=== PATIENT | male | born 1970 | race Caucasian/White ===

== ENCOUNTER 2022-01-24 12:09 | Outpatient (REF) | payer SELFPAY | END 2022-01-24 12:10 | disposition home or self-care (01) | LOC: HO.HOSX 12:09 | PROVIDERS: Visit Provider Orthopaedic Surgery | DX: Z13.89 Encounter for screening for other disorder (principal) ==

== ENCOUNTER 2022-06-11 04:58 | Emergency (ER) | payer MEDICARE, MEDICAID, SELFPAY ==
[2022-06-11 05:08] VITALS: BP 154/89; PULSE 89; RESP 18; TEMP 37.1; O2SAT 97; BMI 29.9
[2022-06-11 06:00] VITALS: BP 127/73; PULSE 81; RESP 17; TEMP 37; O2SAT 96
--- OUTSIDE RECORDS SUMMARY | 2022-06-11 06:16 | XMS_ITS | Continuity of Care Document ---
:1970 Author Organization [facility] Address [address] [place] [address]- Care Team Providers Name Role Phone Ger BYRNE, Shaheed Ellis Primary Care Physician Encounter [facility] Date(s): 07/14/21 - 11/11/[address] [address]- Attending Physician: May Gore NP Allergies, Adverse Reactions, Alerts Substance Reaction Severity Status Thiopental Sodium Active Immunizations Given and Recorded Vaccine Date Status Refusal Reason pneumococcal 23-valent vaccine 05/06/19 Given influenza virus vaccine, inactivated 05/06/19 Given Medications atorvastatin 10 mg oral tablet 1 tablet = 10 mg, By Mouth, Daily, 0 Refills, Maintenance Start Date: 03/26/18 Status: OrderedBetamethasone Valerate 0.1% Cream Topically, 2 times a day, apply to affected area BID - hands, leg, and back. Break x 1 week and repeat as needed, 0 Refills, Maintenance, 05/05/19 11:08:00 EST Start Date: 05/05/19 Status: OrderedCentrum Silver 1 tablet, By Mouth, Daily, 0 Refills, Maintenance, 04/02/20 14:35:00 EDT Start Date: 04/02/20 Status: OrderedDupixent Pre-filled Pen 300 mg/2 mL subcutaneous solution See Instructions, every other week, 0 Refills, Maintenance, 04/02/20 14:35:00 EDT Start Date: 04/02/20 Status: Orderedescitalopram 20 mg oral tablet 1 tablet = 20 mg, By Mouth, Daily, 0 Refills, Maintenance, 09/27/18 23:13:10 EDT Start Date: 09/27/18 Status: Orderedlisinopril 5 mg oral tablet 5 mg, 1, tablet, By Mouth, Daily, # 30 tablet, Refills 0, Maintenance, 05/05/19 3:17:07 EST Start Date: 05/05/19 Status: OrderedmetFORMIN 500 mg oral tablet See Instructions, 2 tabs in AM, 1 at night, 0 Refills, Maintenance, 01/22/17 1:21:41 EDT, Tablet Start Date: 01/22/17 Status: Orderedmometasone 0.1% topical ointment 1 application, Topically, Daily, # 45 Gm, 0 Refills, Maintenance, 04/02/20 14:36:00 EDT, Ointment Start Date: 04/02/20 Status: Orderedtriamcinolone 0.1% topical ointment See Instructions, 1 application Topically 2 times a day 14 days, 0 Refills, Maintenance, 04/02/20 14:37:00 EDT, Ointment Start Date: 04/02/20 Status: Ordered Problem List Condition Effective Dates Status Health Status Informant Hypertension(Confirmed) Active Obese class I(Confirmed) Active Type 2 diabetes mellitus(Confirmed) Active Social History Social History Type Response Smoking Status Current every day smoker entered on: 01/22/17 Sex
--- OUTSIDE RECORDS SUMMARY | 2022-06-11 06:16 | XMS_ITS | Continuity of Care Document ---
:1970 Author Organization [facility] Address [address] [place] [address]- Care Team Providers Name Role Phone Shaheed Cyr MD Primary Care Physician Encounter [facility] Date(s): 01/03/21 - 02/08/21 [facility] [address] [place] [address]- Attending Physician: Dominick Garduno MD Referring Physician: Shaheed Cyr MD Allergies, Adverse Reactions, Alerts Substance Reaction Severity [...] Dates Status Health Status Informant Hypertension(Confirmed) Active Type 2 diabetes mellitus(Confirmed) Active Social History Social History Type Response Smoking Status Current every day smoker entered on: 01/22/17 Sex
--- OUTSIDE RECORDS SUMMARY | 2022-06-11 06:16 | XMS_ITS | Continuity of Care Document ---
:1970 Author Organization [facility] Address [address] [place] [address]- Care Team Providers Name Role Phone Shaheed Cyr MD Primary Care Physician Encounter [facility] Date(s): 11/06/19 - 11/06/[address] [address]- [facility] Discharge Disposition: A-D/C Home Attending Physician: Randell Negrete MD Admitting Physician: Randell Negrete MD Referring Physician: Not on Staff, Referring MD Allergies, Adverse Reactions, Alerts Substance Reaction Severity Status NKA Active Immunizations Given and Recorded Vaccine Date Status Refusal Reason pneumococcal 23-valent vaccine 05/06/19 Given influenza virus vaccine, inactivated 05/06/19 Given Medications Amlodipine = 10 mg, By Mouth, Daily, 0 Refills, Maintenance, 11/06/19 12:48:00 EDT Start Date: 11/06/19 Status: Orderedaspirin 81 mg oral tablet 1 tablet = 81 mg, By Mouth, Daily, # 90 tablet, 0 Refills, Maintenance, 05/05/19 3:17:38 EST, Tablet Start Date: 05/05/19 Status: Orderedatenolol 25 mg oral tablet 25 mg, 1, tablet, By Mouth, Daily, # 30 tablet, Refills 0, Maintenance, 01/22/17 1:21:19 Start Date: 01/22/17 Status: Orderedatorvastatin 10 mg oral tablet 1 tablet = 10 mg, By Mouth, Daily, 0 Refills, Maintenance Start Date: 03/26/18 Status: OrderedBetamethasone Valerate 0.1% Cream Topically, 2 times a day, apply to affected area BID - hands, leg, and back. Break x 1 week and repeat as needed, 0 Refills, Maintenance, 05/05/19 11:08:00 EST Start Date: 05/05/19 Status: Orderedescitalopram 20 mg oral tablet 1 tablet = 20 mg, By Mouth, Daily, 0 Refills, Maintenance, 09/27/18 23:13:10 EDT Start Date: 09/27/18 Status: OrderedGabapentin = 100 mg, By Mouth, Daily, 0 Refills, Maintenance, 11/06/19 12:50:00 EDT Start Date: 11/06/19 Status: OrderedIndomethacin = 50 mg, By Mouth, 3 times a day, 0 Refills, Maintenance, 09/27/18 23:14:02 EDT Start Date: 09/27/18 Status: OrderedKeflex monohydrate 500 mg oral capsule 1 capsule = 500 mg, By Mouth, 4 times a day, for 7 days, # 28 capsule, 0 Refills, Acute 11/13/19 13:22:00 EDT, 11/06/19 13:22:00 EDT, Capsule, [facility][id number], 191, cm, 11/06/19 12:46:00 EDT, Height, 125, kg, 11/06/19 12:46:00 EDT, Dry Weight Start Date: 11/06/19 Stop Date: 11/13/19 Status: Orderedlisinopril 5 mg oral tablet 5 mg, 1, tablet, By Mouth, Daily, # 30 tablet, Refills 0, Maintenance, 05/05/19 3:17:07 EST Start Date: 05/05/19 Status: OrderedmetFORMIN 500 mg oral tablet See Instructions, 2 tabs in AM, 1 at night, 0 Refills, Maintenance, 01/22/17 1:21:41 EDT, Tablet Start Date: 01/22/17 Status: Ordered Problem List Condition Effective Dates Status Health Status Informant Hypertension(Confirmed) Active Type 2 diabetes mellitus(Confirmed) Active Vital Signs Most recent to oldest [Reference Range]: 1 Height 191 cm (11/06/19 12:46 PM) Weight 125 kg (11/06/19 12:46 PM) Oxygen Saturation [94-100 %] 98 % (11/06/19 12:46 PM) Pulse Rate [55-90 bpm] 88 bpm (11/06/19 12:46 PM) Blood Pressure [90-138/55-84 mm Hg] 125/85 mm Hg (11/06/19 12:46 PM) Respiratory Rate [16-30 br/min] 18 br/min (11/06/19 12:46 PM) Temperature [96.8-100.4 DegF] 97.0 DegF (11/06/19 12:46 PM) Mode of Delivery (Oxygen) Room air (11/06/19 12:46 PM) Blood pressure sites Arm, right (11/06/19 12:46 PM) Temperature Route Temporal (11/06/19 12:46 PM) Dry Weight 125 kg (11/06/19 12:46 PM) Weight Obtained Via Patient/family stated (11/06/19 12:46 PM) Social History Social History Type Response Smoking Status Current every day smoker entered on: 01/22/17 Sex
--- OUTSIDE RECORDS SUMMARY | 2022-06-11 06:16 | XMS_ITS | Continuity of Care Document ---
:1970 Author Organization [facility] Address [address] [place] [address]- Care Team Providers Name Role Phone Shaheed Cyr MD Primary Care Physician Encounter [facility] Date(s): 08/14/20 - 09/13/20 [facility] [place] [address] [place], [place] [address] Allergies, Adverse Reactions, Alerts Substance Reaction Severity Status Thiopental Sodium Active Immunizations Given and Recorded Vaccine Date Status Refusal Reason pneumococcal 23-valent vaccine 05/06/19 Given influenza virus vaccine, inactivated 05/06/19 Given Medications Amlodipine = 10 mg, By Mouth, Daily, 0 Refills, Maintenance, 11/06/19 12:48:00 EDT Start Date: 11/06/19 Status: Orderedatorvastatin 10 mg oral tablet 1 [...] 04/02/20 14:35:00 EDT Start Date: 04/02/20 Status: OrderedDiflucan 150 mg oral tablet 1 tablet = 150 mg, By Mouth, Once, # 1 tablet, 0 Refills, Soft Stop, 01/20/20 13:56:00 EDT, Tablet, [facility] #[id number], 193, cm, 01/20/20 12:58:00 EDT, Height, 118.7, kg, 01/20/20 12:58:00 EDT, Dry Weight Start Date: 01/20/20 Status: OrderedDupixent Pre-filled Pen 300 mg/2 mL [...] 11/06/19 12:50:00 EDT Start Date: 11/06/19 Status: Orderedgabapentin 300 mg oral capsule 300 mg, 1, capsule, By Mouth, 4 times a day, # 56 capsule, Refills 0, Tot. Refills 0, Maintenance, 04/02/20 15:21:00 EDT, Route to Pharmacy Electronically, [facility] #[id number], 191, cm, 04/02/20 14:26:00 EDT, Height, 121, kg, 04/02/20 14:26:00... Start Date: 04/02/20 Stop Date: 04/16/20 Status: OrderedIndomethacin = 50 mg, By Mouth, 3 times a day, 0 Refills, Maintenance, 09/27/18 23:14:02 EDT Start Date: 09/27/18 Status: Orderedlisinopril 5 [...]
--- OUTSIDE RECORDS SUMMARY | 2022-06-11 06:16 | XMS_ITS | Continuity of Care Document ---
:1970 Author Organization [facility] Address [address] [place] [address]- Care Team Providers Name Role Phone Shaheed Cyr MD Primary Care Physician Encounter [facility] Date(s): 07/11/20 - 07/11/[address] [address] Discharge Disposition: A-D/C Home Attending Physician: Michael Sanchez MD Admitting Physician: Michael Sanchez MD Referring Physician: Michael Sanchez MD Allergies, Adverse Reactions, Alerts Substance Reaction Severity Status Thiopental Sodium Active Immunizations Given and Recorded Vaccine Date Status Refusal Reason pneumococcal 23-valent vaccine 05/06/19 Given influenza virus vaccine, inactivated 05/06/19 Given Medications Amlodipine = 10 mg, By Mouth, Daily, 0 Refills, Maintenance, 11/06/19 12:48:00 EDT Start Date: 11/06/19 Status: Orderedatenolol 25 mg oral tablet 25 mg, 1, tablet, By Mouth, Daily, # 30 tablet, Refills 0, Maintenance, 01/22/17 1:21:19 Start Date: 01/22/17 Status: Orderedatenolol 50 mg oral tablet 50 mg, Tablet, By Mouth, Once, STAT, 07/11/20 14:09:00 EST, Stop date 07/11/20 14:09:00 EST Start Date: 07/11/20 Stop Date: 07/11/20 Status: Completedatorvastatin 10 mg oral tablet 1 tablet = [...] Refills, Soft Stop, 01/20/20 13:56:00 EDT, Tablet, [facility] #[id number], 193, cm, 01/20/20 12:58:00 EDT, Height, 118.7, [...] 04/02/20 15:21:00 EDT, Route to Pharmacy Electronically, [facility] #[id number], 191, cm, 04/02/20 14:26:00 EDT, Height, 121, [...] 14:36:00 EDT, Ointment Start Date: 04/02/20 Status: OrderedNuLYTELY with Flavor Packs oral powder for reconstitution 240 mL, By Mouth, Every 15 minutes, # 4,000 mL, 0 Refills, Maintenance, 07/11/20 14:16:00 EST, [facility] #[id number], Partial fill upon patient request if the prescription is for a schedule II opioid drug., 240 mL By Mouth Every 15 minutes, 191,... Start Date: 07/11/20 Status: Orderedtriamcinolone 0.1% topical ointment See Instructions, 1 application Topically 2 times a day 14 days, 0 Refills, Maintenance, 04/02/20 14:37:00 EDT, Ointment Start Date: 04/02/20 Status: Ordered Problem List Condition Effective Dates Status Health Status Informant Hypertension(Confirmed) Active Type 2 diabetes mellitus(Confirmed) Active Vital Signs Most recent to oldest 1 2 3 [Reference Range]: Height 191 cm (07/11/20 12:27 PM) Oxygen Saturation [94-100 %] 95 % 95 % 96 % (07/11/20 1:58 PM) (07/11/20 1:44 PM) (07/11/20 1:28 P M) Pulse Rate [55-90 bpm] 136 bpm 136 bpm 128 bpm *H* *H* *H* (07/11/20 2:31 PM) (07/11/20 2:25 PM) (07/11/20 12:27 PM) Blood Pressure [90-138/55-84 mm 124/74 mm Hg 124/74 mm Hg 118/87 mm Hg Hg] (07/11/20 2:31 PM) (07/11/20 2:25 PM) (07/11/20 1:58 P M) Respiratory Rate [16-30 br/min] 41 br/min 21 br/min 14 br/min *H* (07/11/20 1:44 PM) *L* (07/11/20 1:58 PM) (07/11/20 1:28 PM ) Temperature [96.8-100.4 DegF] 98.3 DegF (07/11/20 12:27 PM) Mode of Delivery (Oxygen) Room air Room air Room a ir (07/11/20 1:16 PM) (07/11/20 12:58 PM) (07/11/20 12:27 PM) Blood pressure sites Arm, right (07/11/20 12:27 PM) Temperature Route Temporal (07/11/20 12:27 PM) Dry Weight 121 kg (07/11/20 12:27 PM) Social History Social History Type Response Smoking Status Current every day smoker entered on: 01/22/17 Sex
--- OUTSIDE RECORDS SUMMARY | 2022-06-11 06:16 | XMS_ITS | Continuity of Care Document ---
:1970 Author Organization [facility] Address [address] [place] [address]- Care Team Providers Name Role Phone Ger BYRNE, Shaheed Ellis Primary Care Physician Encounter [facility] Date(s): 04/11/22 - 05/11/22 [facility] [address] [place] [address]- Allergies, Adverse Reactions, Alerts Substance Reaction Severity Status Thiopental Sodium Active Immunizations Given and Recorded Vaccine Date Status Refusal Reason pneumococcal 23-valent vaccine 05/06/19 Given influenza virus vaccine, inactivated 05/06/19 Given Medications atenolol 50 mg oral tablet 50 mg, 1, tablet, By Mouth, Daily, # 90 tablet, Refills 3, Tot. Refills 3, Maintenance, 02/06/22 11:24:00 EDT, Route to Pharmacy Electronically, [facility] #[id number], Partial fill upon patient request if the prescription is for a schedule II op... Start Date: 02/06/22 Stop Date: 02/01/23 Status: Orderedatorvastatin 10 mg oral tablet 1 [...] 04/02/20 14:35:00 EDT Start Date: 04/02/20 Status: OrderedEliquis 5 mg oral tablet 1 tablet, By Mouth, 2 times a day, for 90 days, # 180 tablet, 3 Refills, Physician Stop 02/02/23 14:15:00 EDT, 02/07/22 14:15:00 EDT, [facility] #[id number], 188, cm, 07/06/21 16:05:00 EST, Height, 115, kg, 01/22/21 10:32:00 EDT, Dry Weight Start Date: 02/07/22 Stop Date: 02/02/23 Status: Orderedescitalopram 20 mg oral tablet 1 tablet = 20 mg, By Mouth, Daily, 0 Refills, Maintenance, 09/27/18 23:13:10 EDT Start Date: 09/27/18 Status: Orderedlisinopril 5 mg oral tablet 5 mg, 1, tablet, By Mouth, Daily, # 30 tablet, Refills 0, Maintenance, 05/05/19 3:17:07 EST Start Date: 05/05/19 Status: Orderedmagnesium aspartate See Instructions, Patient is unaware of doseage, 0 Refills, Maintenance, 04/12/22 15:33:00 EDT, Partial fill upon patient request if the prescription is for a schedule II opioid drug. Start Date: 04/12/22 Status: OrderedmetFORMIN 500 mg oral tablet See Instructions, 2 tabs in AM, 2 at night, 0 Refills, Maintenance, 01/22/17 1:21:41 EDT, Tablet Start Date: 01/22/17 Status: Orderedmometasone 0.1% topical ointment 1 application, Topically, Daily, # 45 Gm, 0 Refills, Maintenance, 04/02/20 14:36:00 EDT, Ointment Start Date: 04/02/20 Status: Orderedpioglitazone 30 mg oral tablet 1 tablet = 30 mg, By Mouth, Daily, # 30 tablet, 0 Refills, Maintenance, 04/12/22 15:34:00 EDT, Tablet, Partial fill upon patient request if the prescription is for a schedule II opioid drug. Start Date: 04/12/22 Status: OrderedTiadylt ER 180 mg/24 hours oral capsule, extended release 1 capsule, By Mouth, Daily, for 90 days, # 90 capsule, 3 Refills, Physician Stop 02/24/23 9:39:00 EDT, 03/01/22 9:39:00 EDT, [facility] #[id number], 188, cm, 07/06/21 16:05:00 EST, Height, 115, kg, 01/22/21 10:32:00 EDT, Dry Weight Start Date: 03/01/22 Stop Date: 02/24/23 Status: Orderedtriamcinolone 0.1% topical ointment See Instructions, 1 application Topically 2 times a day 14 days, 0 Refills, Maintenance, 04/02/20 14:37:00 EDT, Ointment Start Date: 04/02/20 Status: Ordered Problem List Condition Confirmation Course Effective Dates Status Health Stat us Informant Hypertension Confirmed Active Obese class I Confirmed Active Type 2 diabetes Confirmed Active mellitus Social History Social History Type Response Smoking Status Current every day smoker entered on: 01/22/17 Sex Patient Care team information Care Team PersonnelName: Shhaeed Cyr MD Position: [facility] Oncology MD Member Role: PCP Address: Address: [address] [place] [address] [address] Shaheed Cyr III, [place] [address]- Care Team Related PersonsName: SHERITA MCKEON Address: home [address] [place] [id number] Name: SHERITA WOODS Address: home [address] [place] [id number]
--- OUTSIDE RECORDS SUMMARY | 2022-06-11 06:16 | XMS_ITS | Continuity of Care Document ---
:1970 Author Organization [facility] Address [address] [place] [address]- Care Team Providers Name Role Phone Ger BYRNE, Shaheed Ellis Primary Care Physician Encounter [facility] Date(s): 11/22/19 - 02/09/20 [facility] [address] [place] [address]- [facility] Attending Physician: Rajendra Hernandez MD Allergies, Adverse Reactions, Alerts Substance Reaction [...] 05/05/19 11:08:00 EST Start Date: 05/05/19 Status: OrderedDiflucan 150 mg oral tablet 1 tablet = 150 mg, By Mouth, Once, # 1 tablet, 0 Refills, Soft Stop, 01/20/20 13:56:00 EDT, Tablet, [facility] #[id number], 193, cm, 01/20/20 12:58:00 EDT, Height, 118.7, kg, 01/20/20 12:58:00 EDT, Dry Weight Start Date: 01/20/20 Status: Orderedescitalopram 20 mg oral tablet 1 [...]
--- OUTSIDE RECORDS SUMMARY | 2022-06-11 06:16 | XMS_ITS | Continuity of Care Document ---
:1970 Author Organization [facility] Address [address] [place] [address]- Care Team Providers Name Role Phone Shaheed Cyr MD Primary Care Physician Encounter [facility] Date(s): 05/21/21 - 06/20/21 [facility] [address] [place] [address]- Attending Physician: Melany Lambert Admitting Physician: Melany Lambert Referring Physician: trMelany Allergies, Adverse Reactions, Alerts Substance Reaction Severity [...]
--- OUTSIDE RECORDS SUMMARY | 2022-06-11 06:16 | XMS_ITS | Continuity of Care Document ---
:1970 Author Organization [facility] Address [address] [place] [address]- Care Team Providers Name Role Phone Shaheed Cyr MD Primary Care Physician Encounter [facility] Date(s): 11/20/20 - 02/11/[address] [address] Attending Physician: Michael Sanchez MD Admitting Physician: Michael Sanchez MD Allergies, Adverse Reactions, [...]
--- OUTSIDE RECORDS SUMMARY | 2022-06-11 06:16 | XMS_ITS | Continuity of Care Document ---
:1970 Author Organization [facility] Address [address] [place] [address]- Care Team Providers Name Role Phone Shaheed Cyr MD Primary Care Physician Encounter [facility] Date(s): 09/25/20 - 09/25/[address] [address]- Discharge Disposition: A-D/C Home Attending Physician: Michael [...] Refills, Soft Stop, 01/20/20 13:56:00 EDT, Tablet, [facility] #[id number], 193, cm, 01/20/20 12:58:00 EDT, Height, 118.7, [...] 04/02/20 15:21:00 EDT, Route to Pharmacy Electronically, [facility][id number], 191, cm, 04/02/20 14:26:00 EDT, Height, 121, [...] Hypertension(Confirmed) Active Type 2 diabetes mellitus(Confirmed) Active Procedures Procedure Date Related Diagnosis Body Site Status Colonoscopy 09/25/20 Completed Esophagogastroduodenoscopy 09/25/20 C ompleted Vital Signs Most recent to oldest 1 2 3 [Reference Range]: Height 191 cm (09/25/20 1:10 PM) Oxygen Saturation [94-100 90 % 90 % 93 % %] *L* *L* *L* (09/25/20 3:26 PM) (09/25/20 3:21 PM) (09/25/20 3:1 6 PM) Pulse Rate [55-90 bpm] 80 bpm (09/25/20 1:10 PM) Blood Pressure 99/56 mm Hg 96/62 mm Hg 100/70 mm Hg [90-138/55-84 mm Hg] (09/25/20 3:26 PM) (09/25/20 3:21 PM) ( 3:16 PM) Respiratory Rate [16-30 19 br/min 17 br/min 17 br/mi n br/min] (09/25/20 3:26 PM) (09/25/20 3:21 PM) (09/25/20 3:1 6 PM) Temperature [96.8-100.4 99.3 DegF 96.2 DegF DegF] (09/25/20 3:07 PM) *L* (09/25/20 1:10 PM) Mode of Delivery (Oxygen) Room air Room air Room a ir (09/25/20 3:26 PM) (09/25/20 3:21 PM) (09/25/20 3:0 7 PM) Blood pressure sites Arm, left (09/25/20 1:10 PM) Temperature Route Temporal Temporal (09/25/20 3:07 PM) (09/25/20 1:10 PM) Dry Weight 118.5 kg (09/25/20 1:10 PM) Dry Weight Obtained Via Patient/family stated (09/25/20 1:10 PM) Social History Social History Type Response Smoking Status Current every day smoker entered on: 01/22/17 Sex
--- OUTSIDE RECORDS SUMMARY | 2022-06-11 06:16 | XMS_ITS | Continuity of Care Document ---
:1970 Author Organization [facility] Address [address] [place] [address]- Care Team Providers Name Role Phone Shaheed Cyr MD Primary Care Physician Encounter [facility] Date(s): 04/11/22 - 05/16/[address] [address] Attending Physician: Shaheed Cyr MD Admitting Physician: Shaheed Cyr MD Referring Physician: Shaheed Cyr MD Allergies, [...] 02/06/22 11:24:00 EDT, Route to Pharmacy Electronically, [facility] #[id number], Partial fill upon patient request if the [...] Stop 02/02/23 14:15:00 EDT, 02/07/22 14:15:00 ED[id number], 188, cm, 07/06/21 16:05:00 EST, Height, 115, [...] Stop 02/24/23 9:39:00 EDT, 03/01/22 9:39:00 EDT, [id number], 188, cm, 07/06/21 16:05:00 EST, Height, 115, [...] Patient Care team information Care Team PersonnelName: Shaheed Cyr MD Position: [facility] Oncology MD Member Role: PCP Address: Address: [address] [place] [address] [address] [place] [address]- Care Team Related PersonsName: SHERITA MCKEON Address: home [address] [place] [id number] Name: SHERITA WOODS Address: home [address] [address] [place] [address]
--- OUTSIDE RECORDS SUMMARY | 2022-06-11 06:16 | XMS_ITS | Continuity of Care Document ---
:1970 Author Organization [facility] Address [address] [place] [address]- Care Team Providers Name Role Phone Ger BYRNE, Shaheed Ellis Primary Care Physician Encounter [facility] Date(s): 02/20/21 - 06/20/21 [facility] [address] [place], [place] [address] Attending Physician: May Gore NP Allergies, Adverse [...]
--- OUTSIDE RECORDS SUMMARY | 2022-06-11 06:16 | XMS_ITS | Continuity of Care Document ---
:1970 Author Organization [facility] Address [address] [place] [address]- Care Team Providers Name Role Phone Shaheed Cyr MD Primary Care Physician Encounter [facility] Date(s): 01/20/20 - 01/20/[address] [address]- [facility] Discharge Disposition: A-D/C Home Attending Physician: Sheela Mendoza MD Admitting Physician: Sheela Mendoza MD Referring Physician: Not on Staff, Referring [...] Refills, Soft Stop, 01/20/20 13:56:00 EDT, Tablet, [facility] #[id number], 193, cm, 01/20/20 12:58:00 EDT, Height, 118.7, [...] days, # 28 capsule, 0 Refills, Acute 01/27/20 13:53:00 EDT, 01/20/20 13:53:00 EDT, Capsule, [facility] #[id number], 193, cm, 01/20/20 12:58:00 EDT, Height, 118.7, kg, 01/20/20 12:58:00 EDT, Dry W... Start Date: 01/20/20 Stop Date: 01/27/20 Status: Orderedlisinopril 5 mg oral tablet 5 mg, 1, tablet, By Mouth, Daily, # 30 tablet, Refills 0, Maintenance, 05/05/19 3:17:07 EST Start Date: 05/05/19 Status: OrderedmetFORMIN 500 mg oral tablet See Instructions, 2 tabs in AM, 1 at night, 0 Refills, Maintenance, 01/22/17 1:21:41 EDT, Tablet Start Date: 01/22/17 Status: Orderedtriamcinolone 0.05% topical ointment 1 application, Topically, 2 times a day, for 5 days, apply a thin film, do not apply to face, # 430 Gm, 0 Refills, Acute 01/25/20 13:55:00 EDT, 01/20/20 13:55:00 EDT, Ointment, [id number], 1 application Topically 2 times a day,x5 days... Start Date: 01/20/20 Stop Date: 01/25/20 Status: Ordered Problem List Condition Effective Dates Status Health Status Informant Hypertension(Confirmed) Active Type 2 diabetes mellitus(Confirmed) Active Vital Signs Most recent to oldest [Reference Range]: 1 Height 193 cm (01/20/20 12:58 PM) Weight 118.7 kg (01/20/20 12:58 PM) Oxygen Saturation [94-100 %] 97 % (01/20/20 12:58 PM) Pulse Rate [55-90 bpm] 92 bpm *H* (01/20/20 12:58 PM) Blood Pressure [90-138/55-84 mm Hg] 125/91 mm Hg (01/20/20 12:58 PM) Respiratory Rate [16-30 br/min] 16 br/min (01/20/20 12:58 PM) Temperature [96.8-100.4 DegF] 97.7 DegF (01/20/20 12:58 PM) Mode of Delivery (Oxygen) Room air (01/20/20 12:58 PM) Blood pressure sites Arm, left (01/20/20 12:58 PM) Temperature Route Oral (01/20/20 12:58 PM) Dry Weight 118.7 kg (01/20/20 12:58 PM) Weight Obtained Via Standing scale (01/20/20 12:58 PM) Dry Weight Obtained Via Standing scale (01/20/20 12:58 PM) Social History Social History Type Response Smoking Status Current every day smoker entered on: 01/22/17 Sex
--- OUTSIDE RECORDS SUMMARY | 2022-06-11 06:16 | XMS_ITS | Continuity of Care Document ---
:1970 Author Organization [facility] Address [address] [place] [address]- Care Team Providers Name Role Phone Shaheed Cyr MD Primary Care Physician Encounter [facility] Date(s): 10/12/21 - 11/11/[address] [address] Attending Physician: Melany Lambert Admitting Physician: Melany Lambert Referring Physician: AdmtrMelany Allergies, Adverse Reactions, Alerts Substance Reaction Severity [...]
--- OUTSIDE RECORDS SUMMARY | 2022-06-11 06:16 | XMS_ITS | Continuity of Care Document ---
:1970 Author Organization [facility] Address [address] [place] [address]- Care Team Providers Name Role Phone Shaheed Cyr MD Primary Care Physician Encounter [facility] Date(s): 04/11/22 - 05/15/[address] [address] Attending Physician: Shaheed Cyr MD Admitting Physician: [...] 02/06/22 11:24:00 EDT, Route to Pharmacy Electronically, [facility] #[id number], Partial fill upon patient request if the [...] Stop 02/02/23 14:15:00 EDT, 02/07/22 14:15:00 EDT, [id number], 188, cm, 07/06/21 16:05:00 EST, Height, 115, [...] Stop 02/24/23 9:39:00 EDT, 03/01/22 9:39:00 EDT, [facility][id number], 188, cm, 07/06/21 16:05:00 EST, Height, 115, [...] Care Team PersonnelName: Shaheed Cyr MD Position: [facility] Oncology MD Member Role: PCP Address: Address: [address] [place] [address] [address] [place] [address]- Care Team Related PersonsName: SHERITA MCKEON Address: home [address] [facility] [place] [address] Name: SHERITA WOODS Address: home [address] [place] [address]
--- OUTSIDE RECORDS SUMMARY | 2022-06-11 06:16 | XMS_ITS | Continuity of Care Document ---
:1970 Author Organization [facility] Address [address] [place] [address]- Care Team Providers Name Role Phone Shaheed Cyr MD Primary Care Physician Encounter [facility] Date(s): 10/25/20 - 12/21/[address] [address] Attending Physician: Michael Sanchez [...] 09/27/18 23:13:10 EDT Start Date: 09/27/18 Status: Orderedgabapentin 300 mg oral capsule 300 mg, 1, capsule, By Mouth, 4 times a day, # 56 capsule, Refills 0, Tot. Refills 0, Maintenance, 04/02/20 15:21:00 EDT, Route to Pharmacy Electronically, [facility] #[id number], 191, cm, 04/02/20 14:26:00 EDT, Height, 121, [...]
--- OUTSIDE RECORDS SUMMARY | 2022-06-11 06:16 | XMS_ITS | Continuity of Care Document ---
:1970 Author Organization [facility] Address [address] [place] [address]- Care Team Providers Name Role Phone Shaheed Cyr MD Primary Care Physician Encounter [facility] Date(s): 05/18/19 - 09/04/19 [facility] [place] [address] [place] [address]- [facility] Attending Physician: Rajendra Hernandez MD Referring Physician: Shaheed Cyr MD Allergies, Adverse Reactions, Alerts Substance Reaction Severity Status NKA Active Immunizations Given and Recorded Vaccine Date Status Refusal Reason pneumococcal 23-valent vaccine 05/06/19 Given influenza virus vaccine, inactivated 05/06/19 Given Medications Allopurinol Refills 0, Maintenance, 09/27/18 23:14:12 EDT Start Date: 09/27/18 Status: Orderedaspirin 81 mg oral tablet 1 [...] 05/05/19 11:08:00 EST Start Date: 05/05/19 Status: OrderedBetamethasone Valerate 0.1% Ointment Topically, 2 times a day, apply to affected area BID - hands, leg, and back. Break x 1 week and repeat as needed, 0 Refills, Maintenance, 05/05/19 11:09:28 EST Start Date: 05/05/19 Status: Orderedescitalopram 20 mg oral tablet 1 tablet = 20 mg, By Mouth, Daily, 0 Refills, Maintenance, 09/27/18 23:13:10 EDT Start Date: 09/27/18 Status: OrderedIndomethacin 0 Refills, Maintenance, 09/27/18 23:14:02 EDT Start Date: 09/27/18 Status: Orderedlisinopril 5 mg oral tablet 5 mg, 1, tablet, By Mouth, Daily, # 30 tablet, Refills 0, Maintenance, 05/05/19 3:17:07 EST Start Date: 05/05/19 Status: OrderedmetFORMIN 500 mg oral tablet See Instructions, 2 tabs in AM, 1 at night, 0 Refills, Maintenance, 01/22/17 1:21:41 EDT, Tablet Start Date: 01/22/17 Status: Orderedtriamcinolone 0.1% topical cream Topically, 2 times a day, to affected area BID, 0 Refills, Maintenance, 05/05/19 11:10:34 EST Start Date: 05/05/19 Status: Ordered Problem List Condition Effective Dates Status Health Status Informant Hypertension(Confirmed) Active Type 2 diabetes mellitus(Confirmed) Active Social History Social History Type Response Smoking Status Current every day smoker entered on: 01/22/17 Sex
--- OUTSIDE RECORDS SUMMARY | 2022-06-11 06:16 | XMS_ITS | Continuity of Care Document ---
:1970 Author Organization [facility] Address [address] [place] [address]- Care Team Providers Name Role Phone Shaheed Cyr MD Primary Care Physician Encounter [facility] Date(s): 05/16/21 - 06/15/21 [facility] [place] [address] [place], [place] [address] Attending Physician: Melany Lambert Admitting Physician: Melany Lambert Referring Physician: Melany Lambert Allergies, Adverse Reactions, Alerts Substance Reaction Severity [...]
--- OUTSIDE RECORDS SUMMARY | 2022-06-11 06:16 | XMS_ITS | Continuity of Care Document ---
:1970 Author Organization [facility] Address [address] [place] [address]- Care Team Providers Name Role Phone Shaheed Cyr MD Primary Care Physician Encounter [facility] Date(s): 05/17/21 - 08/10/[address] [address] [phone] Attending Physician: Michael Sanchez MD Admitting Physician: [...]
--- OUTSIDE RECORDS SUMMARY | 2022-06-11 06:16 | XMS_ITS | Continuity of Care Document ---
:1970 Author Organization [facility] Address [address] [place] [address]- Care Team Providers Name Role Phone Shaheed Cyr MD Primary Care Physician Encounter [facility] Date(s): 04/02/20 - 04/02/[address] [address]- [facility] Encounter Diagnosis Herpes zoster (Final) - 04/02/20 Discharge Disposition: A-D/C Home Attending Physician: Naldo French MD Admitting Physician: Naldo French MD Referring Physician: Not on Staff, Referring [...] Refills, Soft Stop, 01/20/20 13:56:00 EDT, [facility]t, [id number], 193, cm, 01/20/20 12:58:00 EDT, Height, 118.7, [...] 04/02/20 15:21:00 EDT, [facility] to [facility]ically[id number], 191, cm, 04/02/20 14:26:00 EDT, Height, 121, [...] 14:37:00 EDT, Ointment Start Date: 04/02/20 Status: OrderedValtrex 1 gm oral tablet 1 tablet = 1 Gm, By Mouth, 3 times a day, for 7 days, # 21 tablet, 0 Refills, Acute 04/09/20 15:21:00 EST, 04/02/20 15:21:00 EDT, Tablet, [facility] #[id number], 191, cm, 04/02/20 14:26:00 EDT, Height, 121, kg, 04/02/20 14:26:00 EDT, Dry Weight Start Date: 04/02/20 Stop Date: 04/09/20 Status: Ordered Problem List Condition Effective Dates Status Health Status Informant Hypertension(Confirmed) Active Type 2 diabetes mellitus(Confirmed) Active Vital Signs Most recent to oldest [Reference Range]: 1 2 Height 191 cm 191 cm (04/02/20 3:51 PM) (04/02/20 2:26 PM) Weight 121.0 kg 121.0 kg (04/02/20 3:51 PM) (04/02/20 2:26 PM) Oxygen Saturation [94-100 %] 95 % 96 % (04/02/20 3:51 PM) (04/02/20 2:26 PM) Pulse Rate [55-90 bpm] 64 bpm 91 bpm (04/02/20 3:51 PM) *H* (04/02/20 2:26 PM) Body Mass Index [18.5-24.99] 33.17 *>HHI* (04/02/20 3:51 PM) Blood Pressure [90-138/55-84 mm Hg] 125/103 mm Hg 123/ 84 mm Hg (04/02/20 3:51 PM) (04/02/20 2:26 PM) Respiratory Rate [16-30 br/min] 20 br/min 16 br/mi n (04/02/20 3:51 PM) (04/02/20 2:26 PM) Temperature [96.8-100.4 DegF] 97.9 DegF 98.0 DegF (04/02/20 3:51 PM) (04/02/20 2:26 PM) Mode of Delivery (Oxygen) Room air Room air (04/02/20 3:51 PM) (04/02/20 2:26 PM) Blood pressure sites Arm, left Arm, left (04/02/20 3:51 PM) (04/02/20 2:26 PM) Temperature Route Oral Temporal (04/02/20 3:51 PM) (04/02/20 2:26 PM) Dry Weight 121.0 kg 121.0 kg (04/02/20 3:51 PM) (04/02/20 2:26 PM) Social History Social History Type Response Smoking Status Current every day smoker entered on: 01/22/17 Sex
--- OUTSIDE RECORDS SUMMARY | 2022-06-11 06:16 | XMS_ITS | Continuity of Care Document ---
:1970 Author Organization [facility] Address [address] [place] [address]- Care Team Providers Name Role Phone Ger BYRNE, Shaheed Ellis Primary Care Physician Encounter [facility] Date(s): 07/31/20 - 08/30/[address] [address]- Allergies, Adverse Reactions, Alerts Substance Reaction Severity [...] Refills, Soft Stop, 01/20/20 13:56:00 EDT, Tablet, [facility] #[id number], 193, cm, 01/20/20 12:58:00 EDT, Height, 118.7, [...] 04/02/20 15:21:00 EDT, Route to Pharmacy Electronically, [facility] #[id number], 191, cm, 04/02/20 14:26:00 EDT, Height, 121, [...]
--- OUTSIDE RECORDS SUMMARY | 2022-06-11 06:16 | XMS_ITS | Continuity of Care Document ---
:1970 Author Organization [facility] Address [address] [place] [address]- Care Team Providers Name Role Phone Ger BYRNE, Shaheed Ellis Primary Care Physician Encounter [facility] Date(s): 01/23/21 - 02/22/21 [facility] [address] [place] [address]- Allergies, Adverse Reactions, Alerts Substance Reaction Severity [...]
--- OUTSIDE RECORDS SUMMARY | 2022-06-11 06:16 | XMS_ITS | Continuity of Care Document ---
:1970 Author Organization [facility] Address [address] [place] [address]- Care Team Providers Name Role Phone Shaheed Cyr MD Primary Care Physician Encounter [facility] Date(s): 04/12/22 - 05/12/[address] [address]- Attending Physician: Melany Lambert Admitting Physician: Melany [...] 02/06/22 11:24:00 EDT, Route to Pharmacy Electronically, [facility] #[id number], Partial fill upon patient request if the [...] Stop 02/02/23 14:15:00 EDT, 02/07/22 14:15:00 EDT, [id number], 188, cm, 07/06/21 16:05:00 EST, Height, 115, [...] Stop 02/24/23 9:39:00 EDT, 03/01/22 9:39:00 EDT, [facility][id number], 188, cm, 07/06/21 16:05:00 EST, Height, 115, [...] Care Team PersonnelName: Shaheed Cyr MD Position: [facility] Oncology MD Member Role: PCP Address: Address: [address] [place] [address] [address] [place] [address]- Care Team Related PersonsName: SHERITA MCKEON Address: home [address] [place] [address] Name: SHERITA WOODS Address: home [address] [place] [address]
--- OUTSIDE RECORDS SUMMARY | 2022-06-11 06:16 | XMS_ITS | Continuity of Care Document ---
:1970 Author Organization [facility] Address [address] [place] [address]- Care Team Providers Name Role Phone Ger BYRNE, Shaheed Ellis Primary Care Physician Encounter [facility] Date(s): 12/04/20 - 01/03/21 [facility] [address] [place] [address]- Allergies, Adverse Reactions, Alerts Substance Reaction Severity [...] 04/02/20 15:21:00 EDT, Route to Pharmacy Electronically, [facility] #[id number], 191, cm, 04/02/20 14:26:00 EDT, Height, 121, kg, 04/02/20 14:26:00... Start Date: 04/02/20 Stop Date: 04/16/20 Status: Orderedlisinopril 5 mg oral tablet 5 [...]
--- OUTSIDE RECORDS SUMMARY | 2022-06-11 06:16 | XMS_ITS | Continuity of Care Document ---
:1970 Author Organization [facility] Address [address] [place] [address]- Care Team Providers Name Role Phone Ger BYRNE, Shaheed Ellis Primary Care Physician Encounter [facility] Date(s): 11/16/20 - 02/03/[address] [address]- Attending Physician: Dominick Garduno MD Allergies, Adverse Reactions, Alerts Substance Reaction [...]
--- OUTSIDE RECORDS SUMMARY | 2022-06-11 06:16 | XMS_ITS | Continuity of Care Document ---
:1970 Author Organization [facility] Address [address] [place] [address]- Care Team Providers Name Role Phone Shaheed Cyr MD Primary Care Physician Encounter [facility] Date(s): 01/22/21 - 01/22/[address] [address]- Discharge Disposition: A-D/C [facility] Attending Physician: Barbara Irving MD Admitting Physician: Barbara Irving MD Referring Physician: Naldo French MD Allergies, Adverse Reactions, Alerts Substance Reaction [...] Hypertension(Confirmed) Active Type 2 diabetes mellitus(Confirmed) Active Results Radiology Reports Exam Date Time Procedure Performing Provider Status 01/22/21 10:59 AM Chest Portable Brenda Calhoun; Auth (Verified) Notes:(Chest Portable) Reason For Exam: Shortness of BreathRESULT: Chest Portable Chest Portable Hx of Present Illness: pt reports he was in the shower this morning when he suddenly felt weak then had a syncopal episode, pt not sure if there was head truama, pt reports he thinks he had loc for 5 minutes, pt now reports hortness of breath and palpitations,; Reason: Shortness of Breath; Clinical Question(s): CHF COMPARISON: Multiple priors, most recent 05/05/2019. FINDINGS: LINES AND TUBES: Redemonstration of a thoracic spinal stimulator. Additional monitoring leads project over the chest. LUNGS AND PLEURA: Clear lungs. Normal pulmonary vascularity. No pleural effusion. No pneumothorax. HEART, MEDIASTINUM AND BRENDA: Heart is normal in size. Normal upper mediastinal and hilar contour. BONES AND SOFT TISSUES: No acute abnormality. Degenerative changes of the glenohumeral joints. IMPRESSION: No acute abnormality. WSN: [id number] Ordering Physician: Naldo French Dictated By: Frank Dickens MD Dictated Date/Time: 01/22/21 11:17 a Reviewed By: Frank Dickens MD Signed By: Frank Dickens MD Signed Date/Time: 01/22/21 11:17 am Transcribed By: KARLA Transcribed Date/Time: 01/22/21 11:16 am Vital Signs Most recent to oldest 1 2 3 [Reference Range]: Height 187 cm 187 cm 187 cm (01/22/21 6:32 PM) (01/22/21 2:23 PM) (01/22/21 10: 32 AM) Weight 115 kg (01/22/21 10:32 AM) Oxygen Saturation [94-100 %] 100 % 98 % 97 % (01/22/21 6:32 PM) (01/22/21 5:48 PM) (01/22/21 2:2 3 PM) Pulse Rate [55-90 bpm] 88 bpm 88 bpm 109 bpm (01/22/21 6:32 PM) (01/22/21 5:48 PM) *H* (01/22/21 2:23 PM ) Blood Pressure [90-138/55-84 122/71 mm Hg 105/80 mm Hg 128 /93 mm Hg mm Hg] (01/22/21 6:32 PM) (01/22/21 5:48 PM) (01/22/21 2:2 3 PM) Respiratory Rate [16-30 18 br/min 18 br/min 25 br/mi n br/min] (01/22/21 6:32 PM) (01/22/21 5:48 PM) (01/22/21 2:2 3 PM) Temperature [96.8-100.4 DegF] 97.4 DegF (01/22/21 10:29 AM) Mode of Delivery (Oxygen) Room air Room air Room a ir (01/22/21 6:32 PM) (01/22/21 5:48 PM) (01/22/21 2:2 3 PM) Blood pressure sites Arm, right Arm, left (01/22/21 6:32 PM) (01/22/21 2:23 PM) Temperature Route Oral (01/22/21 10:29 AM) Dry Weight 115 kg (01/22/21 10:32 AM) Social History Social History Type Response Smoking Status Current every day smoker entered on: 01/22/17 Sex
--- OUTSIDE RECORDS SUMMARY | 2022-06-11 06:17 | XMS_ITS | Continuity of Care Document ---
:1970 Author Organization [facility] Address [address] [place] [address]- Care Team Providers Name Role Phone Shaheed Cyr MD Primary Care Physician Encounter [facility] Date(s): 08/05/19 - 08/15/19 [facility] [place] [address] [place] [address]- [facility] Attending Physician: Melany Lambert Admitting Physician: AdmMelany keith Referring Physician: AdmtrMelany Allergies, Adverse Reactions, Alerts [...]
--- OUTSIDE RECORDS SUMMARY | 2022-06-11 06:17 | XMS_ITS | Continuity of Care Document ---
:1970 Author Organization [facility] Address [address] [place] [address]- Care Team Providers Name Role Phone Ger BYRNE, Shaheed Ellis Primary Care Physician Encounter [facility] Date(s): 11/16/20 - 01/03/21 [facility] [address] [place] [address]- Attending Physician: May Gore NP Allergies, Adverse [...] 04/02/20 15:21:00 EDT, Route to Pharmacy Electronically, [facility] #[id number], 191, cm, 04/02/20 14:26:00 EDT, Height, 121, [...]
--- OUTSIDE RECORDS SUMMARY | 2022-06-11 06:17 | XMS_ITS | Continuity of Care Document ---
:1970 Author Organization [facility] Address [address] [place] [address]- Care Team Providers Name Role Phone Shaheed Cyr MD Primary Care Physician Encounter [facility] Date(s): 07/31/20 - 09/07/[address] [address] Attending Physician: Michael Sanchez MD Admitting Physician: [...] Refills, Soft Stop, 01/20/20 13:56:00 EDT, Tablet, [facility] #[id number], 193, cm, 01/20/20 12:58:00 EDT, Height, 118.7, [...] 04/02/20 15:21:00 EDT, Route to Pharmacy Electronically, [facility] #[id number], 191, cm, 04/02/20 14:26:00 EDT, Height, 121, [...]
--- OUTSIDE RECORDS SUMMARY | 2022-06-11 06:17 | XMS_ITS | Continuity of Care Document ---
:1970 Author Organization [facility] Address [address] [place] [address]- Care Team Providers Name Role Phone Shaheed Cyr MD Primary Care Physician Encounter [facility] Date(s): 07/05/20 - 08/04/20 [facility] [place] [address] [place], [place] [address] Attending Physician: Melany Lambert Admitting Physician: Melany [...] Refills, Soft Stop, 01/20/20 13:56:00 EDT, Tablet, [facility] #[id number], 193, cm, 01/20/20 12:58:00 EDT, Height, 118.7, [...] 04/02/20 15:21:00 EDT, Route to Pharmacy Electronically, [facility] #[id number], 191, cm, 04/02/20 14:26:00 EDT, Height, 121, [...] Daily, # 45 Gm, 0 Refills, Maintenance, 10/25/20 14:36:00 EDT, Ointment Start Date: 04/02/20 Status: OrderedNuLYTELY with Flavor Packs oral powder for reconstitution 240 mL, By Mouth, Every 15 minutes, # 4,000 mL, 0 Refills, Maintenance, 07/11/20 14:16:00 [facility], [facility] #[id number], Partial fill upon patient request if the [...]
--- OUTSIDE RECORDS SUMMARY | 2022-06-11 06:17 | XMS_ITS | Continuity of Care Document ---
:1970 Author Organization [facility] Address [address] [place] [address]- Care Team Providers Name Role Phone Ger BYRNE, Shaheed Ellis Primary Care Physician Encounter [facility] Date(s): 02/26/22 - 04/03/[address] [address] Attending Physician: Dominick Garduno MD Admitting Physician: Dominick Garduno MD Referring Physician: Dominick Garduno MD Allergies, Adverse Reactions, [...] 02/06/22 11:24:00 EDT, [id number], Partial fill upon patient request if the [...] # 180 tablet, 3 Refills, Physician Stop 07/20/22 9:40:00 EST, 07/25/21 9:40:00 EST, [facility] #[id number], 188, cm, 07/06/21 16:05:00 EST, Height, 115, kg, 01/22/21 10:32:00 EDT, Dry Weight Start Date: 07/25/21 Stop Date: 07/20/22 Status: OrderedEliquis 5 mg oral tablet 1 tablet, By Mouth, 2 times a day, for 90 days, # 180 tablet, 3 Refills, Physician Stop 02/02/23 14:15:00 EDT, 02/07/22 14:15:00 EDT, [facility] #[id number], 188, cm, 07/06/21 16:05:00 EST, Height, 115, [...] 14:36:00 EDT, Ointment Start Date: 04/02/20 Status: OrderedTiadylt ER 180 mg/24 hours oral capsule, extended release 1 capsule, By Mouth, Daily, for 90 days, # 90 capsule, 3 Refills, Physician Stop 02/24/23 9:39:00 EDT, 03/01/22 9:39:00 EDT, [facility] #[id number], 188, cm, 07/06/21 16:05:00 EST, Height, 115, [...] on: 01/22/17 Sex Patient Care team information PersonnelName: Shaheed Cyr MD Address: Address: [address] [place] [address] [address] Shaheed yCr III, [place] [address]
--- NOTE | 2022-06-11 06:29 | ED.SKABFB ---
HPI - Skin/Abscess/Foreign Bdy General Chief complaint: Skin/Abscess/Foreign Body Stated complaint: growth on back of neck Time Seen by Provider: 06/11/22 06:28 Source: patient Mode of arrival: ambulatory Limitations: no limitations History of Present Illness complaint: abscess/boil Onset (ago): day(s) (3) Tetanus up to date: yes Location: back Severity: moderate Quality: aching, dull and constant Pain Consistency: constant Relieving factors: none Exacerbating factors: palpation and movement Context: other (hx of boils in the past) Associated symptoms: denies other symptoms Treatments prior to arrival: none Related Data Previous Rx's Medication Instructions Recorded doxycycline hyclate 100 mg capsule 100 mg PO BID 7 days #14 caps 06/11/22 Allergies Allergy/AdvReac Type Severity Reaction Status Date / Time thiopental [SODIUM PENTOTHAL] Allergy Severe BECOMES Unverified 02/24/20 15:04 VIOLENT morphine Allergy Unknown Verified 12/16/18 00:00 zolpidem [Ambien] Allergy Unknown Verified 12/16/18 00:00 Sodium pent Allergy Unknown Uncoded 12/16/18 00:00 Review of Systems Review of Systems: Constitutional : No Fever, No Chills ENT/Mouth : No sore throat, No Rhinorrhea Eyes: No Eye Pain, No Swelling, No Redness Cardiovascular : No Chest Pain, No SOB Respiratory : No Cough, No Sputum Gastrointestinal : No Nausea, No Vomiting, No Diarrhea, No abdominal Pain Genitourinary : No Dysuria, No Hematuria Musculoskeletal : No joint pain, No Myalgias, No Joint Swelling Skin : pos Skin Lesions, positive skin rash Neuro : No Weakness, No Numbness, No Headache Psych : No Anxiety, No Depression Heme/Lymph: No Bruising, No Bleeding,No Lymphadenopathy Endocrine : No Polyuria, No Polydipsia All other systems reviewed and are negative PMFSH Social History Social History Alcohol intake: current Alcohol intake frequency: a few times a week Smoked in Last 30 Days: Yes Use of substances other than those prescribed or required for medical reasons: No Advance Directives: No Physical Exam Vital Signs: Vital Signs: Last Vital Signs Temp 98.6 F 06/11/22 06:00 Pulse 81 06/11/22 06:00 Resp 17 06/11/22 06:00 BP 127/73 06/11/22 06:00 Pulse Ox 96 06/11/22 06:00 O2 Del Method 06/11/22 06:00 BMI result Body Mass Index 29.9 Appearance: Alert. Oriented X3. No acute distress. Eyes: Pupils equal, round and reactive to light. ENT: Pharynx normal. Neck: Normal inspection. Neck supple. CVS: Normal heart rate and rhythm. Pulses normal. Respiratory: No respiratory distress. Breath sounds normal. Abdomen: Soft and nontender. Skin: Skin warm and dry. Normal skin color. Normal skin turgor. back there is a 4cm round fluctuant abscess with overlying erythema no extending erythema Extremities: No lower extremity edema. No calf ttp Neuro: Oriented X 3. No motor deficit. No sensory deficit. Medications Administered Discontinued Medications Generic Name Dose Route Start Last Admin Trade Name Freq PRN Reason Stop Dose Admin Lidocaine HCl 20 ml 06/11/22 06:31 06/11/22 06:36 Lidocaine Hcl 1 % 20 Ml Vial SUBCUT 06/11/22 06:32 20 ml ONCE ONE Administration Medical Decision Making Medical Decision Making MDM Narrative: 51 yo male with hx of DM, afib on eliquis hx of boils but no MRSA here with boil on back for 3+ days but no associated feves, n/v - at this time he did not take his DOAC will I+D the area and start on doxy given redness overlying area and his DM status. Differential Diagnosis abscess, cellulitis, MRSA Tests considered The following testing was considered but not selected: CBC but given normal VS and no systemic signs declined Prescription Management I considered prescription management with: Antibiotic (started on doxycycline for cellulitis) Chronic Conditions Patient?s care impacted by: Diabetes given abscess and DM started on antibiotics Procedures Abscess I/D Site: back Local Anesthetic: lidocaine 1% Amount of anesthesia used (mL): 5 Technique: incised with blade Amount of fluid expressed (mL): 5 Sent for culture/gram staining?: No Irrigation: Yes Packing used?: none Discharge Plan Discharge Clinical Impression: Abscess of skin or subcutaneous tissue Patient Disposition: Home, Self-Care Instructions: Abscess (ED), Incision and Drainage (ED) Additional Instructions: return to ED for any worsening symptoms or concerns monitor for spreading of redness, increased swelling, fevers, vomiting. okay to shower but wait 12 hours area will drain. apply pressure if bleeding take antibiotic with food and full glass of water stay upright for 45 minutes Prescriptions: New doxycycline hyclate 100 mg capsule 100 mg PO BID 7 Days Qty: 14 0RF Stand Alone Forms: Work/School Release Interventions: ED Discharge Assessment Last Done: 06/11/22 06:55 Discharge Date/Time: 06/11/22 06:57
[2022-06-11] MEDS: Lidocaine HCl 1 % 20 ML VIAL SUBCUT (06:36)
== END 2022-06-11 06:57 | disposition home or self-care (01) ==
PROVIDERS: Emergency Provider Emergency Medicine; PCP Internal Medicine Medical Oncology
DX: L02.212 Cutaneous abscess of back [any part, except buttock and flank] (principal); E11.9 Type 2 diabetes mellitus without complications; I48.91 Unspecified atrial fibrillation; Z79.01 Long term (current) use of anticoagulants
CPT/HCPCS: 10060; 99284

== ENCOUNTER 2023-03-24 14:39 | Outpatient (REF) | payer MEDICARE, MEDICAID, SELFPAY ==
--- NOTE | ~2023-03-24 | XR_ITS ---
EXAMINATION: XR WRIST, LEFT CLINICAL INFORMATION: Pain COMPARISON: None available. TECHNIQUE: PA, lateral, and oblique views of the left wrist. FINDINGS: The bones and soft tissues are normal. No fracture. Alignment is anatomic with normal joint spaces. No erosions or abnormal soft tissue calcifications. XR/XR wrist LT min 3V IMPRESSION: Normal left wrist.
[2023-03-24 15:38] LABS: MANUAL DIFF FLAG NO
[2023-03-24 15:51] LABS: Appearance Urine Clear; Color Urine Yellow; Glucose Urine UA >=1000 mg/dL (Negative); Leukocyte Esterase Urine Negative (Negative); Nitrite Urine Negative (Negative); PH 6.5 (5.0-9.0); Specific Gravity - Urine >= 1.030 (1.005-1.025); UMIC TRIGGER UA YES; Urine Blood Negative (Negative); Urine Ketones Trace mg/dL (Negative); Urine Protein Negative (Neg-Trace)
[2023-03-24 15:55] LABS: Bacteria Urine None Seen (None Seen); Hyaline Casts Urine 0-2 /LPF (0-2); RBC Urine 0-2 /HPF (0-2); Squamous Epithelial Cell Urine 0-2 /HPF (0-2); WBC Urine 0-5 /HPF (0-5)
[2023-03-24 17:01] LABS: Basophils Percent Auto 0.4 % (0-2); Eosinophils Absolute Auto 0.5 X10*3/uL (0.0-0.4); Eosinophils Percent Auto 4.9 % (0-4); Hematocrit 39.4 % (42.0-52.0); Hemoglobin 12.9 g/dl (14.0-18.0); Imm Gran Abs Auto 0.18 X10*3/uL (0.00-0.03); Imm Gran Pct Auto 1.8 % (0.0-0.4); Lymphocytes Absolute Auto 1.5 X10*3/uL (1.2-4.9); Lymphocytes Percent Auto 15.1 % (20-40); Mean Corpuscular HGB Conc 32.7 g/dl (31.0-36.0); Mean Corpuscular Hemoglobin 30.6 pg (27.0-33.0); Mean Corpuscular Volume 93.6 fL (80.0-98.0); Mean Platelet Volume 11.2 fL (9.4-12.4); Monocytes Absolute Auto 0.9 X10*3/uL (0.1-1.2); Monocytes Percent Auto 8.8 % (2-11); Neutrophils Absolute Auto 6.8 x10*3/uL (2.0-8.3); Platelet Count 274 X10*3/uL (160-400); Red Blood Count 4.21 X10*6/uL (4.60-5.80); Red Cell Distribution Width 13.3 % (11.0-16.0); White Blood Count 9.8 X10*3/uL (4.8-10.8)
[2023-03-24 17:24] LABS: Estimated Average Glucose 240 mg/dL
[2023-03-24 17:51] LABS: Alanine Aminotransferase 26 U/L (0-40); Albumin Level 3.6 g/dL (3.5-5.0); Alkaline Phosphatase 103 U/L (39-117); Anion Gap 19 (12-20); Aspartate Amino Transferase 15 U/L (5-37); Bilirubin Total 0.4 mg/dL (0.0-1.0); Blood Urea Nitrogen 20 mg/dL (9-16); Calcium 9.9 mg/dL (8.4-10.2); Carbon Dioxide 23 mmol/L (22-29); Chloride 93 mmol/L (96-108); Estimated Glomerular Filt Rate > 60; Glucose Random 312 mg/dL (60-115); Potassium 4.8 mmol/L (3.3-5.1); Sodium 130 mmol/L (135-145); Total Protein 7.6 g/dL (6.5-8.0)
== END 2023-03-24 14:40 | disposition home or self-care (01) ==
LOC: HO.LAB 14:39
PROVIDERS: PCP Internal Medicine Medical Oncology; Visit Provider Internal Medicine Medical Oncology
DX: A41.9 Sepsis, unspecified organism (principal); N39.0 Urinary tract infection, site not specified; R31.9 Hematuria, unspecified; M25.532 Pain in left wrist; E11.69 Type 2 diabetes mellitus with other specified complication
CPT/HCPCS: 36415; 73110; 80053; 81001; 83036; 85025; 87040; 87086

== ENCOUNTER 2023-07-02 13:55 | Outpatient (REF) | payer MEDICARE, MEDICAID, SELFPAY | END 2023-07-02 13:56 | disposition home or self-care (01) | LOC: HO.HOSX 13:55 | PROVIDERS: Visit Provider Orthopaedic Surgery | DX: Z13.89 Encounter for screening for other disorder (principal) ==

== ENCOUNTER 2023-07-08 08:22 | Outpatient (AMB) | payer MEDICARE, MEDICAID, SELFPAY ==
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
[2023-07-08 08:36] VITALS: BMI 29.7
== END 2023-07-08 08:53 | disposition home or self-care (01) ==
PROVIDERS: PCP Internal Medicine Medical Oncology; Visit Provider Orthopaedic Surgery
DX: M19.012 Primary osteoarthritis, left shoulder (principal)
CPT/HCPCS: 99202

== ENCOUNTER 2023-07-08 12:10 | Outpatient (REF) | payer MEDICARE, MEDICAID, SELFPAY ==
--- NOTE | ~2023-07-08 | XR_ITS ---
EXAMINATION: XR SHOULDER, LEFT CLINICAL INFORMATION: Pain. COMPARISON: Radiographs dated 04/14/2017. TECHNIQUE: AP neutral and scapular Y views of the left shoulder are submitted. FINDINGS: There is bony demineralization. The glenohumeral joint is intact and shows moderately severe osteoarthritic change, with joint space narrowing and a large inferior peripheral osteophyte. The acromioclavicular and coracoclavicular intervals are normal. No fracture or dislocation is seen. No soft tissue calcification or foreign body is seen. There is no left pneumothorax. A spinal stimulator lead is noted, projecting over the mid thoracic spine. An electronic device projects over the left upper chest. XR/XR shoulder LT min 2V IMPRESSION: 1. There is moderately severe osteoarthritic change of the left glenohumeral joint. 2. No acute fracture or dislocation is seen.
== END 2023-07-08 12:11 | disposition home or self-care (01) ==
LOC: HO.HOSX 12:10
PROVIDERS: Visit Provider Orthopaedic Surgery
DX: M25.512 Pain in left shoulder (principal); M19.012 Primary osteoarthritis, left shoulder
CPT/HCPCS: 73030; 99202

== ENCOUNTER 2024-02-02 13:07 | Outpatient (REF) | payer MEDICARE, MEDICAID, SELFPAY | END 2024-02-02 13:08 | disposition home or self-care (01) | LOC: HO.LNP 13:07 | PROVIDERS: Visit Provider Internal Medicine Medical Oncology | DX: B07.0 Plantar wart (principal); E11.9 Type 2 diabetes mellitus without complications; L08.9 Local infection of the skin and subcutaneous tissue, unspecified | CPT/HCPCS: 87070; 87077; 87186; 87205 ==

== ENCOUNTER 2024-06-13 23:12 | Emergency (ER) | payer MEDICARE, MEDICAID, SELFPAY ==
[2024-06-13 23:25] VITALS: BP 124/84; PULSE 93; RESP 18; TEMP 36.8; O2SAT 96; BMI 29.7
[2024-06-13 23:59] LABS: Basophils Absolute Auto 0.1 X10*3/uL (0.0-0.2); Basophils Percent Auto 0.4 % (0-2); Eosinophils Absolute Auto 0.2 X10*3/uL (0.0-0.4); Eosinophils Percent Auto 1.4 % (0-4); Hematocrit 34.7 % (42.0-52.0); Hemoglobin 12.1 g/dl (14.0-18.0); Imm Gran Abs Auto 0.05 X10*3/uL (0.00-0.03); Imm Gran Pct Auto 0.4 % (0.0-0.4); Lymphocytes Absolute Auto 1.3 X10*3/uL (1.2-4.9); MANUAL DIFF FLAG SCAN; Mean Corpuscular HGB Conc 34.9 g/dl (31.0-36.0); Mean Corpuscular Hemoglobin 31.3 pg (27.0-33.0); Mean Corpuscular Volume 89.9 fL (80.0-98.0); Mean Platelet Volume 9.9 fL (9.4-12.4); Monocytes Absolute Auto 1.6 X10*3/uL (0.1-1.2); Monocytes Percent Auto 12.8 % (2-11); Neutrophils Absolute Auto 9.5 x10*3/uL (2.0-8.3); Platelet Count 244 X10*3/uL (160-400); Red Blood Count 3.86 X10*6/uL (4.60-5.80); Red Cell Distribution Width 12.8 % (11.0-16.0); SCAN SMEAR FLAG 1; White Blood Count 12.6 X10*3/uL (4.8-10.8)
[2024-06-14 00:06] LABS: Alanine Aminotransferase 24 U/L (0-40); Albumin Level 3.7 g/dL (3.5-5.0); Alkaline Phosphatase 95 U/L (39-117); Anion Gap 15 (12-20); Aspartate Amino Transferase 32 U/L (5-37); Bilirubin Total 0.5 mg/dL (0.0-1.0); Blood Urea Nitrogen 22 mg/dL (9-16); Calcium 8.8 mg/dL (8.4-10.2); Carbon Dioxide 23 mmol/L (22-29); Chloride 102 mmol/L (96-108); Creatinine Clr Calc Pharmacy 135.1; Estimated Glomerular Filt Rate > 60; Glucose Random 123 mg/dL (60-115); Potassium 4.4 mmol/L (3.3-5.1); Sodium 136 mmol/L (135-145); Total Protein 6.9 g/dL (6.5-8.0)
[2024-06-14 00:21] LABS: SLIDE REVIEW VERIFIED
== END 2024-06-14 01:57 | disposition left against medical advice (07) ==
PROVIDERS: Emergency Provider Internal Medicine; PCP Internal Medicine Medical Oncology
DX: K59.00 Constipation, unspecified (principal); Z79.899 Other long term (current) drug therapy
CPT/HCPCS: 36415; 80053; 85025; 99281

== ENCOUNTER 2024-07-16 13:43 | Inpatient (IN) | payer MEDICARE, MEDICAID, SELFPAY ==
--- NOTE | ~2024-07-16 | XR_ITS ---
EXAMINATION: XR FOOT 3 OR MORE VIEWS LEFT HISTORY: infection COMPARISON: There are no prior studies available for comparison. FINDINGS: Three views of the left foot are submitted. There is demineralization of the proximal phalanx of the 5th toe. There is a healing fracture of the proximal phalanx of the 5th toe with callus formation noted. No additional fracture is seen. The joint spaces are preserved. There is a soft tissue defect in the region of the fracture of the 5th proximal phalanx. XR/XR foot LT min 3V IMPRESSION: Soft tissue defect overlying the 5th proximal phalanx. There is a healing fracture of the proximal phalanx of the 5th toe, which may represent a pathologic fracture related to osteomyelitis if there is no history of trauma. Clinical correlation is recommended. Electronically signed by: Shaheed Hill MD 07/16/2024 03:09 PM [facility]
--- NOTE | ~2024-07-16 | XR_ITS ---
CLINICAL HISTORY: PICC Line placement 1 view chest x-ray Comparison: None Findings: Right arm PICC is present, tip of which is in the mid SVC. Spinal stimulating leads are present. No consolidation or effusion. Normal size heart. No acute fracture. IMPRESSION: 1. No acute findings. This document has been electronically signed by: Khushbu Brock MD on 07/19/2024 17:55:37
[2024-07-16 13:49] VITALS: BP 110/72; PULSE 85; RESP 18; TEMP 36.7; O2SAT 99; BMI 31.2
--- NOTE | 2024-07-16 13:57 | ED_ITS ---
HPI - Wound/Laceration General Chief Complaint: Wound/Laceration Stated Complaint: L Foot Infection Sent by Dr Time Seen by Provider: 07/16/24 17:18 Source: patient and family (patient's ) Mode of arrival: wheelchair Limitations: no limitations History of Present Illness ED Provider: Ibis Boucher PA-C HPI narrative: Patient is a 53 year old assigned male at with a history of DM and previous tobacco use presenting to the emergency department today with a worsening left foot wound. Patient states that he has been having issues with his left foot wound for weeks and was recently admitted at [facility] but left against medical advice because he did not like how he was being treated. Patient states that he was seen by podiatry today who did an extensive debridement but recommended he come to the hospital for a surgeon to debride it further. Patient states that the pain is radiating up and into his ankle. Patient denies any dizziness, lightheadedness, abdominal pain, nausea, vomiting, fever, chills, blurry vision, double vision, loss of vision, chest pain, difficulty breathing, shortness of breath, back pain, night sweats, pain with urination, increased urinary frequency, increased urinary urgency, blood in his urine or stool, syncope or a near syncopal episode, recent trauma or falls, bowel incontinence, bladder incontinence, or any other complaints at this time. Related Data Home Medications ?Medication ?Instructions ?Recorded ?Confirmed apixaban 5 mg tablet (Eliquis) 5 mg PO BID 07/08/23 atenolol 50 mg tablet 50 mg PO DAILY 07/08/23 betamethasone dipropionate 0.05 % topical 07/08/23 topical ointment blood sugar diagnostic (FreeStyle #10 ea 07/08/23 Lite Strips) insulin glargine 100 unit/mL (3 35 unit subcut DAILY 07/08/23 mL) subcutaneous pen (Lantus Solostar U-100 Insulin) metformin 500 mg tablet 1,000 mg PO BID 07/08/23 mupirocin 2 % topical ointment topical 07/08/23 verapamil 180 mg 24 hr 180 mg PO DAILY 07/08/23 capsule,extended release Previous Rx's ?Medication ?Instructions ?Recorded doxycycline hyclate 100 mg capsule 100 mg PO BID 7 days #14 caps 06/11/22 Allergies Allergy/AdvReac Type Severity Reaction Status Date / Time thiopental [SODIUM PENTOTHAL] Allergy Severe BECOMES Verified 07/16/24 13:56 VIOLENT morphine Allergy Unknown Unknown Verified 07/16/24 13:56 Sodium pent Allergy Unknown Unknown Uncoded 06/13/24 23:31 Review of Systems 2 Constitutional: Constitutional: Reports no additional constitutional complaints, Denies chills, Denies fever(s) and Denies night sweats Eyes: Eyes: Reports no additional eye complaints, Denies blurry vision, Denies change in vision, Denies diplopia, Denies eye discharge, Denies loss of vision and Denies eye pain ENT: Denies dizziness Cardiovascular: Cardiovascular: Reports no additional cardiovascular complaints, Denies chest pain, Denies lightheadedness, Denies Loss of Consciousness and Denies dyspnea Respiratory: Respiratory: Reports no additional respiratory complaints and Denies dyspnea Gastrointestinal: Gastrointestinal: Reports no additional gastrointestinal complaints, Denies abdominal pain, Denies melena, Denies hematochezia, Denies change in bowel habits and Denies change in stool character Genitourinary: Genitourinary: Reports no additional male genitourinary complaints, Denies hematuria, Denies oliguria, Denies difficulty urinating, Denies dysuria, Denies urinary frequency, Denies urinary hesitancy, Denies urinary incontinence and Denies urinary urgency Musculoskeletal: Musculoskeletal: Reports no additional musculoskeletal complaints, Denies numbness and Denies tingling Comments: left foot pain radiating into left ankle worsening left foot wound Neurologic: Denies dizziness, Denies loss of vision, Denies numbness and Denies tingling Psychiatric: Psychiatric: Reports no additional psychiatric complaints Endocrine: Endocrine: Reports no additional endocrine complaints Hematologic/Lymphatic: Hematologic/Lymphatic: Reports no additional hematologic/lymphatic complaints Allergic/Immunologic: Allergic/Immunologic: Reports no additional allergic/immunologic complaints PMFSH Past Medical History Attestation statement: The following information was validated with the patient. (all information validated with the patient's ) Source: old records reviewed, obtained from family (patient's provided additional history and confirmed the history provided by the patient) and nursing notes reviewed Social History Social History Alcohol intake: current Alcohol intake frequency: a few times a week Patient Tobacco Use Status: Former Tobacco user Advance Directives: No Advance Directives Information Provided: Yes Physical Exam 2 Vital Signs: Vital Signs: Last Vital Signs Temp 98.1 F 07/16/24 16:59 Pulse 84 07/16/24 16:59 Resp 18 07/16/24 16:59 BP 113/81 07/16/24 16:59 Pulse Ox 93 07/16/24 16:59 O2 Del Method Room Air 07/16/24 16:59 BMI result Body Mass Index 31.2 Const: General: cooperative, no acute distress, alert and awake Nutritional Appearance: well nourished Orientation/consciousness: patient oriented x3 Limitations: no limitations HEENT: Head: Yes normal to inspection and Yes atraumatic Ears: hearing grossly normal bilaterally and external ears normal General nose exam: Normal external nose present, no nasal discharge noted and no epistaxis Face and sinus: Yes normal facial exam, No abrasion and No laceration Mouth: Normal oral and palatal mucosa present, no drooling and no muffled voice Eyes: General: appearance normal, both eyes and all related structures P eriorbital: periorbital findings normal Eyelids: Yes eyelids normal C onjunctivae: conjunctivae normal Pupils: Equal, round and reactive pupils present EOM: EOMs intact bilaterally Neck: Neck: Yes normal visual inspection, Yes full ROM and Yes no lymphadenopathy Chest: Chest palpation & inspection: normal inspection of the chest Resp: Effort & Inspection: normal respiratory effort and able to speak in complete sentences GI: Inspection: Yes normal to inspection Neuro: General: patient oriented x3, moves all extremities and CN's II-XI intact bilaterally Cranial nerves: Yes Equal, round and reactive pupils present Cognition (Neuro): normal cognition Extrem: Other: General: Yes full ROM and Yes capillary refill normal Psych: Appearance: grossly normal Mental Status: mental status grossly normal Affect: normal affect Attitude: cooperative Thought process: N ormal thought process present Thought content: Normal thought content present Insight: Good insight present (Psych) Course Course Course Narrative: This is a rapid medical exam performed by Alisha Holm PA-C. The patient is a 53-year-old male with a history of diabetes, hypertension, chronic ongoing left diabetic foot ulcer, presents with worsening pain and swelling of the left foot. Patient states he has been having progressive symptoms for weeks. His primary care presents to triage with the patient, with concerns for sepsis and osteomyelitis. I took pictures of the foot to add to his chart. We will be screening basic labs, inflammatory markers, blood cultures and lactic. Having said that, the patient is stable and we will return to the waiting room pending his full medical assessment. Medications Administered Generic Name Dose Route Start Last Admin Trade Name Freq PRN Reason Stop Dose Admin Magnesium Sulfate 2 gm in 50 mls @ 25 mls/hr 07/16/24 17:28 07/16/24 18:13 Magnesium Sulfate/H2o IV 07/16/24 19:27 25 mls/hr ONCE ONE Administration Vancomycin HCl 2,000 mg in 500 mls @ 250 mls/hr 07/16/24 17:45 07/16/24 18:13 Vancomycin/Ns IV 07/16/24 19:44 250 mls/hr ONCE ONE Administration Discontinued Medications Generic Name Dose Route Start Last Admin Trade Name Freq PRN Reason Stop Dose Admin Fentanyl 50 mcg 07/16/24 17:38 07/16/24 18:10 Fentanyl Citrate/Pf 100 Mcg/2 Ml Vial IVPUSH 07/16/24 17:39 50 mcg ONCE ONE Administration Protocol Piperacillin Sod/Tazobactam 50 mls @ 100 mls/hr 07/16/24 17:19 07/16/24 18:13 Sod 3.375 gm/ Sodium Chloride IV 07/16/24 17:48 100 mls/hr ONCE ONE Administration Lidocaine HCl 10 ml 07/16/24 18:13 07/16/24 18:17 Lidocaine Hcl 1 % Mpf 5 Ml Vial SUBCUT 07/16/24 18:14 10 ml ONCE ONE Administration Ondansetron HCl 4 mg 07/16/24 17:37 07/16/24 18:11 Ondansetron Hcl 4 Mg/2 Ml Vial IVPUSH 07/16/24 17:38 4 mg ONCE ONE Administration Medical Decision Making Medical Decision Making MDM Narrative: Patient is a 53 year old assigned male at with a history of DM and previous tobacco use presenting to the emergency department today with a worsening left foot wound. Patient's physical exam was as noted in the physical exam portion of this note. Patient's blood work showed an elevated ESR of 72, CRP of 12.24, and decreased mag of 1.2. Patient's left foot x-ray showed evidence of a healing left 5th metatarsal fracture that could be evidence of osteomyelitis. Given the patient's examination and lab values, I believe he does have osteomyelitis. I spoke with the general surgeon, Dr. Jones who evaluated the patient and agreed to admission. Patient was given IV Zosyn and Vancomycin. Patient's clinical presentation is not consistent with sepsis (@1815). I explained my physical exam findings as well as all test results to the patient and the patient's . I answered all questions asked by the patient and the patient's . Patient and the patient's verbalized agreement and understanding with this treatment plan and admission. Differential Diagnosis Differential Diagnoses: The differential diagnosis associated with the presentation includes Left foot osteomyelitis Admission/Observation Consideration of admission/observation: Escalation of care including admission/observation considered Patient admitted as noted in the MDM Rationale portion of this note. Consult Healthcare Provider Management of the patient was discussed with: Replenishment Associate (spoke to the surgical team as noted in the MDM Rationale portion of this note.) Lab Data [facility] Lab Attestation statement: I reviewed the patient's lab results. My interpretation of these results are in the MDM Rationale portion of this note. 07/16/24 14:14 07/16/24 14:13 Labs: Lab Results 07/16/24 07/16/24 07/16/24 Range/Units 13:58 14:13 14:14 WBC 8.2 (4.8-10.8) X10*3/uL RBC 3.67 L (4.60-5.80) X10*6/uL Hgb 11.1 L (14.0-18.0) g/dl Hct 32.3 L (42.0-52.0) % MCV 88.0 (80.0-98.0) fL MCH 30.2 (27.0-33.0) pg MCHC 34.4 (31.0-36.0) g/dl RDW 13.3 (11.0-16.0) % Plt Count 185 (160-400) X10*3/uL MPV 10.4 (9.4-12.4) fL Immature Gran % (Auto) 0.9 H (0.0-0.4) % Neut % (Auto) 55.1 (45-73) % Lymph % (Auto) 24.9 (20-40) % [place] % (Auto) 17.4 H (2-11) % Eos % (Auto) 1.3 (0-4) % Baso % (Auto) 0.4 (0-2) % Lymph # (Auto) 2.0 (1.2-4.9) X10*3/uL [place] # (Auto) 1.4 H (0.1-1.2) X10*3/uL Eos # (Auto) 0.1 (0.0-0.4) X10*3/uL Baso # (Auto) 0.0 (0.0-0.2) X10*3/uL Abs Immat Gran (auto) 0.07 H (0.00-0.03) X10*3/uL Absolute Neuts (auto) 4.5 (2.0-8.3) x10*3/uL Absolute Nucleated RBC 0.000 (0.0-0.012) X10*3/uL Nucleated RBC % (auto) 0.0 (0.0-0.2) /100WBC Smear Tech's Comments VERIFIED ESR 72 H (0-15) MM/HR PT 12.3 (10.9-12.4) SEC INR 1.1 (0.9-1.1) Sodium 134 L (135-145) mmol/L Potassium 3.8 (3.3-5.1) mmol/L Chloride 101 (96-108) mmol/L Carbon Dioxide 21 L (22-29) mmol/L Anion Gap 16 (12-20) BUN 10 (9-16) mg/dL Creatinine 0.86 (0.5-1.4) mg/dL Estim Creat Clear Calc 131.8 Estimated GFR > 60 POC Glucose 108 (60-115) mg/dL Random Glucose 105 (60-115) mg/dL Lactic Acid 1.8 (0.5-2.0) mmol/L Calcium 9.1 (8.4-10.2) mg/dL Magnesium 1.2 L* (1.6-2.6) mg/dL C-Reactive Protein 12.24 H (< or = 0.50) mg/dL Independent Interpretation I performed an independent interpretation of an: Plain X-Ray Interpretation: My interpretation is in agreement with the radiologist's impression of this imaging study. L EXAMINATION: XR FOOT 3 OR MORE VIEWS LEFT HISTORY: infection COMPARISON: There are no prior studies available for comparison. FINDINGS: Three views of the left foot are submitted. There is demineralization of the proximal phalanx of the 5th toe. There is a healing fracture of the proximal phalanx of the 5th toe with callus formation noted. No additional fracture is seen. The joint spaces are preserved. There is a soft tissue defect in the region of the fracture of the 5th proximal phalanx. XR/XR foot LT min 3V IMPRESSION: Soft tissue defect overlying the 5th proximal phalanx. There is a healing fracture of the proximal phalanx of the 5th toe, which may represent a pathologic fracture related to osteomyelitis if there is no history of trauma. Clinical correlation is recommended. Electronically signed by: Shaheed Hill MD 07/16/2024 03:09 PM EST Dictated By: Shaheed Hill MD Signed By: Electronically signed by Shaheed Hill MD 07/16/24 1509 Radiology Impression Discussion of test interpretation with radiology: I have reviewed the radiologist's reading. Independent Historian Clinical information obtained from an independent historian. History obtained from or confirmed by: Spouse (patient's provided additional history and confirmed the history provided by the patient.) Chronic Conditions Patient?s care impacted by: Diabetes Critical Care Time Critical Care Time Critical Care Time: Yes Total Critical Care Time: 44 Attestation: I spent 44 minutes of Critical Care Time with this patient. This does not include time spent on separately reported billable procedures. Discharge Plan Discharge Clinical Impression: Foot osteomyelitis, left Patient Disposition: Admitted As Inpatient Prescriptions: No Action doxycycline hyclate 100 mg capsule 100 mg PO BID 7 Days Qty: 14 0RF atenolol 50 mg tablet 50 mg PO DAILY verapamil 180 mg capsule,ext rel. pellets 24 hr 180 mg PO DAILY insulin glargine [Lantus Solostar U-100 Insulin] 100 unit/mL (3 mL) insulin pen 35 unit subcut DAILY metformin 500 mg tablet 1,000 mg PO BID mupirocin 2 % ointment topical (DME) FreeStyle Lite Strips Strip See Rx Instructions .ROUTE BID Qty: 10 Rx Instructions: As directed betamethasone dipropionate 0.05 % ointment topical Eliquis 5 mg tablet 5 mg PO BID Print Language: Turkmen
[2024-07-16 14:11] LABS: Glucose, Whole Blood 108 mg/dL (60-115)
[2024-07-16 14:36] LABS: Basophils Percent Auto 0.4 % (0-2); Eosinophils Absolute Auto 0.1 X10*3/uL (0.0-0.4); Eosinophils Percent Auto 1.3 % (0-4); Hematocrit 32.3 % (42.0-52.0); Hemoglobin 11.1 g/dl (14.0-18.0); Imm Gran Abs Auto 0.07 X10*3/uL (0.00-0.03); Imm Gran Pct Auto 0.9 % (0.0-0.4); Lymphocytes Percent Auto 24.9 % (20-40); MANUAL DIFF FLAG SCAN; Mean Corpuscular HGB Conc 34.4 g/dl (31.0-36.0); Mean Corpuscular Hemoglobin 30.2 pg (27.0-33.0); Mean Platelet Volume 10.4 fL (9.4-12.4); Monocytes Absolute Auto 1.4 X10*3/uL (0.1-1.2); Monocytes Percent Auto 17.4 % (2-11); Neutrophils Absolute Auto 4.5 x10*3/uL (2.0-8.3); Neutrophils Percent Auto 55.1 % (45-73); Platelet Count 185 X10*3/uL (160-400); Red Blood Count 3.67 X10*6/uL (4.60-5.80); Red Cell Distribution Width 13.3 % (11.0-16.0); SCAN SMEAR FLAG 1; White Blood Count 8.2 X10*3/uL (4.8-10.8)
[2024-07-16 14:45] LABS: INTERNATIONAL NORM RATIO 1.1 (0.9-1.1); Prothrombin Time 12.3 SEC (10.9-12.4)
[2024-07-16 14:55] LABS: Lactic Acid 1.8 mmol/L (0.5-2.0)
[2024-07-16 14:55] LABS: SLIDE REVIEW VERIFIED
[2024-07-16 15:03] LABS: Anion Gap 16 (12-20); Blood Urea Nitrogen 10 mg/dL (9-16); C Reactive Protein 12.24 mg/dL (< or = 0.50); Calcium 9.1 mg/dL (8.4-10.2); Carbon Dioxide 21 mmol/L (22-29); Chloride 101 mmol/L (96-108); Creatinine Clr Calc Pharmacy 131.8; Estimated Glomerular Filt Rate > 60; Glucose Random 105 mg/dL (60-115); Magnesium 1.2 mg/dL (1.6-2.6); Potassium 3.8 mmol/L (3.3-5.1); Sodium 134 mmol/L (135-145)
[2024-07-16 16:28] LABS: Erythrocyte Sedimentation Rate 72 MM/HR (0-15)
[2024-07-16 16:59] VITALS: BP 113/81; PULSE 84; RESP 18; TEMP 36.7; O2SAT 93
--- NOTE | 2024-07-16 16:59 | MHC.EDTECH ---
at this time this tech changed over the pt into a hospital gown and placed him on a alarm security or surveillance monitor based on his hx of afib. VS taken and stable and warm blanket given for comfort.
--- OUTSIDE RECORDS SUMMARY | 2024-07-16 17:25 | XMS_ITS ---
Author Organization Shaheed Cyr III, MD Address [address] [place] [address] Care Team Providers Care Mohs Surgeon/General Dermatologist Name Role Phone Shaheed Cyr Primary Care Provider Allergies Allergen (clinical drug ingredient) Drug/Non Drug Allergy documented on EMR Reaction Allergy Type Onset Date Status Thiopental Sodium Violent reaction Drug Allergy Active morphine Morphine Sulfate Unknown Drug Allergy Active zolpidem Ambien irritability Drug Allergy Acti ve REASON FOR VISIT Open wound, erythema and edema, left foot, Diabetes, Tobacco dependence, Depression, Hypertension, Obesity Medications Medication SIG (Take, Route, Frequency, Duration) Notes Start Date End Date Status Cetirizine HCl 10 MG 1 tablet Orally Onc e a day Active Atenolol 50 MG 1 tablet Orally Once a day Active Eliquis 5 MG 1 tablet Orally Twice a day Active metFORMIN HCl 500 MG 2 tablet with a sophie l Orally twice a day Active Verapamil HCl ER 180 MG TAKE 1 TABLET BY MOUTH DAILY Oral Active Pen Mead 16 31G X 8 MM Use twice a day before meals E11.9 Type 2 diabetes mellitus, 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 Active Lisinopril 5 MG TAKE 1 TABLET BY MOUTH EVERY DAY Active amLODIPine Besylate 10 MG TAKE 1 TABLET BY MOUTH EVERY DAY Active FreeStyle Myles 3 Sensor - as directed - use to check blood sugars four times a day 10/15/2023 Active Furosemide 20 MG 1 tablet Orally Once a day Active Nicotine Step 1 21 MG/24HR 1 patch to skin Transdermal Once a day 06/07/2024 Active Doxycycline Hyclate 100 MG 1 tablet Orally Twice a day 02/02/2024 Active Ketoconazole 2 % 1 application Externally twice a day 03/24/2024 Active Ibuprofen 800 MG 1 tablet with food Orally every 8 hrs for pain 05/31/2024 Active traZODone HCl 100 MG 1 tablet at bedtime Orally Once a day at bedtime 05/31/2024 Active Exenatide ER 2 MG/0.85ML as directed Subcutaneous once a week 09/16/2023 Active Ozempic (0.25 or 0.5 MG/DOSE) 2 MG/3ML 0.5 mg Subcutaneous weekly 09/30/2023 Active FreeStyle Myles 14 Day [place] - as directed - use to check blood sugars four times a day DX= E11.9 insulin dependent diabetic 04/10/2023 Active FreeStyle Myles 14 Day Sensor - as directed - use to check blood sugars four times a day DX= E11.9 insulin dependent diabetic 04/10/2023 Active Insulin Glargine Solostar 100 UNIT/ML as directed Subcutaneous 40 units once a day 03/31/2023 Active Doxepin HCl 10 MG Oral Ac tive Alcohol Prep Pad 70 % as directed Once a day 04/01/2023 Active Social History Tobacco Use: Social History Observation Description Date Details (start date - stop date) Current Smoker NA - NA Sex Assigned At : Social History Observation Description Sex Assigned At Male Tobacco Use/Smoking Question Answer Notes Patient is a current smoker How often do you smoke cigarettes? every day How many cigarettes a day do you smoke? 11-20 How soon after you wake up d o you smoke your first cigarette? 31-60 minutes Are you interested in quitting? Not ready to joselyn t Additional Findings: Tobacco User Modera te cigarette smoker (10-19 cigs/day) Vital Signs Height 74 in 07/13/2024 Weight 262 lbs 07/13/2024 BMI 33.64 kg/m2 07/13/[address] Christopher. I think it. Your blood work Encounters Encounter Location Date Provider Diagnosis Shaheed Cyr III, MD [address] [place] [address] [address] [place], [place] [address] 07/13/2024 Shaheed Cyr Acute cellulitis L03 .90 ; History of depression Z86.59 ; Tobacco dependence F17.200 ; Obesity (BMI 30-39.9) E66.9 ; Essential hypertension I10 ; Gout, unspecified cause, unspecified chronicity, unspecified site M10.9 ; Osteoarthritis of right shoulder, unspecified osteoarthritis type M19.011 and BPH (benign prostatic hyperplasia) N40.0 Assessments Encounter Date Diagnosis (ICD Code) Assessment Notes Treat ment Notes Treatment Clinical Notes 07/13/2024 Acute cellulitis (ICD-10 - L03.90) Reviewed verbal description of the left foot indicates that he has cellulitis as well as diabetes in an open wound. He was told to go immediately to the emergency room [facility] for diagnosis and treatment. He agreed to do so at once. 07/13/2024 History of depressio n (ICD-10 - Z86.59) His depression and has clearly worsened. I have increased the dose of his S citalopram and we'll add a second drug if necessary. 07/13/2024 Tobacco dependence (ICD-10 - F17.200) I have strongly recommended smoking cessation. We have discussed the health consequences including worsening emphysema continued smoking. We discussed his father's lung cancer. I recommended him to smoke [place] in smoking cessation programs at the local hospitals which she will consider. 07/13/2024 Obesity (BMI 30-39.9 ) (ICD-10 - E66.9) He has gained 28 pounds and his body mass index remains in the obese range at There is 3.6. He is a known insulin-dependent diabetic under the care of an tool specialist. We discussed diet and nutrition at length today. We made a plan to lose weight at a rate of one half of a pound per week through a diet restricted in fat calories sodium any concentrated sweets. 07/13/2024 Essential hypertension (ICD-10 - I10) His blood pressure is stable at 124/70 and controlled today. No change in his regimen was needed. 07/13/2024 Gout, unspecified cause, unspecified chronicity, unspecified site (ICD-10 - M10.9) He has had no attacks of gout since his last visit. Observation was continued. 07/13/2024 Osteoarthritis of right shoulder, unspecified osteoarthritis type (ICD-10 - M19.011) The right shoulder has significant loss of range of motion. I have referred him back to Dr. Erickson. 07/13/2024 BPH (benign prostati c hyperplasia) (ICD-10 - N40.0) He complains of nocturia once a night on the average. We have discussed lifestyle modification as a way to reduce nocturia. 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 Lisinopril 5 MG TAKE 1 TABLET BY COLE TH EVERY DAY amLODIPine Besylate 10 MG TAKE 1 TABLET BY MOUTH EVERY DAY FreeStyle Myles 3 Sensor - as directed - use to check blood sugars four times a day 10/15/2023 Furosemide 20 MG 1 tablet Orally Once a day Nicotine Step 1 21 MG/24HR 1 patch to skin Transdermal Once a day 06/07/2024 Doxycycline Hyclate 100 MG 1 tablet Orally Twice a day 02/02/2024 Ketoconazole 2 % 1 application Externally twice a day 03/24/2024 Ibuprofen 800 MG 1 tablet with food Orally every 8 hrs for pain 05/31/2024 traZODone HCl 100 MG 1 tablet at bedtime Orally Once a day at bedtime 05/31/2024 Exenatide ER 2 MG/0.85ML as directed Subcutaneous once a week 09/16/2023 Ozempic (0.25 or 0.5 MG/DOSE) 2 MG/3ML 0.5 mg Subcutaneous weekly 09/30/2023 FreeStyle Myles 14 Day [place]cad[place] - as directed - use to check blood sugars four times a day 04/10/2023 DX= E11.9 insulin dependent diabetic FreeStyle Myles 14 Day Sensor - as directed - use to check blood sugars four times a day 04/10/2023 DX= E11.9 insulin dependent diabetic Insulin Glargine Solostar 100 UNIT/ML as directed Subcutaneous 40 units once a day 03/31/2023 Doxepin HCl 10 MG Oral Alcohol Prep Pad 70 % as directed Once a day 04/01/2023 Next Appt Details Follow Up: As Scheduled, Fri, Reason: OV, Follow up on the ER's instructions and the treatment of the foot infection Provider Name:Shaheed Clintonne, 07/23/2024 09:45:00 AM, [address] [facility] [address], [place], [address], Provider Name:Shaheed Cyr, 07/29/2024 10:15:00 AM, [address] [facility] [address], [place], [address], Progress Notes * Mazin GREENDOB: 9 (53 yo M)Acc No.[id number]:07/13/2024 Patient:?Mazin GREEN Provider:?Shaheed Cyr MD :1970???Age:53 Y???Sex:Male Murphy e:07/13/2024 Phone: Address:[address] [place] [address], [address]-[id number] Subjective: * Chief Complaints: * ???Open wound, erythema and edema, left footDiabetesTobacco dependenceDepressionHypertensionObesity * HPI: ???:?Telehealth?Location of provider rendering services:?{...} [address] [facility] [address] ?Location of patient:?address listed in demographics for today's visit ?Patient identification confirmed using:?Name, ?Telehealth method:?Telephone only. Patient not visible to care provider. ?Consent:?Patient verbally consented to treatment, Patient verbally consented to billing insurance company, Patient informed of any privacy concerns related to method of visit ?Total time spent with patient (mins)?15 ? The patient, a 53-year-old male, has been experiencing symptoms related to his foot for the past few days. He has a sore on the bottom of his foot, specifically below his toe on the fat part of the ball. The patient also reported a fever that broke recently. The foot has become swollen and red, and a bubble-like formation has appeared between the sore spot and his baby toe. The patient has a history of diabetes and has not been eating properly due to recent oral surgery. The patient is aware that his foot is infected. * ROS:?General/Constitutional:?pain?Shoulders and left foot.?Chills?denies.?Fatigue?admits.?Admits?Fever,?denies.?ENT:?Decreased hearing?denies.?Respiratory:?Cough?non-productive.?Cardiovascular:?Chest pain with exertion?denies.?Dyspnea on exertion?denies.?Shortness of breath?denies.?Gastrointestinal:?Constipation?occasional.?Decreased appetite?denies.?Diarrhea?denies.?Heartburn?denies.?Nausea?denies.?Rectal bleeding?denies.?Vomiting?denies.?Hematology:?bruising?denies.?petechiae?denies.?Swollen glands?none have been noted.?Genitourinary:?Frequent urination?once a night.?Musculoskeletal:?Muscle aches?denies.?Painful joints?denies.?Sciatica?denies.?Weakness?denies.?Skin:?Itching?denies.?Rash?denies.?Skin lesion(s)?Wound bottom left foot.?Neurologic:?Difficulty speaking?denies.?Dizziness?denies.?Headache?denies.?Low back pain?denies.?Psychiatric:?Depressed mood?denies.? * Medical History:? * Surgical History:?inguinal h ernia repair right ankle reconstruction s/p fracture spinal cord stimulator implant 12/2011left cataract surgery 2017right cataract surgery 06/2017rig knee reconstruction 2014No history Watchman procedure * Hospitalization/Major Diagno stic Procedure:?chest pain negative w/u 07/2015severe back pain 2015cyst removal left foot alceration 05/2018Diverticulitis 05/05/2019No history * Family History:?Father: dece ased 80 yrs, Diabetes mellitus, lung cancer, diagnosed with Cancer.?Mother: 60 yrs, Malignant lymphoma.?Daughter(s): alive.?3 brother(s) , 1 sister(s) . 1 daughter(s) - healthy. .? A brother is diabetic, as is a paternal uncle. He has a healthy daughter. He is not aware of any family history of mental illness or addiction or substance abuse. * Social History:?Tobacco Use:?Tobacco Use/Smoking?Patient is a?current smoker ?How often do you smoke cigarettes??every day ?How many cigarettes a day do you smoke??11-20 ?How soon after you wake up do you smoke your first cigarette??31-60 minutes ?Are you interested in quitting??Not ready to quit ?Additional Findings: Tobacco User?Moderate cigarette smoker (10-19 cigs/day) ???He was born locally and is for many years. He has 1 child who is healthy and well. He is disabled. * Medications:?TakingNicotine Step 1 21 MG/24HR Patch 24 Hour 1 patch to skin Transdermal Once a day Pen Mead 10/22 31G X 8 MM Miscellaneous Use twice a day before meals , Notes to Pharmacist: E11.9 Type 2 diabetes mellitus, Z79.4 longterm (current) use of insulinLisinopril 5 MG Tablet TAKE 1 TABLET BY MOUTH EVERY DAY amLODIPine Besylate 10 MG Tablet TAKE 1 TABLET BY MOUTH EVERY DAY FreeStyle Myles 3 Sensor - Miscellaneous as directed - use to check blood sugars four times a day Furosemide 20 MG Tablet 1 tablet Orally Once a day Cetirizine HCl 10 MG Tablet 1 tablet Orally Once a day Atenolol 50 MG Tablet 1 tablet Orally Once a day Eliquis 5 MG Tablet 1 tablet Orally Twice a day metFORMIN HCl 500 MG Tablet 2 tablet with a meal Orally twice a day Verapamil HCl ER 180 MG Tablet Extended Release TAKE 1 TABLET BY MOUTH DAILY Oral Doxepin HCl 10 MG Capsule Oral Alcohol Prep Pad 70 % Pad as directed Once a day FreeStyle Myles 14 Day [place]cad[place] - Device as directed - use to check blood sugars four times a day , Notes to Pharmacist: DX= E11.9 insulin dependent diabeticFreeStyle Myles 14 Day Sensor - Miscellaneous as directed - use to check blood sugars four times a day , Notes to Pharmacist: DX= E11.9 insulin dependent diabeticInsulin Glargine Solostar 100 UNIT/ML Solution Pen-injector as directed Subcutaneous 40 units once a day Exenatide ER 2 MG/0.85ML Auto-injector as directed Subcutaneous once a week Ozempic (0.25 or 0.5 MG/DOSE) 2 MG/3ML Solution Pen- injector 0.5 mg Subcutaneous weekly Doxycycline Hyclate 100 MG Tablet 1 tablet Orally Twice a day Ketoconazole 2 % Cream 1 application Externally twice a day Ibuprofen 800 MG Tablet 1 tablet with food Orally every 8 hrs for pain traZODone HCl 100 MG Tablet 1 tablet at bedtime Orally Once a day at bedtime Medication List reviewed and reconciled with the patientTaking Nicotine Step 1 21 MG/24HR Patch 24 Hour 1 patch to skin Transdermal Once a day Taking Pen Mead 5/16 31G X 8 MM Miscellaneous Use twice a day before meals , Notes to Pharmacist: E11.9 Type 2 diabetes mellitus, Z79.4 longterm (current) use of insulinTaking Lisinopril 5 MG Tablet TAKE 1 TABLET BY MOUTH EVERY DAY Taking amLODIPine Besylate 10 MG Tablet TAKE 1 TABLET BY MOUTH EVERY DAY Taking FreeStyle Myles 3 Sensor - Miscellaneous as directed - use to check blood sugars four times a day Taking Furosemide 20 MG Tablet 1 tablet Orally Once a day Taking Cetirizine HCl 10 MG Tablet 1 tablet Orally Once a day Taking Atenolol 50 MG Tablet 1 tablet Orally Once a day Taking Eliquis 5 MG Tablet 1 tablet Orally Twice a day Taking metFORMIN HCl 500 MG Tablet 2 tablet with a meal Orally twice a day Taking Verapamil HCl ER 180 MG Tablet Extended Release TAKE 1 TABLET BY MOUTH DAILY Oral Taking Doxepin HCl 10 MG Capsule Oral Taking Alcohol Prep Pad 70 % Pad as directed Once a day Taking FreeStyle Myles 14 Day [place] - Device as directed - use to check blood sugars four times a day , Notes to Pharmacist: DX= E11.9 insulin dependent diabeticTaking FreeStyle Myles 14 Day Sensor - Miscellaneous as directed - use to check blood sugars four times a day , Notes to Pharmacist: DX= E11.9 insulin dependent diabeticTaking Insulin Glargine Solostar 100 UNIT/ML Solution Pen- injector as directed Subcutaneous 40 units once a day Taking Exenatide ER 2 MG/0.85ML Auto-injector as directed Subcutaneous once a week Taking Ozempic (0.25 or 0.5 MG/DOSE) 2 MG/3ML Solution Pen-injector 0.5 mg Subcutaneous weekly Taking Doxycycline Hyclate 100 MG Tablet 1 tablet Orally Twice a day Taking Ketoconazole 2 % Cream 1 application Externally twice a day Taking Ibuprofen 800 MG Tablet 1 tablet with food Orally every 8 hrs for pain Taking traZODone HCl 100 MG Tablet 1 tablet at bedtime Orally Once a day at bedtime Medication List reviewed and reconciled with the patient * Allergies:?Ambien: irritabil ityMorphine SulfateThiopental Sodium: Violent reactionno[Allergies Verified] Objective: * Vitals:?Ht: 74, Wt: 262, BMI :33.64, Wt-k.84. OMM Dr. Christopher.? I think it.? Your blood work. * ???Past Orders: Lab:Complete Blood Count Aut o Diff * Collection Date 06/13/2024 06/13/2024 03/24/2023 Collection Time 11:46 PM 11:46 PM 03:37 PM Order Date 06/13/2024 06/13/2024 03/24/2023 White Blood Count 12.6?H (Ref Range: 4.8-10.8 X10*3/uL) 12.6?H (Ref Range: 4.8-10.8 X10*3/uL) 9.8 (Ref Range: 4.8-10.8 X10*3/uL) Red Blood Count 3.86?L (Ref Range: 4.60-5.80 X10*6/uL) 3.86?L (Ref Range: 4.60-5.80 X10*6/uL) 4.21?L (Ref Range: 4.60-5.80 X10*6/uL) Hemoglobin 12.1?L (Ref Range: 14.0-18.0 g/dl) 12.1?L (Ref Range: 14.0-18.0 g/dl) 12.9?L (Ref Range: 14.0-18.0 g/dl) Hematocrit 34.7?L (Ref Range: 42.0-52.0 %) 34.7?L (Ref Range: 42.0-52.0 %) 39.4?L (Ref Range: 42.0-52.0 %) Mean Corpuscular Volume 89.9 (Ref Range: 80.0-98.0 fL) 89.9 (Ref Range: 80.0-98.0 fL) 93.6 (Ref Range: 80.0-98.0 fL) Mean Corpuscular Hemoglobin 31.3 (Ref Range: 27.0-33.0 pg) 31.3 (Ref Range: 27.0-33.0 pg) 30.6 (Ref Range: 27.0-33.0 pg) Mean Corpuscular HGB Conc 34.9 (Ref Range: 31.0-36.0 g/dl) 34.9 (Ref Range: 31.0-36.0 g/dl) 32.7 (Ref Range: 31.0-36.0 g/dl) Red Cell Distribution Width 12.8 (Ref Range: 11.0-16.0 %) 12.8 (Ref Range: 11.0-16.0 %) 13.3 (Ref Range: 11.0-16.0 %) Platelet Count 244 (Ref Range: 160-400 X10*3/uL) 244 (Ref Range: 160-400 X10*3/uL) 274 (Ref Range: 160-400 X10*3/uL) Mean Platelet Volume 9.9 (Ref Range: 9.4-12.4 fL) 9.9 (Ref Range: 9.4-12.4 fL) 11.2 (Ref Range: 9.4-12.4 fL) Neutrophils Percent Auto 75.0?H (Ref Range: 45-73 %) 75.0?H (Ref Range: 45-73 %) 69.0 (Ref Range: 45-73 %) Imm Gran Pct Auto 0.4 (Ref Range: 0.0-0.4 %) 0.4 (Ref Range: 0.0-0.4 %) 1.8?H (Ref Range: 0.0-0.4 %) Lymphocytes Percent Auto 10.0?L (Ref Range: 20-40 %) 10.0?L (Ref Range: 20-40 %) 15.1?L (Ref Range: 20-40 %) Monocytes Percent Auto 12.8?H (Ref Range: 2-11 %) 12.8?H (Ref Range: 2-11 %) 8.8 (Ref Range: 2-11 %) Eosinophils Percent Auto 1.4 (Ref Range: 0-4 %) 1.4 (Ref Range: 0-4 %) 4.9?H (Ref Range: 0-4 %) Basophils Percent Auto 0.4 (Ref Range: 0-2 %) 0.4 (Ref Range: 0-2 %) 0.4 (Ref Range: 0-2 %) NRBC Pct Auto 0.0 (Ref Range: 0.0-0.2 /100WBC) 0.0 (Ref Range: 0.0-0.2 /100WBC) 0.0 (Ref Range: 0.0-0.2 /100WBC) Neutrophils Absolute Auto 9.5?H (Ref Range: 2.0-8.3 x10*3/uL) 9.5?H (Ref Range: 2.0-8.3 x10*3/uL) 6.8 (Ref Range: 2.0-8.3 x10*3/uL) Imm Gran Abs Auto 0.05?H (Ref Range: 0.00-0.03 X10*3/uL) 0.05?H (Ref Range: 0.00-0.03 X10*3/uL) 0.18?H (Ref Range: 0.00-0.03 X10*3/uL) Lymphocytes Absolute Auto 1.3 (Ref Range: 1.2-4.9 X10*3/uL) 1.3 (Ref Range: 1.2-4.9 X10*3/uL) 1.5 (Ref Range: 1.2-4.9 X10*3/uL) Monocytes Absolute Auto 1.6?H (Ref Range: 0.1-1.2 X10*3/uL) 1.6?H (Ref Range: 0.1-1.2 X10*3/uL) 0.9 (Ref Range: 0.1-1.2 X10*3/uL) Eosinophils Absolute Auto 0.2 (Ref Range: 0.0-0.4 X10*3/uL) 0.2 (Ref Range: 0.0-0.4 X10*3/uL) 0.5?H (Ref Range: 0.0-0.4 X10*3/uL) Basophils Absolute Auto 0.1 (Ref Range: 0.0-0.2 X10*3/uL) 0.1 (Ref Range: 0.0-0.2 X10*3/uL) 0.0 (Ref Range: 0.0-0.2 X10*3/uL) NRBC Abs Auto 0.000 (Ref Range: 0.0-0.012 X10*3/uL) 0.000 (Ref Range: 0.0-0.012 X10*3/uL) 0.000 (Ref Range: 0.0-0.012 X10*3/uL) * Lab:SLIDE REVIEW * Collection Date 06/13/2024 06/13/2024 Collection Time 11:46 PM 11:46 PM Order Date 06/13/2024 06/13/2024 SLIDE REVIEW VERIFIED VERIFIED * Lab:Comprehensive Met. Panel * Collection Date 06/13/2024 03/24/2023 Collection Time 11:46 PM 03:37 PM Order Date 06/13/2024 03/24/2023 Sodium 136 (Ref Range: 135-145 mmol/L) 130?L (Ref Range: 135-145 mmol/L) Bilirubin Total 0.5 (Ref Range: 0.0-1.0 mg/dL) 0.4 (Ref Range: 0.0-1.0 mg/dL) Aspartate Amino Transferase 32 (Ref Range: 5-37 U/L) 15 (Ref Range: 5-37 U/L) Alanine Aminotransferase 24 (Ref Range: 0-40 U/L) 26 (Ref Range: 0-40 U/L) Total Protein 6.9 (Ref Range: 6.5-8.0 g/dL) 7.6 (Ref Range: 6.5-8.0 g/dL) Albumin Level 3.7 (Ref Range: 3.5-5.0 g/dL) 3.6 (Ref Range: 3.5-5.0 g/dL) Alkaline Phosphatase 95 (Ref Range: 39-117 U/L) 103 (Ref Range: 39-117 U/L) Potassium 4.4 (Ref Range: 3.3-5.1 mmol/L) 4.8 (Ref Range: 3.3-5.1 mmol/L) Chloride 102 (Ref Range: 96-108 mmol/L) 93?L (Ref Range: 96-108 mmol/L) Carbon Dioxide 23 (Ref Range: 22-29 mmol/L) 23 (Ref Range: 22-29 mmol/L) Anion Gap 15 (Ref Range: 12-20) 19 (Ref Range: 12-20) Blood Urea Nitrogen 22?H (Ref Range: 9-16 mg/dL) 20?H (Ref Range: 9-16 mg/dL) Creatinine 0.82 (Ref Range: 0.5-1.4 mg/dL) 1.17 (Ref Range: 0.5-1.4 mg/dL) Estimated Glomerular Filt Rate > 60 > 60 Glucose Random 123?H (Ref Range: 60-115 mg/dL) 312?H (Ref Range: 60-115 mg/dL) Calcium 8.8 (Ref Range: 8.4-10.2 mg/dL) 9.9 (Ref Range: 8.4-10.2 mg/dL) Creatinine Clr Calc Pharmacy 135.1 NR Assessment: * Assessment: 1.?Acute cellulitis - L03.90 (Primary)???Notes :Reviewed verbal description of the left foot indicates that he has cellulitis as well as diabetes in an open wound.? He was told to go immediately to the emergency room [facility] for diagnosis and treatment.? He agreed to do so at once.???2.?History of depression - Z86.59???Notes :His depression and has clearly worsened. I have increased the dose of his S citalopram and we'll add a second drug if necessary.???3.?Tobacco dependence - F17.200???Notes :I have strongly recommended smoking cessation. We have discussed the health consequences including worsening emphysema continued smoking. We discussed his father's lung cancer. I recommended him to smoke [place] in smoking cessation programs at the local [facility] which she will consider.???4.?Obesity (BMI 30-39.9) - E66.9???Notes :He has gained 28 pounds and his body mass index remains in the obese range at There is 3.6. He is a known insulin-dependent diabetic under the care of an tool specialist. We discussed diet and nutrition at length today. We made a plan to lose weight at a rate of one half of a pound per week through a diet restricted in fat calories sodium any concentrated sweets.???5.?Essential hypertension - I10???Notes :His blood pressure is stable at 124/70 and controlled today. No change in his regimen was needed.???6.?Gout, unspecified cause, unspecified chronicity, unspecified site - M10.9???Notes :He has had no attacks of gout since his last visit. Observation was continued.???7.?Osteoarthritis of right shoulder, unspecified osteoarthritis type - M19.011???Notes :The right shoulder has significant loss of range of motion. I have referred him back to Dr. Erickson.???8.?BPH (benign prostatic hyperplasia) - N40.0???Notes :He complains of nocturia once a night on the average. We have discussed lifestyle modification as a way to reduce nocturia.??? Plan: * Treatment: * Procedure Codes:? * Preventive Medicine:? ??Counseling:?Care goal follow-up plan:?Counseling for abnormal BMI given?Yes ?Above Normal BMI Follow-up?Dietary management education, guidance, and counseling, Dietary needs education, Exercise promotion: strength training, Exercise promotion: stretching, Feeding regime, Giving encouragement to exercise, Lifestyle education regarding diet, Nutrition / feeding management, Nutrition therapy, Prescribed activity/exercise education, Prescribed diet education, Prescribed dietary intake, Special diet education, Weight monitoring , Intervention, Order not done: Medical or Other reason not done ?Smoking/Tobacco Use?Patient counseled on the dangers of tobacco use and urged to quit.?07/13/2024 ?Patient Lifestyle Goals?Patient wants to quit ?Treatment Goals?Cut down by 1 cigarette a week, Set a quit date ?Barriers?Social smoker, Stress ?Self-Management Plan?Speak with family/friends about quitting and how they can help, Make a plan to cut down number of cigarettes over time and set a date to work towards quitting ??DM Care Plan:?Patient Lifestyle Goals?Patient wants to be able to manage diabetes without too much effort.?Treatment Goals?Blood Sugars less than < 115, HbA1C < 7.0.?Barriers?no barriers.?Self-Managment Goals?Work on weight loss, with a goal of losing 1 lb per week, Take blood sugars twice daily and keep a log. Bring log in to next appointment.?He'll. * Follow Up:?As Scheduled, Fri (Reason: OV, Follow up on the ER's instructions and the treatment of the foot infection) * Images: * Sign off status: Completed true * Provider:?Shaheed Cyr MD Date:?09/2024 Generated for Rodrigo rapp/Ginny/Ant on:?07/16/2024 05:25 PM EST History and Physical Notes * HPI (History of Present Illness) Category Sub-Category Detail Notes Telehealth Location of [facility] rendering services:: {...} [address] [facility] [address] Location of patient:: address listed in demographics for today's visit Patient identification confirmed using:: Name, Telehealth method:: Telephone only. Sara ent not visible to care provider. Consent:: Patient verbally c onsented to treatment, Patient verbally consented to billing insurance company, Patient informed of any privacy concerns related to method of visit Total time spent with patient (mins): 15
[2024-07-16] MEDS: fentaNYL citrate/PF 100 MCG/2 ML VIAL 50 MCG IVPUSH (18:10)
[2024-07-16] MEDS: ondansetron HCL 4 MG/2 ML VIAL IVPUSH (18:11)
[2024-07-16] MEDS: Piperacillin Sodium/Tazobactam 3.375 GM in 0.9 % Sodium Chloride 50 ML IV (18:13)
[2024-07-16] MEDS: vancomycin/NS 2,000 MG/500 ML PLAST..BAG 250 MG IV (18:13)
[2024-07-16] MEDS: Magnesium Sulfate/H2O 2 GM/50 ML PIGGYBACK IV (18:13)
[2024-07-16] MEDS: Lidocaine HCl 1 % MPF 5 ML VIAL 10 ML SUBCUT (18:17)
--- NOTE | 2024-07-16 18:50 | P.HPGS_ITS ---
History of Present Illness History of Present Illness Date of Service: 07/16/24 Chief complaint: Foot Infection Narrative: Mazin Nichole is a 53 year old male diabetic who has hemoglobin A1c he says is in the 6 range who about a week ago developed a wound on the bottom of his foot. At that time it got worse pretty quickly and he went to the hospital at [place] and was seen by an emergency room doc and the surgeon came to debride and relieve some pus. He was started on doxycycline but the wound continued to get worse and painful. He eventually saw Podiatry today who debrided the foot and was very concerned about it being infected and told him to come to the emergency room right away. He denies any significant fevers or chills but he has been having significant pain on his left foot area. Here x-ray was carried out which shows potentially a healing fracture or maybe osteomyelitis. His white count is normal but his ESR is elevated and CRP as well. Review of Systems Review of Systems: Patient has issues with back pain and spinal stenosis and has a nerve stimulator but generally does well and does not take medication in regards to pain pills for this anymore [facility] Social History Social History Alcohol intake: current Alcohol intake frequency: a few times a week Patient Tobacco Use Status: Former Tobacco user Smoked in Last 30 Days: Yes Use of substances other than those prescribed or required for medical reasons: No Advance Directives: No Advance Directives Information Provided: Yes Nutrition Risks: No Nutritional Risk Meds Allergies Allergy/AdvReac Type Severity Reaction Status Date / Time thiopental [SODIUM PENTOTHAL] Allergy Severe BECOMES Verified 07/16/24 13:56 VIOLENT morphine Allergy Unknown Unknown Verified 07/16/24 13:56 Sodium pent Allergy Unknown Unknown Uncoded 06/13/24 23:31 Active Medications: Current Medications Acetaminophen (Acetaminophen 325 Mg Tablet) 650 mg PO Q6H PRN PRN Reason: Pain, Mild 1-3,fever,headache Atenolol (Atenolol 50 Mg Tablet) 50 mg PO BID [facility]; Protocol Calcium Carbonate (Calcium Carbonate 750 Mg Tab.Chew) 750 mg PO Q4H PRN PRN Reason: Heartburn Magnesium Sulfate (Magnesium Sulfate/H2o) 2 gm in 50 mls @ 25 mls/hr IV ONCE ONE Stop: 07/16/24 19:27 Last Admin: 07/16/24 18:13 Dose: 25 mls/hr Vancomycin HCl (Vancomycin/Ns) 2,000 mg in 500 mls @ 250 mls/hr IV ONCE ONE Stop: 07/16/24 19:44 Last Admin: 07/16/24 18:13 Dose: 250 mls/hr Piperacillin Sod/Tazobactam (Sod 3.375 gm/ Sodium Chloride) 50 mls @ 100 mls/hr IV Q6H [facility] Ketorolac Tromethamine (Ketorolac Tromethamine 15 Mg/Ml Vial) 15 mg IVPUSH RQ6H PRN PRN Reason: Pain, Severe (Pain Scale 7-10) Magnesium Hydroxide (Milk Of Magnesia 30 Ml Oral.Susp) 30 ml PO DAILY PRN PRN Reason: Constipation Melatonin (Melatonin 3 Mg Tablet) 6 mg PO BEDTIME PRN PRN Reason: Insomnia Metformin HCl (Metformin Hcl 1,000 Mg Tablet) 1,000 mg PO BID [facility] Oxycodone HCl (Oxycodone Hcl Immed Release 5 Mg Tablet) 10 mg PO RQ6H PRN PRN Reason: Pain, Moderate(Pain Scale 4-6) Sodium Chloride (0.9 % Sodium Chloride Flush 3 Ml Syringe) 3 ml IVFLUSH [facility] Home Medications ?Medication ?Instructions ?Recorded ?Confirmed ?Last Taken ?Type blood sugar diagnostic (Sameer #10 ea 07/08/23 Unknown History Lite Strips) amlodipine 10 mg tablet 10 mg PO DAILY 07/16/24 Unknown History atorvastatin 40 mg tablet 40 mg PO DAILY 07/16/24 Unknown History cetirizine 10 mg tablet 10 mg PO DAILY 07/16/24 Unknown History digoxin 125 mcg (0.125 mg) tablet 125 mcg PO DAILY 07/16/24 Unknown History furosemide 20 mg tablet 20 mg PO DAILY 07/16/24 Unknown History insulin glargine 100 unit/mL (3 50 unit subcut DAILY 07/16/24 Unknown History mL) subcutaneous pen (Lantus Solostar U-100 Insulin) lisinopril 5 mg tablet 5 mg PO DAILY 07/16/24 Unknown History nicotine 21 mg/24 hr daily 1 patch topical DAILY 07/16/24 Unknown History transdermal patch semaglutide 0.25 mg or 0.5 mg (2 0.5 mg subcut QWEEK 07/16/24 Unknown History mg/3 mL) subcutaneous pen injector (Ozempic) sulfamethoxazole 800 1 tab PO BID 07/16/24 Unknown History mg-trimethoprim 160 mg tablet trazodone 100 mg tablet 100 mg PO BEDTIME 07/16/24 Unknown History verapamil 180 mg tablet,extended 180 mg PO DAILY 07/16/24 Unknown History release Physical Exam Vital Signs: Vital Signs: Last Vital Signs Temp 98.1 F 07/16/24 16:59 Pulse 84 07/16/24 16:59 Resp 18 07/16/24 16:59 BP 113/81 07/16/24 16:59 Pulse Ox 93 07/16/24 16:59 O2 Del Method Room Air 07/16/24 16:59 BMI result Body Mass Index 31.2 Const: General: cooperative, healthy appearing, comfortable and acute distress mild Resp: Effort & Inspection: normal respiratory effort Auscultation: clear to auscultation bilaterally Cardio: Rate: regular rate Rhythm: regular rhythm Skin: Other: Left plantar foot wound at the base of the 2nd toe going towards the metatarsal head area there is an open wound down to the fatty tissue that is 2 cm long and about 6 cm wide with some pink base that looks good and then some grayish necrotic tissue. Patient has palpable pedal pulse no ascending infection there is an odor to the foot he does have good sensation although in some areas it is a little decreased Results Results Labs: Short CBC 07/16/24 Range/Units 14:14 WBC 8.2 (4.8-10.8) X10*3/uL Hgb 11.1 L (14.0-18.0) g/dl Hct 32.3 L (42.0-52.0) % Plt Count 185 (160-400) X10*3/uL BMP 07/16/24 14:13 Sodium 134 L Potassium 3.8 Chloride 101 Carbon Dioxide 21 L BUN 10 Creatinine 0.86 Calcium 9.1 Assessment and Plan (1) Diabetic foot infection: Status: Acute Plan 53-year-old male with left foot diabetic foot infection question fracture osteomyelitis. Plan to admit diabetic diet IV Zosyn and vanco follow up on g stain of cultures done. Dressing changes and debridements as necessary. We will do Dakin's wet-to-dry dressings starting on the 8th p.o. pain meds and will get Infectious Disease consult. If osteomyelitis is indeed suspected then plan to get PICC line with most likely 6 weeks IV antibiotic treatment. He and his understand and agree with the above plan. Continue with tight glucose control Quality Stroke Does the patient have a stroke diagnosis?: No VTE Prior VTE?: No VTE Risk Level:: Surgical - low VTE Device Contraindication: N/A - Device Ordered VTE Drug Contraindication: Treatment Not Indicated Procedures Date of Service Date of Service: 07/16/24
[2024-07-16] MEDS: Ketorolac Tromethamine 15 MG/ML VIAL IVPUSH (20:09)
--- NOTE | 2024-07-16 20:15 | PHA.MEDREC ---
Addendum entered by Laurent Aguila, [facility] 07/16/24 20:30: [facility] rec reviewed Original Note: Pharmacy Consult ? Medication Reconciliation Pharmacy has completed the medication reconciliation. Spoke with patient and he confirmed his medications. He confirmed he had started the sulfamethoxazole-trimethoprim 800-160 mg tab yesterday morning and took a 3rd dose of that this morning he confirm. He also stated that while taking the sulfamethoxazole-trimethoprim 800-160 mg tabs he is suppose to start taking the Digoxin 125mg tab q48h until he is done with the Antibiotic but has not been able to start doing that since he came in today and started the sulfamethoxazole-trimethoprim 800-160 mg yesterday. He claims he stopped taking the Amlodipine and Lisinopril tablets about 6 [address] Dr but in claims he has been filling them consistently and the patient states that the pharmacy keeps filling them but he is not taking them. He confirmed the Lantus Solostar and confirmed he is injecting 50 units at bedtime and he last did that yesterday. He confirmed he took his morning medications this morning.
[2024-07-16] MEDS: atenoloL 50 MG TABLET PO (22:41)
[2024-07-16] MEDS: oxyCODONE HCl Immed Release 5 MG TABLET 10 MG PO (22:41)
[2024-07-16] MEDS: metFORMIN HCl 1,000 MG TABLET 1000 MG PO (22:41)
[2024-07-16] MEDS: 0.9 % Sodium Chloride Flush 3 ML SYRINGE IVFLUSH (22:42)
[2024-07-17] VITALS (7 sets, daily range): BP systolic 106–126; BP diastolic 62–90; PULSE 60–92; RESP 18; TEMP 36.2–36.8; O2SAT 94–97
[2024-07-17] MEDS: Piperacillin Sodium/Tazobactam 3.375 GM in 0.9 % Sodium Chloride 50 ML IV ×4 (01:47→21:41)
[2024-07-17] MEDS: oxyCODONE HCl Immed Release 5 MG TABLET 10 MG PO ×2 (05:49→12:05)
[2024-07-17 07:25] LABS: Glucose, Whole Blood 106 mg/dL (60-115)
[2024-07-17] MEDS: 0.9 % Sodium Chloride Flush 3 ML SYRINGE IVFLUSH ×3 (08:24→20:08)
[2024-07-17] MEDS: atenoloL 50 MG TABLET PO ×2 (08:26→20:07)
[2024-07-17] MEDS: metFORMIN HCl 1,000 MG TABLET 1000 MG PO (08:26)
[2024-07-17] MEDS: Ketorolac Tromethamine 15 MG/ML VIAL IVPUSH (09:36)
--- NOTE | 2024-07-17 10:40 | MHC.CM.PN ---
Addendum entered by Erum Lewis 07/17/24 13:59: NEW HCP COMPLETED AND NOW ON FILE PT ALSO ASKING ABOUT HOW TO GET A WALKER AT DC PROCESS EXPLAINED Addendum entered by Erum Lewis 07/17/24 11:47: SARAHI GIRALDOA IS FOLLOWING IN CASE PT NEEDS SERVICES AT DC Original Note: PT REPORTS HE LIVES WITH HIS AND IS INDEPENDENT WITH CARE PT HAS NO DME AND NO SERVICES HE WILL COMPLETE A HCP TODAY NAMING HIS , SHERITA, THE AGENT PCP: DARYN MARTINEZ IMM DELIVERED DCP: HOME ? [facility] TO TRANSPORT
[2024-07-17 11:13] LABS: Glucose, Whole Blood 114 mg/dL (60-115)
[2024-07-17] MEDS: Sodium Hypochlorite 0.125% 473 ML SOLUTION 1 APPL TOPICAL (14:19)
--- NOTE | 2024-07-17 14:32 | P.CONIM_ITS ---
History of Present Illness Data of Consult Service Date: 07/17/24 Primary Care Provider: Shaheed Cyr MD HPI Reason for consult: Medical care A 53 years old male with PMH of DMII, HLD, Atrial arrythmia who presented to ED with worsening left foot wound. The patient was treated for the wound for weeks at [facility] with no improvement as he left AMA and did not follow. He was seen by Podiatry who recommended him to go to ED for dibrediment. No chest pain, palpitations, SOB, nausea, vomiting, diarrhea or urinary symptoms. left foot x-ray showed evidence of a healing left 5th metatarsal fracture that could be evidence of osteomyelitis.elevated ESR of 72, CRP of 12.24 Noticed to have hypomagnesemia as well Admitted for surgical team for debridement. Hospitalist team asked to evaluate for medical problems. Review of Systems 2 Review of Systems: No fever, chills or weakness No chest pain, palpitation No shortness of breath or coughing No abdominal pain, nausea or vomiting No urinary symptoms No any rash or wounds PMFSH Medical History HLD (hyperlipidemia) Type 2 diabetes mellitus Social History Household Members: Spouse Housing: Apartment Alcohol intake: current Alcohol intake frequency: a few times a week Patient Tobacco Use Status: Former Tobacco user service: No Meds Allergies Allergy/AdvReac Type Severity Reaction Status Date / Time thiopental [SODIUM PENTOTHAL] Allergy Severe BECOMES Verified 07/16/24 13:56 VIOLENT morphine Allergy Unknown Unknown Verified 07/16/24 13:56 Sodium pent Allergy Unknown Unknown Uncoded 06/13/24 23:31 Active Medications: Current Medications Acetaminophen (Acetaminophen 325 Mg Tablet) 650 mg PO Q6H PRN PRN Reason: Pain, Mild 1-3,fever,headache Atenolol (Atenolol 50 Mg Tablet) 50 mg PO BID [facility]; Protocol Last Admin: 07/17/24 08:26 Dose: 50 mg Atorvastatin Calcium (Atorvastatin Calcium 40 Mg Tablet) 40 mg PO DAILY [facility] Calcium Carbonate (Calcium Carbonate 750 Mg Tab.Chew) 750 mg PO Q4H PRN PRN Reason: Heartburn Digoxin (Digoxin 0.125 Mg Tablet) 0.125 mg PO BEDTIME [facility]; Protocol Furosemide (Furosemide 20 Mg Tablet) 20 mg PO DAILY [facility]; Protocol Piperacillin Sod/Tazobactam (Sod 3.375 gm/ Sodium Chloride) 50 mls @ 100 mls/hr IV Q6H [facility] Last Infusion: 07/17/24 13:05 Dose: Infused Insulin Glargine (Insulin Glargine,Hum.Rec.Anlog 100 Unit/Ml 10 Ml Vial) 35 unit SUBCUT BEDTIME [facility] Ketorolac Tromethamine (Ketorolac Tromethamine 15 Mg/Ml Vial) 15 mg IVPUSH RQ6H PRN PRN Reason: Pain, Severe (Pain Scale 7-10) Last Admin: 07/17/24 09:36 Dose: 15 mg Loratadine (Loratadine 10 Mg Tablet) 10 mg PO DAILY [facility] Magnesium Hydroxide (Milk Of Magnesia 30 Ml Oral.Susp) 30 ml PO DAILY PRN PRN Reason: Constipation Melatonin (Melatonin 3 Mg Tablet) 6 mg PO BEDTIME PRN PRN Reason: Insomnia Metformin HCl (Metformin Hcl 1,000 Mg Tablet) 1,000 mg PO BID [facility] Last Admin: 07/17/24 08:26 Dose: 1,000 mg Oxycodone HCl (Oxycodone Hcl Immed Release 5 Mg Tablet) 10 mg PO RQ6H PRN PRN Reason: Pain, Moderate(Pain Scale 4-6) Last Admin: 07/17/24 12:05 Dose: 10 mg Sodium Chloride (0.9 % Sodium Chloride Flush 3 Ml Syringe) 3 ml IVFLUSH QSHIFT [facility] Last Admin: 07/17/24 08:24 Dose: 3 ml Sodium Hypochlorite (Sodium Hypochlorite 0.125% 473 Ml Solution) 1 appl TOPICAL DAILY [facility] Last Admin: 07/17/24 14:19 Dose: 1 appl Trazodone HCl (Trazodone Hcl 100 Mg Tablet) 100 mg PO BEDTIME PRN PRN Reason: Insomnia Verapamil HCl (Verapamil Hcl Sr 180 Mg Tablet.Er) 180 mg PO DAILY@1700 [facility]; Protocol Home Medications ?Medication ?Instructions ?Recorded ?Confirmed ?Last Taken ?Type blood sugar diagnostic (FreeStyle #10 ea 07/08/23 Unknown History Lite Strips) atorvastatin 40 mg tablet 40 mg PO DAILY 07/16/24 07/16/24 07/16/24 History cetirizine 10 mg tablet 10 mg PO DAILY 07/16/24 07/16/24 07/16/24 History digoxin 125 mcg (0.125 mg) tablet 125 mcg PO BEDTIME 07/16/24 07/16/24 07/15/24 History furosemide 20 mg tablet 20 mg PO DAILY 07/16/24 07/16/24 07/16/24 History insulin glargine 100 unit/mL (3 50 unit subcut BEDTIME 07/16/24 07/16/24 07/15/24 History mL) subcutaneous pen (Lantus Solostar U-100 Insulin) semaglutide 0.25 mg or 0.5 mg (2 0.5 mg subcut APONTE 07/16/24 07/16/24 07/11/24 History mg/3 mL) subcutaneous pen injector (Ozempic) sulfamethoxazole 800 1 tab PO BID 07/16/24 07/16/24 07/16/24 History mg-trimethoprim 160 mg tablet trazodone 100 mg tablet 100 mg PO BEDTIME PRN Insomnia 07/16/24 07/16/24 Unknown History upadacitinib 15 mg tablet,extended 15 mg PO DAILY 07/16/24 07/16/24 07/16/24 History release 24 hr (Rinvoq) verapamil 180 mg tablet,extended 180 mg PO DAILY 07/16/24 07/16/24 07/16/24 History release Physical Exam 2 Vital Signs and Narrative: Vital Signs: Last Vital Signs Temp 98.1 F 07/17/24 11:02 Pulse 92 07/17/24 11:02 Resp 18 07/17/24 11:02 BP 126/89 07/17/24 11:02 Pulse Ox 96 07/17/24 11:02 O2 Del Method Room Air 07/17/24 11:02 BMI result Body Mass Index 31.2 Const: Other: Constitutional : Awake, interactive, not in distress Neck : Normal inspection, Supple Cardiovascular : RRR, no JVP, no lower extremity edema Respiratory : good bilateral air entry, no crackles, wheezes or rhonchi Gastrointestinal: soft, lax, Normal bowel sounds, Non tender Skin : Warm, Dry, Left plantar foot wound at the base of the small toe open wound down deep to fat tissue about 2x6 cm and grayish necrotic tissue. present peripheral pulses and sensation Neurological : Alert & oriented x3, No focal deficit Extrem: Other: Results Labs 07/16/24 14:14 07/18/24 06:50 Labs: Laboratory Results - last 24 hr 07/16/24 07/16/24 07/16/24 13:58 14:13 14:14 MCV 88.0 MCH 30.2 MCHC 34.4 RDW 13.3 Plt Count 185 MPV 10.4 Immature Gran % (Auto) 0.9 H Neut % (Auto) 55.1 Lymph % (Auto) 24.9 Bleckley % (Auto) 17.4 H Eos % (Auto) 1.3 Baso % (Auto) 0.4 Lymph # (Auto) 2.0 Bleckley # (Auto) 1.4 H Eos # (Auto) 0.1 Baso # (Auto) 0.0 Abs Immat Gran (auto) 0.07 H Absolute Neuts (auto) 4.5 Absolute Nucleated RBC 0.000 Nucleated RBC % (auto) 0.0 Smear Tech's Comments VERIFIED ESR 72 H PT 12.3 INR 1.1 Anion Gap 16 Estim Creat Clear Calc 131.8 Estimated GFR > 60 POC Glucose 108 Random Glucose 105 Lactic Acid 1.8 Calcium 9.1 Magnesium 1.2 L* C-Reactive Protein 12.24 H 07/17/24 07/17/24 07:22 11:04 MCV MCH MCHC RDW Plt Count MPV Immature Gran % (Auto) Neut % (Auto) Lymph % (Auto) Bleck[place] % (Auto) Eos % (Auto) Baso % (Auto) Lymph # (Auto) [place]ck[place] # (Auto) Eos # (Auto) Baso # (Auto) Abs Immat Gran (auto) Absolute Neuts (auto) Absolute Nucleated RBC Nucleated RBC % (auto) Smear Tech's Comments ESR PT INR Anion Gap Estim Creat Clear Calc Estimated GFR POC Glucose 106 114 Random Glucose Lactic Acid Calcium Magnesium C-Reactive Protein Imaging Radiologist's Impressions: Impressions Foot X-Ray 07/16/24 14:45 IMPRESSION: Soft tissue defect overlying the 5th proximal phalanx. There is a healing fracture of the proximal phalanx of the 5th toe, which may represent a pathologic fracture related to osteomyelitis if there is no history of trauma. Clinical correlation is recommended. Electronically signed by: Shaheed Hill MD 07/16/2024 03:09 PM [facility] Assessment and Plan (1) Diabetic foot infection: Status: Acute (2) Foot osteomyelitis, left: Status: Acute Plan A 53 years old male with PMH of DMII, HLD, Atrial arrythmia who presented to ED with worsening left foot wound. Left foot diabetic wound infection Concerning of OM with abnormal XR foot showing healing fracture Elevated CRP and ESR on Vancomycin and Zosyn ID pending Surgery following for debridement Hyperglycemia 2/2 Type 2 Diabetes Start Lantus SSI insulin diabetic diet HLD Statin atrial arrythmia (afib?) continue Digoxine and Verapamil Thank you for the consult will continue to follow with you
[2024-07-17 15:30] LABS: Glucose, Whole Blood 106 mg/dL (60-115)
--- NOTE | 2024-07-17 16:32 | P.PNGS_ITS ---
Subjective Subjective Date of Service: 07/17/24 Interval history: Patient is still complaining of pain but improved. Denies any fevers or chills. Physical Exam 2 Vital Signs: Vital Signs: Last Vital Signs Temp 98.1 F 07/17/24 15:10 Pulse 60 07/17/24 15:10 Resp 18 07/17/24 15:10 BP 113/65 07/17/24 15:10 Pulse Ox 96 07/17/24 15:10 O2 Del Method Room Air 07/17/24 15:10 BMI result Body Mass Index 31.2 Skin: Other: Left plantar toe area looks good healthier less odor. There is little necrotic tissue centrally but generally looks good. No significant erythema. Objective Data Active Medications Acetaminophen (Acetaminophen 325 Mg Tablet) 650 mg PO Q6H PRN PRN Reason: Pain, Mild 1-3,fever,headache Atenolol (Atenolol 50 Mg Tablet) 50 mg PO BID [facility]; Protocol Last Admin: 07/17/24 08:26 Dose: 50 mg Documented By: ROSSANA Atorvastatin Calcium (Atorvastatin Calcium 40 Mg Tablet) 40 mg PO DAILY [facility] Calcium Carbonate (Calcium Carbonate 750 Mg Tab.Chew) 750 mg PO Q4H PRN PRN Reason: Heartburn Digoxin (Digoxin 0.125 Mg Tablet) 0.125 mg PO BEDTIME [facility]; Protocol Furosemide (Furosemide 20 Mg Tablet) 20 mg PO DAILY [facility]; Protocol Piperacillin Sod/Tazobactam (Sod 3.375 gm/ Sodium Chloride) 50 mls @ 100 mls/hr IV Q6H [facility] Last Infusion: 07/17/24 13:05 Dose: Infused Documented By: ROSSANA Insulin Glargine (Insulin Glargine,Hum.Rec.Anlog 100 Unit/Ml 10 Ml Vial) 35 unit SUBCUT BEDTIME [facility] Insulin Human Lispro (Insulin Lispro 100 Unit/Ml 3 Ml Vial) 0 unit SUBCUT QIDACHS [facility]; Protocol Ketorolac Tromethamine (Ketorolac Tromethamine 15 Mg/Ml Vial) 15 mg IVPUSH RQ6H PRN PRN Reason: Pain, Severe (Pain Scale 7-10) Last Admin: 07/17/24 09:36 Dose: 15 mg Documented By: ROSSANA Loratadine (Loratadine 10 Mg Tablet) 10 mg PO DAILY [facility] Magnesium Hydroxide (Milk Of Magnesia 30 Ml Oral.Susp) 30 ml PO DAILY PRN PRN Reason: Constipation Melatonin (Melatonin 3 Mg Tablet) 6 mg PO BEDTIME PRN PRN Reason: Insomnia Oxycodone HCl (Oxycodone Hcl Immed Release 5 Mg Tablet) 10 mg PO RQ6H PRN PRN Reason: Pain, Moderate(Pain Scale 4-6) Last Admin: 07/17/24 12:05 Dose: 10 mg Documented By: ROSSANA Pharmacy Consult (Consult Rx Vancomycin Dosing) 1 each MISCELLANE DAILY PRN PRN Reason: Consult order Sodium Chloride (0.9 % Sodium Chloride Flush 3 Ml Syringe) 3 ml IVFLUSH QSHIFT [facility] Last Admin: 07/17/24 16:26 Dose: 3 ml Documented By: KINGORRZ Sodium Hypochlorite (Sodium Hypochlorite 0.125% 473 Ml Solution) 1 appl TOPICAL DAILY [facility] Last Admin: 07/17/24 14:19 Dose: 1 appl Documented By: ROSSANA Trazodone HCl (Trazodone Hcl 100 Mg Tablet) 100 mg PO BEDTIME PRN PRN Reason: Insomnia Verapamil HCl (Verapamil Hcl Sr 180 Mg Tablet.Er) 180 mg PO DAILY@1700 [facility]; Protocol Labs 07/16/24 14:14 07/16/24 14:13 Labs: Laboratory Results - last 24 hr 07/16/24 07/17/24 07/17/24 13:58 07:22 11:04 POC Glucose 108 106 114 07/17/24 15:12 POC Glucose 106 Microbiology Microbiology Results: Microbiology 07/16/24 18:19 Gram Stain - Final Foot Left Routine Culture - Preliminary Culture in progress. Procedures Date of Service Date of Service: 07/17/24 Progress Note: A&P Assessment and plan (1) Diabetic foot infection: Status: Acute Assessment and Plan: 53-year-old male diabetic with diabetic left plantar foot wound. Looks better smells better. At this point continue with IV antibiotics and follow up on his microbiology. 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 antibiotics for outpatient care and outpatient care wound care clinic where we can debride and offload this wound more. We will check his hemoglobin A1c. Would be good to see if he has osteomyelitis of the toe foot area with an MRI however secondary to his nerve stimulator he can not have the MRI carried out. Continue with dressing changes as above and appreciate medical team help Time Spent With Patient Time: Total time managing care of this patient today ____ minutes. Quality Stroke Does the patient have a stroke diagnosis?: No VTE Prior VTE?: No VTE Risk Level:: Surgical - low VTE Device Contraindication: N/A - Device Ordered VTE Drug Contraindication: Treatment Not Indicated
[2024-07-17] MEDS: VerapamiL HCL SR 180 MG TABLET.ER PO (16:33)
[2024-07-17] MEDS: vancomycin HCL 1,250 MG in 0.9 % Sodium Chloride 250 ML 166.67 MG IV (18:55)
[2024-07-17] MEDS: Digoxin 0.125 MG TABLET PO (20:07)
[2024-07-17] MEDS: Insulin Lispro 100 UNIT/ML 3 ML VIAL SUBCUT (20:14)
[2024-07-17] MEDS: Insulin Glargine,Hum.rec.anlog 100 UNIT/ML 10 ML VIAL 35 UNIT SUBCUT (20:14)
[2024-07-17 20:15] LABS: Glucose, Whole Blood 153 mg/dL (60-115)
--- NOTE | 2024-07-18 | ECG_ITS ---
Test Reason : Baseline, hx arrythmia Blood Pressure : */* mmHG Vent. Rate : 65 BPM Atrial Rate : * BPM P-R Int : * ms QRS Dur : 110 ms QT Int : 408 ms P-R-T Axes : * 63 63 degrees QTcB Int : 424 ms Atrial fibrillation Nonspecific ST abnormality Abnormal ECG When compared with ECG of 18-Jul-2015 18:08, Atrial fibrillation has replaced Sinus rhythm Referred By: Jas Vargas Electronically Signed By: JOSE ALFREDO MARIA MD
[2024-07-18 03:35] VITALS: BP 120/73; PULSE 71; RESP 18; TEMP 36.1; O2SAT 94
[2024-07-18] MEDS: Piperacillin Sodium/Tazobactam 3.375 GM in 0.9 % Sodium Chloride 50 ML IV ×4 (04:07→20:39)
[2024-07-18] MEDS: vancomycin HCL 1,250 MG in 0.9 % Sodium Chloride 250 ML 166.67 MG IV (06:00)
[2024-07-18 07:02] VITALS: BP 141/82; PULSE 70; RESP 18; TEMP 36.6; O2SAT 96
[2024-07-18 07:27] LABS: Glucose, Whole Blood 157 mg/dL (60-115)
[2024-07-18 08:26] LABS: Estimated Average Glucose 148 mg/dL; Hemoglobin A1c % 6.8 % (<6.0); Total Hemoglobin (HGBA1C) 2615.8736 umol/L
[2024-07-18 08:28] LABS: Anion Gap 12 (12-20); Blood Urea Nitrogen 17 mg/dL (9-16); Calcium 8.6 mg/dL (8.4-10.2); Carbon Dioxide 22 mmol/L (22-29); Chloride 106 mmol/L (96-108); Creatinine Clr Calc Pharmacy 113.4; Estimated Glomerular Filt Rate > 60; Glucose Random 160 mg/dL (60-115); Magnesium 1.5 mg/dL (1.6-2.6); Potassium 4.4 mmol/L (3.3-5.1); Sodium 136 mmol/L (135-145)
[2024-07-18] MEDS: Insulin Lispro 100 UNIT/ML 3 ML VIAL SUBCUT (08:49)
[2024-07-18] MEDS: atenoloL 50 MG TABLET PO ×2 (08:49→20:36)
[2024-07-18] MEDS: Atorvastatin Calcium 40 MG TABLET PO (08:49)
[2024-07-18] MEDS: Furosemide 20 MG TABLET PO (08:49)
[2024-07-18] MEDS: Loratadine 10 MG TABLET PO (08:49)
[2024-07-18 10:56] VITALS: BP 151/83; PULSE 70; RESP 18; TEMP 36.2; O2SAT 96
[2024-07-18 11:33] LABS: Glucose, Whole Blood 94 mg/dL (60-115)
--- NOTE | 2024-07-18 11:54 | P.PNIM_ITS ---
Subjective Subjective Date of Service: 07/18/24 Interval History: seen and evaluated this morning feels better overall denies any fever or chills Review of Systems Review of Systems: Yes all other systems are reviewed and are negative Physical Exam 2 Vital Signs: Vital Signs: Last Vital Signs Temp 97.1 F 07/18/24 10:56 Pulse 70 07/18/24 10:56 Resp 18 07/18/24 10:56 BP 151/83 H 07/18/24 10:56 Pulse Ox 96 07/18/24 10:56 O2 Del Method Room Air 07/18/24 10:56 BMI result Body Mass Index 31.2 Const: Other: Constitutional : Awake, interactive, not in distress Neck : Normal inspection, Supple Cardiovascular : RRR, no JVP, no lower extremity edema Respiratory : good bilateral air entry, no crackles, wheezes or rhonchi Gastrointestinal: soft, lax, Normal bowel sounds, Non tender Skin : Warm, Dry, Left plantar foot wound at the base of the small toe open wound down deep to fat tissue about 2x6 cm and grayish necrotic tissue. present peripheral pulses and sensation Neurological : Alert & oriented x3, No focal deficit Objective Data Active Medications Acetaminophen (Acetaminophen 325 Mg Tablet) 650 mg PO Q6H PRN PRN Reason: Pain, Mild 1-3,fever,headache Atenolol (Atenolol 50 Mg Tablet) 50 mg PO BID [facility]; Protocol Last Admin: 07/18/24 08:49 Dose: 50 mg Documented By: JEFFY Atorvastatin Calcium (Atorvastatin Calcium 40 Mg Tablet) 40 mg PO DAILY [facility] Last Admin: 07/18/24 08:49 Dose: 40 mg Documented By: JEFFY Calcium Carbonate (Calcium Carbonate 750 Mg Tab.Chew) 750 mg PO Q4H PRN PRN Reason: Heartburn Digoxin (Digoxin 0.125 Mg Tablet) 0.125 mg PO BEDTIME [facility]; Protocol Last Admin: 07/17/24 20:07 Dose: 0.125 mg Documented By: MARI Furosemide (Furosemide 20 Mg Tablet) 20 mg PO DAILY [facility]; Protocol Last Admin: 07/18/24 08:49 Dose: 20 mg Documented By: JEFFY Vancomycin HCl 1,250 mg/ (Sodium Chloride) 250 mls @ 166.667 mls/hr IV Q12H [facility] Last Infusion: 07/18/24 08:22 Dose: Infused Documented By: JEFFY Piperacillin Sod/Tazobactam (Sod 3.375 gm/ Sodium Chloride) 50 mls @ 100 mls/hr IV Q6H [facility] Last Infusion: 07/18/24 11:19 Dose: Infused Documented By: JEFFY Insulin Glargine (Insulin Glargine,Hum.Rec.Anlog 100 Unit/Ml 10 Ml Vial) 35 unit SUBCUT BEDTIME [facility] Last Admin: 07/17/24 20:14 Dose: 35 unit Documented By: MARI Insulin Human Lispro (Insulin Lispro 100 Unit/Ml 3 Ml Vial) 0 unit SUBCUT QIDACHS [facility]; Protocol Last Admin: 07/18/24 11:46 Dose: Not Given Documented By: JEFFY Non-Admin Reason: No Insulin Coverage Ketorolac Tromethamine (Ketorolac Tromethamine 15 Mg/Ml Vial) 15 mg IVPUSH RQ6H PRN PRN Reason: Pain, Severe (Pain Scale 7-10) Last Admin: 07/17/24 09:36 Dose: 15 mg Documented By: ROSSANA Loratadine (Loratadine 10 Mg Tablet) 10 mg PO DAILY [facility] Last Admin: 07/18/24 08:49 Dose: 10 mg Documented By: JEFFY Magnesium Hydroxide (Milk Of Magnesia 30 Ml Oral.Susp) 30 ml PO DAILY PRN PRN Reason: Constipation Melatonin (Melatonin 3 Mg Tablet) 6 mg PO BEDTIME PRN PRN Reason: Insomnia Oxycodone HCl (Oxycodone Hcl Immed Release 5 Mg Tablet) 10 mg PO Q4H PRN PRN Reason: Pain, Moderate(Pain Scale 4-6) Pharmacy Consult (Consult Rx Vancomycin Dosing) 1 each MISCELLANE DAILY PRN PRN Reason: Consult order Sodium Chloride (0.9 % Sodium Chloride Flush 3 Ml Syringe) 3 ml IVFLUSH QSHIFT [facility] Last Admin: 07/18/24 09:06 Dose: Not Given Documented By: JEFFY Non-Admin Reason: IV Running Sodium Hypochlorite (Sodium Hypochlorite 0.125% 473 Ml Solution) 1 appl TOPICAL DAILY [facility] Last Admin: 07/18/24 11:19 Dose: Not Given Documented By: JEFFY Non-Admin Reason: Med Not Available Trazodone HCl (Trazodone Hcl 100 Mg Tablet) 100 mg PO BEDTIME PRN PRN Reason: Insomnia Verapamil HCl (Verapamil Hcl Sr 180 Mg Tablet.Er) 180 mg PO DAILY@1700 [facility]; Protocol Last Admin: 07/17/24 16:33 Dose: 180 mg Documented By: LINWOOD Labs 07/16/24 14:14 07/18/24 06:50 Labs: Laboratory Results - last 24 hr 07/17/24 07/17/24 07/18/24 15:12 20:09 06:50 Anion Gap 12 Estim Creat Clear Calc 113.4 Estimated GFR > 60 POC Glucose 106 153 H Random Glucose 160 H Estimat Average Glucose 148 Hemoglobin A1c % 6.8 H Calcium 8.6 Magnesium 1.5 L 07/18/24 07/18/24 07/18/24 06:50 07:05 10:58 Anion Gap Estim Creat Clear Calc Estimated GFR POC Glucose 157 H 94 Random Glucose Estimat Average Glucose Hemoglobin A1c % Calcium Magnesium Cancelled Microbiology Microbiology Results: Microbiology 07/16/24 18:19 Gram Stain - Final Foot Left Routine Culture - Preliminary Staphylococcus aureus 07/16/24 14:12 Blood Culture - Preliminary Blood - Venous No growth after 24 hours. 07/16/24 14:24 Blood Culture - Preliminary Blood - Venous No growth after 24 hours. Assessment and Plan (1) Diabetic foot infection: Status: Acute Plan A 53 years old male with PMH of DMII, HLD, Atrial arrythmia who presented to ED with worsening left foot wound. Left foot diabetic wound infection Concerning of OM with abnormal XR foot showing healing fracture Elevated CRP and ESR adding more concerns of OM on Vancomycin and Zosyn for now ID pending Surgery following for debridement will likely need PICC line and 6 weeks of IV Abx Hyperglycemia 2/2 Type 2 Diabetes Start Lantus SSI insulin diabetic diet HLD Statin atrial arrythmia (afib?) continue Digoxine and Verapamil Thank you for the consult will continue to follow with you Quality Stroke Does the patient have a stroke diagnosis?: No VTE Prior VTE?: No VTE Risk Level:: Surgical - low VTE Device Contraindication: N/A - Device Ordered VTE Drug Contraindication: Treatment Not Indicated
[2024-07-18] MEDS: Magnesium Oxide 400 MG TABLET PO ×2 (13:57→18:30)
[2024-07-18] MEDS: oxyCODONE HCl Immed Release 5 MG TABLET 10 MG PO ×2 (13:57→20:43)
[2024-07-18 15:10] VITALS: BP 127/83; PULSE 80; RESP 18; TEMP 36.3; O2SAT 96
[2024-07-18 15:32] LABS: Glucose, Whole Blood 115 mg/dL (60-115)
[2024-07-18] MEDS: VerapamiL HCL SR 180 MG TABLET.ER PO (16:14)
[2024-07-18 17:06] LABS: Vancomycin Random 14.9 mcg/mL (15-20)
[2024-07-18] MEDS: vancomycin HCL 1,000 MG in 0.9 % Sodium Chloride 250 ML 270 MG IV (18:31)
[2024-07-18 19:17] VITALS: BP 104/73; PULSE 62; RESP 18; TEMP 36.1; O2SAT 96
[2024-07-18] MEDS: diphenhydrAMINE HCL 25 MG CAPSULE PO (20:36)
[2024-07-18 20:37] LABS: Glucose, Whole Blood 126 mg/dL (60-115)
[2024-07-18] MEDS: Digoxin 0.125 MG TABLET PO (20:40)
[2024-07-18] MEDS: Insulin Glargine,Hum.rec.anlog 100 UNIT/ML 10 ML VIAL 35 UNIT SUBCUT (20:45)
[2024-07-18] MEDS: 0.9 % Sodium Chloride Flush 3 ML SYRINGE IVFLUSH (20:45)
[2024-07-18 23:09] VITALS: BP 122/79; PULSE 64; RESP 18; TEMP 36.2; O2SAT 94
[2024-07-19] MEDS: oxyCODONE HCl Immed Release 5 MG TABLET 10 MG PO ×4 (01:20→18:19)
[2024-07-19] MEDS: diphenhydrAMINE HCL 50 MG/ML VIAL IVPUSH (01:49)
[2024-07-19] MEDS: Piperacillin Sodium/Tazobactam 3.375 GM in 0.9 % Sodium Chloride 50 ML IV ×2 (02:15→09:07)
[2024-07-19 03:01] VITALS: BP 127/81; PULSE 64; RESP 18; TEMP 36.1; O2SAT 96
[2024-07-19] MEDS: vancomycin HCL 1,000 MG in 0.9 % Sodium Chloride 250 ML 270 MG IV (06:18)
[2024-07-19 06:44] LABS: Estimated Glomerular Filt Rate > 60
[2024-07-19 07:07] VITALS: BP 126/71; PULSE 70; RESP 21; TEMP 36.4; O2SAT 95
[2024-07-19 07:12] LABS: Glucose, Whole Blood 94 mg/dL (60-115)
--- NOTE | 2024-07-19 08:08 | PM.PNGS ---
Subjective Subjective Date of Service: 07/19/24 Interval history: Has pain on the left foot He says redness has improved significantly Physical Exam Vital Signs: Vital Signs: Last Vital Signs Temp 97.6 F 07/19/24 07:07 Pulse 70 07/19/24 07:07 Resp 21 H 07/19/24 07:07 BP 126/71 07/19/24 07:07 Pulse Ox 95 07/19/24 07:07 O2 Del Method Room Air 07/19/24 07:07 BMI result Body Mass Index 31.2 Const: General: comfortable and no acute distress Resp: Effort & Inspection: normal respiratory effort Cardio: Rate: regular rate Extrem: Other: Open wound, about 1.5 cm, plantar aspect left foot laterally at the forefoot area, some mild cellulitis of the foot Objective Data Active Medications Acetaminophen (Acetaminophen 325 Mg Tablet) 650 mg PO Q6H PRN PRN Reason: Pain, Mild 1-3,fever,headache Atenolol (Atenolol 50 Mg Tablet) 50 mg PO BID [facility]; Protocol Last Admin: 07/18/24 20:36 Dose: 50 mg Documented By: MYKE Atorvastatin Calcium (Atorvastatin Calcium 40 Mg Tablet) 40 mg PO DAILY [facility] Last Admin: 07/18/24 08:49 Dose: 40 mg Documented By: JEFFY Calcium Carbonate (Calcium Carbonate 750 Mg Tab.Chew) 750 mg PO Q4H PRN PRN Reason: Heartburn Digoxin (Digoxin 0.125 Mg Tablet) 0.125 mg PO BEDTIME [facility]; Protocol Last Admin: 07/18/24 20:40 Dose: 0.125 mg Documented By: MYKE Furosemide (Furosemide 20 Mg Tablet) 20 mg PO DAILY [facility]; Protocol Last Admin: 07/18/24 08:49 Dose: 20 mg Documented By: JEFFY Piperacillin Sod/Tazobactam (Sod 3.375 gm/ Sodium Chloride) 50 mls @ 100 mls/hr IV Q6H [facility] Last Infusion: 07/19/24 03:15 Dose: Infused Documented By: CARLA Vancomycin HCl 1,000 mg/ (Sodium Chloride) 270 mls @ 270 mls/hr IV Q12H [facility] Last Admin: 07/19/24 06:18 Dose: 270 mls/hr Documented By: CARLA Insulin Glargine (Insulin Glargine,Hum.Rec.Anlog 100 Unit/Ml 10 Ml Vial) 35 unit SUBCUT BEDTIME [facility] Last Admin: 07/18/24 20:45 Dose: 35 unit Documented By: MYKE Insulin Human Lispro (Insulin Lispro 100 Unit/Ml 3 Ml Vial) 0 unit SUBCUT QIDACHS [facility]; Protocol Last Admin: 07/19/24 07:13 Dose: Not Given Documented By: ABELARDO Non-Admin Reason: No Insulin Coverage Ketorolac Tromethamine (Ketorolac Tromethamine 15 Mg/Ml Vial) 15 mg IVPUSH RQ6H PRN PRN Reason: Pain, Severe (Pain Scale 7-10) Last Admin: 07/17/24 09:36 Dose: 15 mg Documented By: ROSSANA Loratadine (Loratadine 10 Mg Tablet) 10 mg PO DAILY [facility] Last Admin: 07/18/24 08:49 Dose: 10 mg Documented By: JEFFY Magnesium Hydroxide (Milk Of Magnesia 30 Ml Oral.Susp) 30 ml PO DAILY PRN PRN Reason: Constipation Magnesium Oxide (Magnesium Oxide 400 Mg Tablet) 400 mg PO BIDPC [facility] Last Admin: 07/18/24 18:30 Dose: 400 mg Documented By: JEFFY Melatonin (Melatonin 3 Mg Tablet) 6 mg PO BEDTIME PRN PRN Reason: Insomnia Oxycodone HCl (Oxycodone Hcl Immed Release 5 Mg Tablet) 10 mg PO Q4H PRN PRN Reason: Pain, Moderate(Pain Scale 4-6) Last Admin: 07/19/24 01:20 Dose: 10 mg Documented By: CARLA Pharmacy Consult (Consult Rx Vancomycin Dosing) 1 each MISCELLANE DAILY PRN PRN Reason: Consult order Sodium Chloride (0.9 % Sodium Chloride Flush 3 Ml Syringe) 3 ml IVFLUSH QSHIFT [facility] Last Admin: 07/18/24 20:45 Dose: 3 ml Documented By: MYKE Sodium Hypochlorite (Sodium Hypochlorite 0.125% 473 Ml Solution) 1 appl TOPICAL DAILY [facility] Last Admin: 07/18/24 11:19 Dose: Not Given Documented By: JEFFY Non-Admin Reason: Med Not Available Trazodone HCl (Trazodone Hcl 100 Mg Tablet) 100 mg PO BEDTIME PRN PRN Reason: Insomnia Verapamil HCl (Verapamil Hcl Sr 180 Mg Tablet.Er) 180 mg PO DAILY@1700 [facility]; Protocol Last Admin: 07/18/24 16:14 Dose: 180 mg Documented By: JEFFY Labs 07/16/24 14:14 07/19/24 05:42 Labs: Laboratory Results - last 24 hr 07/18/24 07/18/24 07/18/24 06:50 06:50 10:58 Hold Purple Top Anion Gap 12 Estim Creat Clear Calc 113.4 Estimated GFR > 60 POC Glucose 94 Random Glucose 160 H Estimat Average Glucose 148 Hemoglobin A1c % 6.8 H Calcium 8.6 Magnesium 1.5 L Cancelled Random Vancomycin 07/18/24 07/18/24 07/18/24 15:26 16:08 19:15 Hold Purple Top Anion Gap Estim Creat Clear Calc Estimated GFR POC Glucose 115 126 H Random Glucose Estimat Average Glucose Hemoglobin A1c % Calcium Magnesium Random Vancomycin 14.9 L 07/19/24 07/19/24 05:42 06:59 Hold Purple Top SEE NOTE Anion Gap Estim Creat Clear Calc 104.0 Estimated GFR > 60 POC Glucose 94 Random Glucose Estimat Average Glucose Hemoglobin A1c % Calcium Magnesium Random Vancomycin Microbiology Microbiology Results: Microbiology 07/16/24 18:19 Gram Stain - Final Foot Left Routine Culture - Final Methicillin Res Staph Aureus 07/16/24 14:12 Blood Culture - Preliminary Blood - Venous No growth after 48 hours. 07/16/24 14:24 Blood Culture - Preliminary Blood - Venous No growth after 48 hours. Procedures Date of Service Date of Service: 07/19/24 Progress Note: A&P Assessment and plan (1) Diabetic foot infection: Status: Acute Assessment and Plan: He has an open wound, left foot Likely to have osteomyelitis, he is unable undergo an MRI Long-term IV antibiotics planned He is scheduled for a PICC line today Wound care Time Spent With Patient Time: Total time managing care of this patient today ____ minutes. Quality Stroke Does the patient have a stroke diagnosis?: No VTE Prior VTE?: No VTE Risk Level:: Surgical - low VTE Device Contraindication: N/A - Device Ordered VTE Drug Contraindication: Treatment Not Indicated
[2024-07-19] MEDS: Atorvastatin Calcium 40 MG TABLET PO (08:55)
[2024-07-19] MEDS: Loratadine 10 MG TABLET PO (08:55)
[2024-07-19 08:56] VITALS: BP 105/61
[2024-07-19] MEDS: Furosemide 20 MG TABLET PO (08:56)
[2024-07-19] MEDS: atenoloL 50 MG TABLET PO (09:02)
[2024-07-19] MEDS: 0.9 % Sodium Chloride Flush 3 ML SYRINGE IVFLUSH ×2 (09:03→17:53)
[2024-07-19] MEDS: Magnesium Oxide 400 MG TABLET PO ×2 (09:03→17:47)
[2024-07-19 10:54] VITALS: BP 113/78; PULSE 80; RESP 17; TEMP 36.4; O2SAT 96
[2024-07-19 10:54] LABS: Glucose, Whole Blood 86 mg/dL (60-115)
[2024-07-19] MEDS: predniSONE 20 MG TABLET 60 MG PO (11:10)
[2024-07-19] MEDS: Sodium Hypochlorite 0.125% 473 ML SOLUTION 1 APPL TOPICAL (11:10)
--- NOTE | 2024-07-19 12:06 | P.PNIM_ITS ---
Subjective Subjective Date of Service: 07/20/24 Interval History: seen and evaluated this morning feels better overall waiting PICC line placement denies any fever or chills Review of Systems Review of Systems: Yes all other systems are reviewed and are negative Physical Exam 2 Vital Signs: Vital Signs: Last Vital Signs Temp 97.6 F 07/19/24 10:54 Pulse 80 07/19/24 10:54 Resp 17 07/19/24 10:54 BP 113/78 07/19/24 10:54 Pulse Ox 96 07/19/24 10:54 O2 Del Method Room Air 07/19/24 10:54 BMI result Body Mass Index 31.2 Const: Other: Constitutional : Awake, interactive, not in distress Neck : Normal inspection, Supple Cardiovascular : RRR, no JVP, no lower extremity edema Respiratory : good bilateral air entry, no crackles, wheezes or rhonchi Gastrointestinal: soft, lax, Normal bowel sounds, Non tender Skin : Warm, Dry, Left plantar foot wound at the base of the small toe open wound down deep to fat tissue about 2x6 cm and grayish necrotic tissue. present peripheral pulses and sensation Neurological : Alert & oriented x3, No focal deficit Objective Data Active Medications Acetaminophen (Acetaminophen 325 Mg Tablet) 650 mg PO Q6H PRN PRN Reason: Pain, Mild 1-3,fever,headache Atenolol (Atenolol 50 Mg Tablet) 50 mg PO BID [facility]; Protocol Last Admin: 07/19/24 09:02 Dose: 50 mg Documented By: ANASTASIA Atorvastatin Calcium (Atorvastatin Calcium 40 Mg Tablet) 40 mg PO DAILY [facility] Last Admin: 07/19/24 08:55 Dose: 40 mg Documented By: ANASTASIA Calcium Carbonate (Calcium Carbonate 750 Mg Tab.Chew) 750 mg PO Q4H PRN PRN Reason: Heartburn Digoxin (Digoxin 0.125 Mg Tablet) 0.125 mg PO BEDTIME [facility]; Protocol Last Admin: 07/18/24 20:40 Dose: 0.125 mg Documented By: MYKE Furosemide (Furosemide 20 Mg Tablet) 20 mg PO DAILY [facility]; Protocol Last Admin: 07/19/24 08:56 Dose: 20 mg Documented By: ANASTASIA Piperacillin Sod/Tazobactam (Sod 3.375 gm/ Sodium Chloride) 50 mls @ 100 mls/hr IV Q6H [facility] Last Infusion: 07/19/24 09:37 Dose: Infused Documented By: ABELARDO Vancomycin HCl 1,000 mg/ (Sodium Chloride) 270 mls @ 270 mls/hr IV Q12H [facility] Last Infusion: 07/19/24 07:18 Dose: Infused Documented By: ABELARDO Insulin Glargine (Insulin Glargine,Hum.Rec.Anlog 100 Unit/Ml 10 Ml Vial) 50 unit SUBCUT BEDTIME [facility] Insulin Human Lispro (Insulin Lispro 100 Unit/Ml 3 Ml Vial) 0 unit SUBCUT QIDACHS [facility]; Protocol Last Admin: 07/19/24 07:13 Dose: Not Given Documented By: ABELARDO Non-Admin Reason: No Insulin Coverage Ketorolac Tromethamine (Ketorolac Tromethamine 15 Mg/Ml Vial) 15 mg IVPUSH RQ6H PRN PRN Reason: Pain, Severe (Pain Scale 7-10) Last Admin: 07/17/24 09:36 Dose: 15 mg Documented By: ROSSANA Loratadine (Loratadine 10 Mg Tablet) 10 mg PO DAILY [facility] Last Admin: 07/19/24 08:55 Dose: 10 mg Documented By: ANASTASIA Magnesium Hydroxide (Milk Of Magnesia 30 Ml Oral.Susp) 30 ml PO DAILY PRN PRN Reason: Constipation Magnesium Oxide ([facility] 400 Mg [facility]t) [facility] Last Admin: 07/19/24 09:03 Dose: 400 mg Documented By: ANASTASIA Melatonin (Melatonin 3 Mg Tablet) 6 mg PO BEDTIME PRN PRN Reason: Insomnia Oxycodone HCl (Oxycodone Hcl Immed Release 5 Mg Tablet) 10 mg PO Q4H PRN PRN Reason: Pain, Moderate(Pain Scale 4-6) Last Admin: 07/19/24 08:59 Dose: 10 mg Documented By: ANASTASIA Pharmacy Consult (Consult Rx Vancomycin Dosing) 1 each MISCELLANE DAILY PRN PRN Reason: Consult order Prednisone (Prednisone 20 Mg Tablet) 60 mg PO DAILY [facility] Last Admin: 07/19/24 11:10 Dose: 60 mg Documented By: ABELARDO Sodium Chloride (0.9 % Sodium Chloride Flush 3 Ml Syringe) [facility] Last Admin: 07/19/24 09:03 Dose: 3 ml Documented By: ANASTASIA Sodium Hypochlorite (Sodium Hypochlorite 0.125% 473 Ml Solution) 1 appl TOPICAL DAILY [facility] Last Admin: 07/19/24 11:10 Dose: 1 appl Documented By: ABELARDO Trazodone HCl (Trazodone Hcl 100 Mg Tablet) 100 mg PO BEDTIME PRN PRN Reason: Insomnia Triamcinolone Acetonide (Triamcinolone Acet 0.1 % Oint 15 Gm Tube) 1 appl TOPICAL BID [facility] Verapamil HCl (Verapamil Hcl Sr 180 Mg Tablet.Er) 180 mg PO DAILY@1700 [facility]; Protocol Last Admin: 07/18/24 16:14 Dose: 180 mg Documented By: JEFFY Labs 07/16/24 14:14 07/19/24 05:42 Labs: Laboratory Results - last 24 hr 07/18/24 07/18/24 07/18/24 15:26 16:08 19:15 Hold Purple Top Estim Creat Clear Calc Estimated GFR POC Glucose 115 126 H Random Vancomycin 14.9 L 07/19/24 07/19/24 07/19/24 05:42 06:59 10:45 Hold Purple Top SEE NOTE Estim Creat Clear Calc 104.0 Estimated GFR > 60 POC Glucose 94 86 Random Vancomycin Microbiology Microbiology Results: Microbiology 07/16/24 18:19 Gram Stain - Final Foot Left Routine Culture - Final Methicillin Res Staph Aureus 07/16/24 14:12 Blood Culture - Preliminary Blood - Venous No growth after 48 hours. 07/16/24 14:24 Blood Culture - Preliminary Blood - Venous No growth after 48 hours. Assessment and Plan (1) Diabetic foot infection: Status: Acute (2) Foot osteomyelitis, left: Status: Acute Plan A 53 years old male with PMH of DMII, HLD, Atrial arrythmia who presented to ED with worsening left foot wound. Left foot diabetic wound infection complicated with OM in 5th metatarsal abnormal XR foot showing healing fracture Elevated CRP and ESR on Vancomycin and Zosyn for now ID pending Surgery following for debridement PICC line placement and 6 weeks of IV Daptomycin 1 gm daily (finish on 08/27) Hyperglycemia 2/2 Type 2 Diabetes Continue Lantus, SSI insulin diabetic diet Eczema on tapering dose steroids per dermatology for exacerbation HLD Statin Persistent Afib continue Digoxin and Verapamil, not on anticoagulation Thank you for the consult will continue to follow with you as needed Quality Stroke Does the patient have a stroke diagnosis?: No VTE Prior VTE?: No VTE Risk Level:: Surgical - low VTE Device Contraindication: N/A - Device Ordered VTE Drug Contraindication: Treatment Not Indicated
[2024-07-19] MEDS: Triamcinolone Acet 0.1 % Oint 15 GM TUBE 1 APPL TOPICAL (12:57)
--- NOTE | 2024-07-19 14:51 | HO.WOUND ---
Wound Consult: Chart Review 53yr old?male admitted to [facility] on 07/16/24 - See progress notes and H&P for detailed history.? Wound consult placed for Left Foot Diabetic Wound.?Chart review reveals patient is followed by General Surgery team with topical orders mentioned in Dr. Jones's note. Aliyain's wet-to-dry dressing daily and eventually would convert him to some type of p.o. antibiotics for outpatient care and outpatient care wound care clinic where we can debride and offload this wound more. We will check his hemoglobin A1c. Would be good to see if he has osteomyelitis of the toe foot area with an MRI however secondary to his nerve stimulator he can not have the MRI carried out. Continue with dressing changes as above and appreciate medical team help . Patient has not been seen by inpatient wound care nurse - will defer topical orders to General Surgery.
[2024-07-19 15:13] VITALS: BP 126/84; PULSE 59; RESP 16; TEMP 36.9; O2SAT 96
--- NOTE | 2024-07-19 16:08 | MHC.CM.PN ---
PICC line placement pending, then pt can discharge home with [facility], and [facility] services for 6 weeks IV antibiotics.
--- NOTE | 2024-07-19 17:13 | HO.PICC ---
PICC Line Insertion NPICC Diagnosis: Left foot wound Indication: watcher automat long goods antibiotics needed Pertinent Labs: reviewed Technique: Following informed consent including risks, benefits and alternatives and using sterile technique including cap and mask, sterile gown, glove and drape, the right arm was prepped and draped in the usual sterile fashion of full barrier technique with G. Following completion of [place] Protocol the skin and soft tissues were anesthetized with 1% Lidocaine plain. Using ultrasound guidance, right basilic vein access was obtained on first attempt. Over an 0.018 wire through peel-away sheath, a 4FR single lumen PASV PICC line was positioned. Catheter length is 44 CM internal length, 0 CM external length, for a total trimmed length of 44 CM. The procedure was performed in S272. Tip verification was performed by Clifton Rose with Patito 3CG. Tip located in SVC. Ultrasound was used to document vein patency and for needle entry. A formal ultrasound picture and cardiac rhythm strip was recorded. Vascular Linoleum Tile Layer has released the line for use and it is currently dressed with a StatLock, Tegaderm, and CHG disc. Verification has been performed for blood return and line patency. Arm Circumference: 34 CM Equipment: [employer] PowerPICC SOLO Catheter Type: 4FR single lumen PASV PICC Lot #: [id number]
[2024-07-19] MEDS: DAPTOmycin 1,000 MG in 0.9 % Sodium Chloride 50 ML 100 MG IV (17:41)
[2024-07-19] MEDS: VerapamiL HCL SR 180 MG TABLET.ER PO (17:47)
[2024-07-19 17:51] LABS: Glucose, Whole Blood 126 mg/dL (60-115)
[2024-07-19 17:55] VITALS: BP 138/91; PULSE 89
--- NOTE | 2024-07-20 09:44 | W.MHC.F2F ---
Service Date Service Date: 07/20/24 Encounter Date of encounter: 07/20/24 Reasons for Services Signs and symptoms assessed: Osteomyelitis chronic wound Left foot Reason for chcf: wound care ( Dakin's wet-to-dry dressing daily), medication management and teach disease management Reason for physical therapy: home safety and mobility and therapeutic exercises Homebound: Leaving the home is medically contraindicated at this time without the asist of a device and/or another person due th the listed conditions above and below. Reason homebound: unable to drive Certification: Based on the above findings, I certify that this patient is confined to the home and needs intermittent chcf care, physical therapy and/or speech therapy, or continues to need occupational therapy. The patient is under my care, and I have initiated the establishment of the plan of care. The patient will be followed by a physician who will periodically review the plan of care. Time Spent With Patient Time: Total time managing care of this patient today ____ minutes.
--- NOTE | 2024-07-20 09:50 | PM.DS ---
DS: Providers Provider Date of Service: 07/19/24 Date of admission: 07/16/24 18:38 Date of discharge: 07/19/24 Primary care physician: Shaheed Cyr MD Consults: 07/17/24 10:04 Consult to Wound Care Routine Reason for consultation: left foot diabetic ulcer 07/17/24 10:13 Consult to Hospitalist Routine Comment: Consulting Provider: [facility] [place] [place] Hospitalists Reason For Exam: med management and infectious disease issues 07/18/24 13:15 Consult to Infectious Diseases Routine Consulting Provider: [facility] [place] [place] Infectious Disease Center Reason for consultation: probable mrsa osteo of foot DS: Diagnosis Discharge Diagnosis (1) Diabetic foot infection: Status: Acute (2) Foot osteomyelitis, left: Status: Acute DS: Summary Hospital Course Hospital Course: Mazin Nichole is a 53 year old male diabetic who has hemoglobin A1c he says is in the 6 range who about a week admission developed a wound on the bottom of his foot. At that time it got worse pretty quickly and he went to the hospital at [facility] and was seen by an emergency room doc and the surgeon came to debride and relieve some pus. He was started on doxycycline but the wound continued to get worse and painful. He eventually saw Podiatry who debrided the foot and was very concerned about it being infected and told him to come to the emergency room right away. He denies any significant fevers or chills but he had been having significant pain on his left foot area. X-ray was carried out which showed potentially a healing fracture or maybe osteomyelitis. His white count was normal but his ESR was elevated and CRP as well. He was therefore admitted for IV antibiotics as he had significant cellulitis on the foot. He had good improvement with his cellulitis. He has significant improvement with his pain as well It was deemed that did not require further sharp debridement of the wound on the foot. Dressing changes were done with Dakin's solution He had a PICC line placed on July 19, 2024. In view of his significant improvement, he was discharged on that same day with plans for long-term IV antibiotic therapy. He is also to follow up with the [facility]. He was arranged to have daptomycin IV antibiotic treatment. Time Attestation Discharge Coordination Time (in mins): 30 min Quality: Safe Use of Opioids Does Pt have an Active Cancer Diagnosis on the Problem List?: No Quality: Stroke Does the patient have a stroke diagnosis?: No Physical Exam Vital Signs: Vital Signs: Last Vital Signs Temp 98.4 F 07/19/24 15:13 Pulse 89 07/19/24 17:55 Resp 16 07/19/24 15:13 BP 138/91 H 07/19/24 17:55 Pulse Ox 96 07/19/24 15:13 O2 Del Method Room Air 07/19/24 15:13 BMI result Body Mass Index 31.2 Const: General: comfortable and no acute distress Orientation/consciousness: patient oriented x3 Neck: Neck: Yes no lymphadenopathy Resp: Auscultation: clear to auscultation bilaterally Cardio: Rhythm: regular rhythm GI: Palpation (GI): Soft to palpation, nontender and no guarding Neuro: General: patient oriented x3 Extrem: Other: Ulcer, about 1.5 cm diameter, the left foot laterally at the forefoot area DS: Data Data Completed and Pending Labs on day of discharge: Laboratory Results - last 24 hr 07/16/24 07/16/24 07/16/24 13:58 14:13 14:14 WBC 8.2 RBC 3.67 L Hgb 11.1 L Hct 32.3 L MCV 88.0 MCH 30.2 MCHC 34.4 RDW 13.3 Plt Count 185 MPV 10.4 Immature Gran % (Auto) 0.9 H Neut % (Auto) 55.1 Lymph % (Auto) 24.9 [place] % (Auto) 17.4 H Eos % (Auto) 1.3 Baso % (Auto) 0.4 Lymph # (Auto) 2.0 [place] # (Auto) 1.4 H Eos # (Auto) 0.1 Baso # (Auto) 0.0 Abs Immat Gran (auto) 0.07 H Absolute Neuts (auto) 4.5 Absolute Nucleated RBC 0.000 Nucleated RBC % (auto) 0.0 Smear Tech's Comments VERIFIED ESR 72 H PT 12.3 INR 1.1 Sodium 134 L Potassium 3.8 Chloride 101 Carbon Dioxide 21 L Anion Gap 16 BUN 10 Creatinine 0.86 Estim Creat Clear Calc 131.8 Estimated GFR > 60 POC Glucose 108 Random Glucose 105 Lactic Acid 1.8 Calcium 9.1 Magnesium 1.2 L* C-Reactive Protein 12.24 H 07/19/24 07/19/24 10:45 17:44 WBC RBC Hgb Hct MCV MCH MCHC RDW Plt Count MPV Immature Gran % (Auto) Neut % (Auto) Lymph % (Auto) [place] % (Auto) Eos % (Auto) Baso % (Auto) Lymph # (Auto) [place] # (Auto) Eos # (Auto) Baso # (Auto) Abs Immat Gran (auto) Absolute Neuts (auto) Absolute Nucleated RBC Nucleated RBC % (auto) Smear Tech's Comments ESR PT INR Sodium Potassium Chloride Carbon Dioxide Anion Gap BUN Creatinine Estim Creat Clear Calc Estimated GFR POC Glucose 86 126 H Random Glucose Lactic Acid Calcium Magnesium C-Reactive Protein Preliminary micro results at discharge 07/16/24 14:12 Blood Culture - Preliminary Blood - Venous No growth after 48 hours. 07/16/24 14:24 Blood Culture - Preliminary Blood - Venous No growth after 48 hours. Discharge Plan Discharge Anticipated Discharge Date/Time: 07/19/24 17:16 Patient Disposition: Home Health Service Discharge Diagnosis: OSteomyelitis Referrals: [facility] [Outside] - 1 Week Shaheed Cyr MD [Primary Care Provider] - 1 Week Discharge Medications: New magnesium oxide 400 mg (241.3 mg magnesium) Tablet 400 mg PO DAILY Qty: 90 0RF oxycodone 5 mg tablet 5 mg PO Q8H PRN (Reason: pain (scale score 7-10)) Qty: 14 0RF Rx Instructions: Partial Fill upon patient request. Continued atorvastatin 40 mg tablet 40 mg PO DAILY cetirizine 10 mg tablet 10 mg PO DAILY verapamil 180 mg tablet extended release 180 mg PO DAILY trazodone 100 mg tablet 100 mg PO BEDTIME PRN (Reason: Insomnia) digoxin 125 mcg (0.125 mg) tablet 125 mcg PO BEDTIME furosemide 20 mg tablet 20 mg PO DAILY insulin glargine [Lantus Solostar U-100 Insulin] 100 unit/mL (3 mL) insulin pen 50 unit subcut BEDTIME Ozempic 0.25 mg or 0.5 mg (2 mg/3 mL) pen injector 0.5 mg SUBCUT APONTE Rinvoq 15 mg tablet extended release 24 hr 15 mg PO DAILY (DME) FreeStyle Lite Strips Strip See Rx Instructions .ROUTE BID Qty: 10 Rx Instructions: As directed Discontinued sulfamethoxazole-trimethoprim 800-160 mg tablet 1 tab PO BID Discharge Orders: Discharge Order (Routine); Ordered 02/10/25 Ordered By: Jas Vargas Diet: Diabetic diet Activity on Discharge: As tolerated Stand Alone Forms: Patient Portal Discharge page Print Language: Setswana Care Plan Goals: Daptomycin for 6 weeks Health Concerns: OSteomyelitis left foot Plan of Treatment: Follow with wound care clinic Daptomycin at home Daily dressing changes at home with Dakins solution Assessment: as above Discharge Date/Time: 07/19/24 19:09
--- NOTE | 2024-07-20 09:55 | P.F2F_ITS ---
Service Date Service Date: 07/20/24 Encounter Date of encounter: 07/19/24 Reasons for Services Signs and symptoms assessed: Has an diabetic foot ulcer on the left foot laterally Reason for group home: wound care and central line care Homebound: Leaving the home is medically contraindicated at this time without the asist of a device and/or another person due th the listed conditions above and below. Reason homebound: unsteady gait / fall risk Certification: Based on the above findings, I certify that this patient is confined to the home and needs intermittent group home care, physical therapy and/or speech therapy, or continues to need occupational therapy. The patient is under my care, and I have initiated the establishment of the plan of care. The patient will be followed by a physician who will periodically review the plan of care. Time Spent With Patient Time: Total time managing care of this patient today ____ minutes.
--- NOTE | 2024-07-21 00:11 | P.CNID_ITS ---
History of Present Illness Data of Consult Service Date: 07/19/24 Requesting physician: Rosmery Jones Primary Care Provider: Shaheed Cyr MD HPI Reason for consult: worse left foot wound He presents for left foot worsening. He has DM foot wound Glycohgb 6. Review of Systems 2 Review of Systems: Yes all other systems are reviewed and are negative [facility] Past Medical History Medical History HLD (hyperlipidemia) Type 2 diabetes mellitus Family History Family history: reviewed and not pertinent Social History Social History Household Members: Spouse Housing: Apartment Alcohol intake: current Alcohol intake frequency: a few times a week Patient Tobacco Use Status: Former Tobacco user service: No Meds Allergies Allergy/AdvReac Type Severity Reaction Status Date / Time thiopental [SODIUM PENTOTHAL] Allergy Severe BECOMES Verified 07/16/24 13:56 VIOLENT morphine Allergy Unknown Unknown Verified 07/16/24 13:56 Sodium pent Allergy Unknown Unknown Uncoded 06/13/24 23:31 Home Medications ?Medication ?Instructions ?Recorded ?Confirmed ?Last Taken ?Type blood sugar diagnostic (FreeStyle #10 ea 07/08/23 Unknown History Lite Strips) atorvastatin 40 mg tablet 40 mg PO DAILY 07/16/24 07/16/24 07/16/24 History cetirizine 10 mg tablet 10 mg PO DAILY 07/16/24 07/16/24 07/16/24 History digoxin 125 mcg (0.125 mg) tablet 125 mcg PO BEDTIME 07/16/24 07/16/24 07/15/24 History furosemide 20 mg tablet 20 mg PO DAILY 07/16/24 07/16/24 07/16/24 History insulin glargine 100 unit/mL (3 50 unit subcut BEDTIME 07/16/24 07/16/24 07/15/24 History mL) subcutaneous pen (Lantus Solostar U-100 Insulin) semaglutide 0.25 mg or 0.5 mg (2 0.5 mg subcut APONTE 07/16/24 07/16/24 07/11/24 History mg/3 mL) subcutaneous pen injector (Ozempic) trazodone 100 mg tablet 100 mg PO BEDTIME PRN Insomnia 07/16/24 07/16/24 Unknown History upadacitinib 15 mg tablet,extended 15 mg PO DAILY 07/16/24 07/16/24 07/16/24 History release 24 hr (Rinvoq) verapamil 180 mg tablet,extended 180 mg PO DAILY 07/16/24 07/16/24 07/16/24 History release Physical Exam 2 Vital Signs: Vital Signs: Last Vital Signs Temp 98.4 F 07/19/24 15:13 Pulse 89 07/19/24 17:55 Resp 16 07/19/24 15:13 BP 138/91 H 07/19/24 17:55 Pulse Ox 96 07/19/24 15:13 O2 Del Method Room Air 07/19/24 15:13 BMI result Body Mass Index 31.2 Const: General: cooperative HEENT: Head: Yes normal to inspection Face and sinus: Yes normal facial exam Mouth: Normal oral and palatal mucosa present Teeth and gingiva: d entition normal Eyes: General: appearance normal, both eyes and all related structures P upils: Equal, round and reactive pupils present Resp: Effort & Inspection: normal respiratory effort Cardio: Rate: regular rate Rhythm: regular rhythm GI: Palpation (GI): Soft to palpation and nontender : General: Yes no CVA tenderness Back/Spine/Pelvis: Back: no CVA tenderness Skin: General skin exam: no rashes or lesions noted Neuro: General: moves all extremities Cranial nerves: Yes Equal, round and reactive pupils present Extrem: Other: left foot 5th toe neuropahty darkness General: Yes normal to inspection Psych: Appearance: grossly normal Results Labs 07/16/24 14:14 07/19/24 05:42 Microbiology Microbiology Results: Microbiology 07/16/24 18:19 Foot Left Gram Stain - Final 07/16/24 18:19 Foot Left Routine Culture - Final Methicillin Res Staph Aureus 07/16/24 14:12 Blood - Venous Blood Culture - Preliminary No growth after 48 hours. 07/16/24 14:24 Blood - Venous Blood Culture - Preliminary No growth after 48 hours. Assessment and Plan (1) Diabetic foot infection: Status: Acute Plan continue antibiotics if OM found 6 weeks Ertapenem or Vanomcycin.
--- NOTE | 2024-07-27 14:15 | P.CDIM_ITS ---
PROVIDER RESPONSE TEXT: To clarify, the appropriate diagnosis supported by the clinical indicators: Acute QUERY TEXT: PHYSICIAN'S DOCUMENTATION REQUEST Date of Query: 07/27/2024 02:00 PM EST Patient Name: Mazin Nichole Admit Date: 07/16/2024 Dear Scout Hill MD, A review of the medical record indicates additional documentation may be needed. Please review below and update the documentation accordingly. Clinical Indicators: record indicates likely Osteomyelitis left foot unable to have an MRI due to nerve stimulator treatment with Dakin's wet to dry dressing daily IV Piperacillin Sod/Tazobactam and Vancomycin Clarify which of the following accurately represents the acuity of the Osteomyelitis. Possible options might include: Acute Acute on chronic Compensated Chronic stable condition Remission Other (explain) Clinically unable to determine (explain) Thank you, Melissa Ramirez RN Use of terms such as suspected, likely, concern for, or probable (associated with a specific diagnosi s that is being evaluated, monitored, or treated as if it exists) are acceptable and can be coded in the inpatient se tting, when documented at the time of discharge. Please use your independent medical judgment in providing your response. THIS QUERY IS PART OF THE PERMANENT MEDICAL RECORD
== END 2024-07-19 19:09 | disposition home health service (06) | DRG 638 ==
LOC: HO.ED 17:24 → HO.EDOVER 18:46 → HO.IMC 19:22
PROVIDERS: Physician Assistant Medical; Student in an Organized Health Care Education/Training Program; Admitting Provider Surgery; Emergency Provider Emergency Medicine; PCP Internal Medicine Medical Oncology; Visit Provider Surgery
DX: E11.69 Type 2 diabetes mellitus with other specified complication (principal); E11.52 Type 2 diabetes mellitus with diabetic peripheral angiopathy with gangrene; I48.19 Other persistent atrial fibrillation; L97.422 Non-pressure chronic ulcer of left heel and midfoot with fat layer exposed; M86.172 Other acute osteomyelitis, left ankle and foot; L03.116 Cellulitis of left lower limb; E11.628 Type 2 diabetes mellitus with other skin complications; E11.621 Type 2 diabetes mellitus with foot ulcer; L30.9 Dermatitis, unspecified; E78.5 Hyperlipidemia, unspecified; E11.65 Type 2 diabetes mellitus with hyperglycemia; Z87.891 Personal history of nicotine dependence; Z79.4 Long term (current) use of insulin; Z79.899 Other long term (current) drug therapy
CPT/HCPCS: 36415; 36573; 71045; 73630; 80048; 80202; 82565; 82947; 83036; 83605; 83735; 85025; 85610; 85652; 86140; 87040; 87070; 87077; 87186; 87205; 93005; 99285; C1751; J0878; J1200; J1885; J2003; J2405; J2543; J3010; J3370; J3371; J3475

== ENCOUNTER → 2024-07-16 13:56 | Outpatient (BNV) | payer MEDICARE, MEDICAID, SELFPAY | PROVIDERS: PCP Internal Medicine Medical Oncology; Visit Provider Radiology Diagnostic Radiology | DX: M84.475A Pathological fracture, left foot, initial encounter for fracture (principal); M86.172 Other acute osteomyelitis, left ankle and foot | CPT/HCPCS: 73630 ==

== ENCOUNTER 2024-07-16 18:38 | Outpatient (BNV) | payer MEDICARE, MEDICAID, SELFPAY | END 2024-07-18 14:43 | PROVIDERS: Admitting Provider Surgery; Emergency Provider Emergency Medicine; PCP Internal Medicine Medical Oncology; Visit Provider Internal Medicine Cardiovascular Disease | DX: I48.91 Unspecified atrial fibrillation (principal); R94.31 Abnormal electrocardiogram [ECG] [EKG]; Z86.79 Personal history of other diseases of the circulatory system | CPT/HCPCS: 93010 ==

== ENCOUNTER 2024-07-16 18:38 | Outpatient (BNV) | payer MEDICARE, MEDICAID, SELFPAY | END 2024-07-19 17:14 | PROVIDERS: Admitting Provider Surgery; Emergency Provider Emergency Medicine; PCP Internal Medicine Medical Oncology; Visit Provider Radiology Diagnostic Radiology | DX: Z45.2 Encounter for adjustment and management of vascular access device (principal) | CPT/HCPCS: 71045 ==

== ENCOUNTER → 2024-07-16 18:38 | Outpatient (BNV) | payer MEDICARE, MEDICAID, SELFPAY | PROVIDERS: Admitting Provider Surgery; Emergency Provider Emergency Medicine; PCP Internal Medicine Medical Oncology; Visit Provider Student in an Organized Health Care Education/Training Program | DX: E11.628 Type 2 diabetes mellitus with other skin complications (principal); L08.9 Local infection of the skin and subcutaneous tissue, unspecified; M86.9 Osteomyelitis, unspecified | CPT/HCPCS: 99231 ==

== ENCOUNTER → 2024-07-16 18:38 | Outpatient (BNV) | payer MEDICARE, MEDICAID, SELFPAY | PROVIDERS: Admitting Provider Surgery; Emergency Provider Emergency Medicine; PCP Internal Medicine Medical Oncology; Visit Provider Internal Medicine | DX: E11.628 Type 2 diabetes mellitus with other skin complications (principal); L08.9 Local infection of the skin and subcutaneous tissue, unspecified | CPT/HCPCS: 99222 ==

== ENCOUNTER → 2024-07-16 18:38 | Outpatient (BNV) | payer MEDICARE, MEDICAID, SELFPAY | PROVIDERS: Admitting Provider Surgery; Emergency Provider Emergency Medicine; PCP Internal Medicine Medical Oncology; Visit Provider Surgery | DX: E11.628 Type 2 diabetes mellitus with other skin complications (principal); L08.9 Local infection of the skin and subcutaneous tissue, unspecified | CPT/HCPCS: 99222; 99232 ==

== ENCOUNTER 2024-08-05 14:35 | Emergency (ER) | payer MEDICARE, MEDICAID, SELFPAY ==
--- NOTE | ~2024-08-05 | XR_ITS ---
EXAMINATION: XR CHEST 1 VIEW HISTORY: PICC line placement. half pulled out? COMPARISON: Comparison is made with the prior examination dated 07/19/2024. FINDINGS: Two AP portable views of the chest performed at 3:39 PM are submitted. The previously seen right-sided PICC line has been retracted approximately 3 cm. The tip is in the distal superior vena cava. The lungs remain hyperinflated, consistent with COPD. The lungs are clear. There is no pleural effusion, pneumothorax, or pulmonary vascular congestion. The heart is normal in size. There is degenerative disc disease of the spine. A spinal stimulator is again seen in place. XR/XR chest 1V IMPRESSION: Interval retraction of the previously seen right-sided PICC line approximately 3 cm, with the tip in the distal superior vena cava. Electronically signed by: Shaheed Hill MD 08/05/2024 03:40 PM ESME
[2024-08-05 14:52] VITALS: BP 115/61; PULSE 60; RESP 18; TEMP 36.2; O2SAT 98; BMI 31.2
--- NOTE | 2024-08-05 14:57 | ED.GENADULT ---
HPI - General Adult General Chief complaint: General Medical Stated complaint: picc line issues, lightheaded Time Seen by Provider: 08/05/24 16:35 Source: patient Mode of arrival: ambulatory Limitations: no limitations History of Present Illness ED Provider: Ron Davies HPI narrative: 53 yold male with pmh of diabetes presents to the ED for PiCC Line issue. patient states his VNA was changing his PICC line dressing and by accident he pulled some the PICC line out by accident and tried to put it back in place. Patient presently is asymptomatic. Related Data Home Medications ?Medication ?Instructions ?Recorded ?Confirmed blood sugar diagnostic (FreeStyle #10 ea 07/08/23 Lite Strips) atorvastatin 40 mg tablet 40 mg PO DAILY 07/16/24 07/16/24 cetirizine 10 mg tablet 10 mg PO DAILY 07/16/24 07/16/24 digoxin 125 mcg (0.125 mg) tablet 125 mcg PO BEDTIME 07/16/24 07/16/24 furosemide 20 mg tablet 20 mg PO DAILY 07/16/24 07/16/24 insulin glargine 100 unit/mL (3 50 unit subcut BEDTIME 07/16/24 07/16/24 mL) subcutaneous pen (Lantus Solostar U-100 Insulin) semaglutide 0.25 mg or 0.5 mg (2 0.5 mg subcut APONTE 07/16/24 07/16/24 mg/3 mL) subcutaneous pen injector (Ozempic) trazodone 100 mg tablet 100 mg PO BEDTIME PRN Insomnia 07/16/24 07/16/24 upadacitinib 15 mg tablet,extended 15 mg PO DAILY 07/16/24 07/16/24 release 24 hr (Rinvoq) verapamil 180 mg tablet,extended 180 mg PO DAILY 07/16/24 07/16/24 release Previous Rx's ?Medication ?Instructions ?Recorded magnesium oxide 400 mg (241.3 mg 400 mg PO DAILY #90 tabs 07/19/24 magnesium) tablet oxycodone 5 mg tablet 5 mg PO Q8H PRN pain (scale score 07/19/24 7-10) #14 tabs Allergies Allergy/AdvReac Type Severity Reaction Status Date / Time thiopental [SODIUM PENTOTHAL] Allergy Severe BECOMES Verified 08/05/24 14:55 VIOLENT morphine Allergy Unknown Unknown Verified 08/05/24 14:55 Sodium pent Allergy Unknown Unknown Uncoded 08/05/24 14:55 Review of Systems Review of Systems: PICC line issue Yes all other systems are reviewed and are negative [facility] Past Medical History Medical History HLD (hyperlipidemia) Type 2 diabetes mellitus Social History Social History Household Members: Spouse Housing: Apartment Alcohol intake: current Alcohol intake frequency: a few times a week Patient Tobacco Use Status: Former Tobacco user Advance Directives: No Advance Directives Information Provided: Yes service: No Physical Exam ED Vital Signs: Vital Signs - 24 hr 08/05/24 14:52 Temperature 97.2 F Pulse Rate 60 Respiratory Rate 18 Blood Pressure 115/61 Pulse Oximetry 98 Oxygen Delivery Method Room Air BMI result Body Mass Index 31.2 Const General: cooperative, healthy appearing, comfortable, no acute distress, well developed, alert, awake and Physically active Orientation/consciousness: patient oriented x3 HENMT Head: Yes normal to inspection, Yes No palpable skull fracture present, Yes normocephalic, Yes atraumatic and No abrasion Eyes General: appearance normal, both eyes and all related structures Neck Neck: Yes normal visual inspection, Yes full ROM, Yes no lymphadenopathy, Yes no meningeal signs, Yes trachea midline, Yes supple, No anterior neck swelling and No lymphadenopathy Chest Chest palpation & inspection: normal inspection of the chest and normal palpation of entire chest wall Resp Effort & Inspection: normal respiratory effort and able to speak in complete sentences Auscultation: clear to auscultation bilaterally Cardio Jugular venous distension: no JVD Heart sounds: S1 normal heart sound present and S2 normal heart sound present GI Inspection: Yes normal to inspection Palpation (GI): Soft to palpation, not firm, nontender, no guarding and not rigid General: Yes no CVA tenderness Back/Spine/Pelvis Back: no CVA tenderness and No back tenderness Skin General skin exam: no rashes or lesions noted, elasticity normal and turgor normal Neuro General: patient oriented x3, gait normal, tone normal, moves all extremities, Normal light touch and pain sensation, no meningeal signs, no focal motor deficits and CN's II-XI intact bilaterally Extrem General: Yes normal to inspection, Yes full ROM and Yes capillary refill normal Psych Appearance: grossly normal, well kempt and not disheveled Course Course Course Narrative: RME: 53 yold male presents to the ED for PICC line issue. Patient states the VNA nurse was at his house changing his PICC line dressing when the NURse pulled some the PICC line out. Patient than states VNA nurse tried to push back in. Chest xray ordered for placement. 4:14pm: Chest x-ray shows retraction of PICC line 3 mm. Tried to call IR PICC line nurses they are busy in the procedure. I text Mary Guzman who is the IR supervisor public message service about the case Medical Decision Making Medical Decision Making MDM Narrative: 53-year-old male presents to ED for PICC line being moved out a little by VNA nurse. Patient states VNA nurse was doing his dressing by accident pulled part of the PICC line out and tried to put it back in which caused some discomfort. Patient came to the ED the PICC line evaluated. Patient denies any swelling of extremity, chest pain, shortness of breath, dizziness, lightheadedness, or any other trauma. Chest x-ray was ordered and showed only 3 cm retraction of PICC line. Case was discussed with IR nurse PICC gasoline tractor operator Mary Sarmiento who states 3 cm retraction is fine and would not cause any mal functioning. She recommend flushing PICC line and getting blood draw back and if fine PICC line is working. Patient's PICC line flushed appropriately without any pain and there was blood draw back without any discomfort. Right upper extremity negative for swelling, bluish discoloration, redness, chest pain, or shortness of breath. Patient explained worrisome signs and informed to return to the ED immediately. Not suspecting DVT, cellulitis, compartment syndrome, osteomyelitits, lymphangitis, or arterial occlusion. Differential Diagnosis Differential Diagnoses: The differential diagnosis associated with the presentation includes (PICC line) Admission/Observation Consideration of admission/observation: Escalation of care including admission/observation considered Consult Healthcare Provider Management of the patient was discussed with: Insole And Heel Stiffener (Mary Sarmiento) Independent Historian Clinical information obtained from an independent historian. History obtained from or confirmed by: Other (patient) Discharge Plan Discharge Clinical Impression: PIC line (peripherally inserted central catheter) flush Patient Disposition: Home, Self-Care Instructions: How to Care for Your PICC (Peripherally Inserted Central Catheter) (ED) Additional Instructions: Recommend follow-up with your primary care provider. Be careful while doing dressing changes. Return to the ED immediately for any swelling, redness, bluish black discoloration, arm pain, chest pain, shortness of breath, fever, chills, or any other concerning symptoms. [address] [address] XRay Report Signed Patient: Mazin Nichole MR#: [id number] : 1970 Acct:[id number] Age/Sex: 53 / M ADM Date: 08/05/24 Loc: HO.ED Attending Dr: Ordering Physician: Ron Davies Date of Service: 08/05/24 Procedure(s): XR chest 1V Accession Number(s): [id number] cc: Ron Davies; Shaheed Cyr MD~ EXAMINATION: XR CHEST 1 VIEW HISTORY: PICC line placement. half pulled out? COMPARISON: Comparison is made with the prior examination dated 07/19/2024. FINDINGS: Two AP portable views of the chest performed at 3:39 PM are submitted. The previously seen right-sided PICC line has been retracted approximately 3 cm. The tip is in the distal superior vena cava. The lungs remain hyperinflated, consistent with COPD. The lungs are clear. There is no pleural effusion, pneumothorax, or pulmonary vascular congestion. The heart is normal in size. There is degenerative disc disease of the spine. A spinal stimulator is again seen in place. XR/XR chest 1V IMPRESSION: Interval retraction of the previously seen right-sided PICC line approximately 3 cm, with the tip in the distal superior vena cava. Electronically signed by: Shaheed Hill MD 08/05/2024 03:40 PM [facility] [place], [place] Dictated By: Shaheed Hill MD Signed By: <Electronically signed by Shaheed Hill MD in OV> 08/05/24 1540 Prescriptions: No Action atorvastatin 40 mg tablet 40 mg PO DAILY cetirizine 10 mg tablet 10 mg PO DAILY verapamil 180 mg tablet extended release 180 mg PO DAILY trazodone 100 mg tablet 100 mg PO BEDTIME PRN (Reason: Insomnia) digoxin 125 mcg (0.125 mg) tablet 125 mcg PO BEDTIME furosemide 20 mg tablet 20 mg PO DAILY insulin glargine [Lantus Solostar U-100 Insulin] 100 unit/mL (3 mL) insulin pen 50 unit subcut BEDTIME Ozempic 0.25 mg or 0.5 mg (2 mg/3 mL) pen injector 0.5 mg SUBCUT APONTE Rinvoq 15 mg tablet extended release 24 hr 15 mg PO DAILY magnesium oxide 400 mg (241.3 mg magnesium) Tablet 400 mg PO DAILY Qty: 90 0RF oxycodone 5 mg tablet 5 mg PO Q8H PRN (Reason: pain (scale score 7-10)) Qty: 14 0RF Rx Instructions: Partial Fill upon patient request. (DME) FreeStyle Lite Strips Strip See Rx Instructions .ROUTE BID Qty: 10 Rx Instructions: As directed Stand Alone Forms: Work/School Release Discharge Date/Time: 08/05/24 17:12 Print Language: Vincentian
--- OUTSIDE RECORDS SUMMARY | 2024-08-05 19:34 | XMS_ITS ---
Author Organization Shaheed Cyr III, MD Address [address] [place] [address] [place] [address] Care Team Providers Care Clinical Documentation Specialist Name Role Phone Shaheed Cyr Primary Care Provider [phone] Medications Medication SIG (Take, Route, Frequency, Duration) Notes Start Date End Date Status oxyCODONE HCl 5 MG 1 tablet as needed Orally every 6 hrs for 5 days Partial Fill upon Patient Request 07/30/2024 08/04/2024 Active Social History Sex Assigned At : Social History Observation Description Sex Assigned At Male Encounters Encounter Location Date Provider Diagnosis Shaheed Cyr III, MD [address] [place] [address] [address] [facility] [facility] [address] 07/30/2024 Shaheed Cyr Plan Of Treatment Medication Medication Name Sig Start Date Stop Date Notes oxyCODONE HCl 5 MG 1 tablet as needed Orally every 6 hrs for 5 days 07/30/2024 08/04/2024 Partial Fill upon Patient Request Next Appt Details Provider Name:Shaheed Cry, 08/16/2024 09:00:00 AM, [address] [place] [address] [place], [address], Progress Notes * Mazin GREENDOB: 9 (53 yo M)Acc No.[id number]:07/30/2024 Patient:?Mazin GREEN :1970???Age:53 Y???Sex:Male Phone: Address:[address] [place] [address], [address], [place], [address] * Refills? Start oxyCODONE HCl Tablet, 5 MG, Orally, 20 Tablet, 1 tablet as needed, every 6 hrs, 5 days, Refills=0 * true * Date:? Generated for Rodrigo rapp/Ginny/Ant on:?08/05/2024 07:34 PM EST
--- OUTSIDE RECORDS SUMMARY | 2024-08-05 19:34 | XMS_ITS ---
Author Organization Shaheed Cyr III, MD Address [address] [place] [address] [place] [address] Care Team Providers Care Tool Keeper Name Role Phone Shaheed Cyr Primary Care Provider REASON FOR VISIT Missed PT Social History Sex Assigned At : Social History Observation Description Sex Assigned At Male Encounters Encounter Location Date Provider Diagnosis Shaheed Cyr III, MD [address] [place] [address] [address] [facility] [place] [address] 08/04/2024 Shaheed Cyr Plan Of Treatment Next Appt Details Provider Name:Shaheed Cyr, 08/16/2024 09:00:00 AM, [address] [place] [address] [place], [place], [address], Progress Notes * Mazin GREENDOB: 9 (53 yo M)Acc No.[id number]:08/04/2024 Patient:?Mazin GREEN :1970???Age:53 Y???Sex:Male Phone: Address:[address], [address], [place], [address] * true * Date:? Generated for Printi tamela/Ginny/eTransmitting on:?08/05/2024 07:33 PM EST
--- OUTSIDE RECORDS SUMMARY | 2024-08-05 19:34 | XMS_ITS ---
Author Organization Shaheed Cyr III, MD Address [address] [place] [address] [place] [address] Care Team Providers Care Sawmill Hand Name Role Phone Shaheed Cyr Primary Care Provider REASON FOR VISIT Rx Request Medications Medication SIG (Take, Route, Fr equency, Duration) Notes Start Date End Date Status FreeStyle Lite Test - as directed In Vitro Twice a day for 90 days Dx: E11.0 Diabetes 08/02/2024 Active Social History Sex Assigned At : Social History Observation Description Sex Assigned At Male Encounters Encounter Location Date Provider Diagnosis Shaheed Cyr III, MD [address] [place] [address] [facility] [place] [address] 08/02/2024 Shaheed Cyr Plan Of Treatment Medication Medication Name Sig Start Date Stop Date Notes FreeStyle Lite Test - as directed In Vit ro Twice a day for 90 days 08/02/2024 Next Appt Details Provider Name:Shaheed Cyr, 08/16/2024 09:00:00 AM, [address] [place] [address] [address] [facility] [phone], Progress Notes * Mazin GREENDOB: 9 (53 yo M)Acc No.[id number]:08/02/2024 Patient:?Mazin GREEN :1970???Age:53 Y???Sex:Male Phone: Address:[address] [place] [address], [address], [place], [address] * Refills? Start FreeStyle Lite Test Strip, -, In Vitro, 200, as directed, Twice a day, 90 days, Refills=3 Subjective: * Chief Complaints: * ???Rx Request * Medical History:? * Surgical History:? * Hospitalization/Major Diagno stic Procedure:? * Medications:? Objective: * Vitals:? * Physical Examination:? Assessment: Plan: * Treatment: * Procedure Codes:? * true * Date:? Generated for Rodrigo rapp/Ginny/eTransmitting on:?08/05/2024 07:33 PM EST
== END 2024-08-05 17:12 | disposition home or self-care (01) ==
PROVIDERS: Emergency Provider Emergency Medicine; PCP Internal Medicine Medical Oncology
DX: Z45.2 Encounter for adjustment and management of vascular access device (principal); E11.9 Type 2 diabetes mellitus without complications; E78.5 Hyperlipidemia, unspecified; Z87.891 Personal history of nicotine dependence
CPT/HCPCS: 71045; 99281; 99283

== ENCOUNTER → 2024-08-05 15:23 | Outpatient (BNV) | payer MEDICARE, MEDICAID, SELFPAY | PROVIDERS: PCP Internal Medicine Medical Oncology; Visit Provider Radiology Diagnostic Radiology | DX: Z45.2 Encounter for adjustment and management of vascular access device (principal) | CPT/HCPCS: 71045 ==

== ENCOUNTER 2024-08-16 07:50 | Outpatient (RCR) | payer MEDICARE, MEDICAID, SELFPAY ==
--- NOTE | ~2024-08-16 | XR_ITS ---
EXAMINATION: XR FOOT 3 OR MORE VIEWS LEFT HISTORY: NON HEALING WOUND TO LEFT FOOT COMPARISON: Comparison is made with the prior examination dated 07/16/2024. FINDINGS: Three views of the left foot are submitted. Osseous mineralization is normal. Again seen is a fracture of the proximal phalanx of the 5th toe. There is greater callus formation at the fracture site consistent with interval healing. The joint spaces are preserved. The soft tissues are unremarkable. XR/XR foot LT min 3V IMPRESSION: Healing fracture of the proximal phalanx of the 5th toe. Electronically signed by: Shaheed Hill MD 08/16/2024 09:59 AM EDT
== END 2024-09-15 14:37 | disposition home or self-care (01) ==
LOC: HO.WCC 07:50
PROVIDERS: PCP Internal Medicine Medical Oncology; Visit Provider Surgery
DX: E11.621 Type 2 diabetes mellitus with foot ulcer (principal); L97.525 Non-pressure chronic ulcer of other part of left foot with muscle involvement without evidence of necrosis; E11.69 Type 2 diabetes mellitus with other specified complication; M86.072 Acute hematogenous osteomyelitis, left ankle and foot; L30.9 Dermatitis, unspecified; A49.02 Methicillin resistant Staphylococcus aureus infection, unspecified site; Z79.4 Long term (current) use of insulin; Z79.84 Long term (current) use of oral hypoglycemic drugs; Z79.2 Long term (current) use of antibiotics; Z79.82 Long term (current) use of aspirin; Z79.899 Other long term (current) drug therapy
CPT/HCPCS: 11043; 73630; 99212; 99213

== ENCOUNTER → 2024-08-16 09:29 | Outpatient (BNV) | payer MEDICARE, MEDICAID, SELFPAY | PROVIDERS: PCP Internal Medicine Medical Oncology; Visit Provider Radiology Diagnostic Radiology | DX: S92.512D Displaced fracture of proximal phalanx of left lesser toe(s), subsequent encounter for fracture with routine healing (principal) | CPT/HCPCS: 73630 ==